=== PATIENT | female | born 1960 | race Caucasian/White ===

== ENCOUNTER 2016-09-12 11:44 | Inpatient (IN) | payer MEDICAID ==
[~2016-09-12] VITALS: Ht 157.5 cm; Wt 82.7 kg
--- NOTE | ~2016-09-12 | HEMODYNAMI ---
PATIENT:JEANETH FARRELL MEDICAL RECORD: [id number] : 58 [id number] ADMISSION DATE: 09/12/16 Generatedon:09/14/201612:28 Patient name: JEANETH FARRELL Patient #: [id number] SSN: : 1960 Date of study: 09/14/2016 Page: Of Hemodynamic Procedure Report Patient Data Patient Demographics Procedure consent was obtained First Name: JEANETH Gender: Female Last Name: JAMI : 1960 Middle Initial: A Age: 56 year(s) Patient #: [id number] Race: Unknown Additional ID: [id number] Contact details [address]: [address] [place] [address] State: [place] City: [facility] Zip code: [address] Admission Admission Data Admission Date: 09/12/2016 Admission Time: 11:44 Room #: D.2105 Height (in.): 62 BSA: 1.88 (m2) Height (cm.): 157.48 BMI: 35.08 (kg/m2) Weight (lbs.): 191.8 Weight (kg.): 87 Lab Results Lab Result Date: 09/14/2016 Lab Result Time: 0:00 Biochemistry Name Units Result Min Max BUN mg/dl 19 --(----)*- 7 18 Creatinine mg/dl 0.9 --(-*--)-- 0.6 1.3 CBC Name Units Result Min Max Hemoglobin g/dl 11.8 *-(----)-- 13.5 17.5 Procedure Procedure Types Cath Procedure Diagnostic Procedure LHC LHC w/Coronaries Miscellaneous Procedures Moderate Sedation up to 15 minutes Procedure Description Procedure Date Procedure Date: 09/14/2016 Procedure Start Time: 12:17 Procedure End Time: 12:27 Procedure Staff Name Function Domenic Aldrich MD Performing Physician Nacho Martinez RN Nurse Arsh Alvarez RT Monitor Abby Eubanks RT Scrub Procedure Data Cath Procedure Fluoroscopy Diagnostic fluoroscopy Total fluoroscopy Time: 0.8 time: 0.8 min min Diagnostic fluoroscopy Total fluoroscopy dose: dose: 180.03 mGy 180.03 mGy Contrast Material Contrast Material Type Amount (ml) Isovue 300 52 Entry Location Entry Primary Successful Side Size Upsize Upsize Entry Closure Succes sful Closure Location (Fr) 1 (Fr) 2 (Fr) Remarks Device Remarks Femoral Right 5 Fr Vascade artery Closure System Estimated blood loss: 10 ml Diagnostic catheters Device Type Used For End Catheter Placement Cordis 5Fr Pigtail LV Angiography Catheter (MP) Cordis 5Fr JL 4.0 Coronary Catheter (MP) Angiography Cordis 5Fr 3DRC Catheter Coronary (MP) Angiography Procedure Complications No complications Procedure Medications Medication Administration Route Dosage Oxygen NC 2 l/min Heparin Flush Bag added to field 2 bags (1000units/500ml NS) 0.9% NaCl I.V. 100 ml/hr Radial Cocktail added to field 1 syringe (Verapomil 2mg/Nitro 400mcg/Heparin 1500units) Fentanyl I.V. 100 mcg Versed I.V. 2 mg Fentanyl I.V. 100 mcg Versed I.V. 2 mg Hemodynamics Rest BSA: 1.88 (m2) HGB: 11.8 (g/dl) O2 Consumption: Estimated: 187.11 (ml/min) O2 Co nsumption indexed: Estimated:99.53 (ml/min/m) Heart Rate: 80 (bpm) Pressure Samples Time Site Value (mmHg) Purpose Heart Use Rate(bpm) 12:19 AO (104) Snapshot 82 Snapshots Pre Cath Intra NCS Post Cath Vital Signs Time Heart Resp SPO2 NIBP (mmHg) Rhythm Pain Sedation Rate (ipm) (%) Status Level (bpm) 12:09:43 81 17 93 139/70(97) NSR 0 (11) 10(A) , No pain 12:14:03 86 17 98 143/79(103) NSR 0 (11) 10(A) , No pain 12:18:27 80 19 97 127/77(104) NSR 0 (11) 10(A) , No pain 12:22:49 90 18 92 133/69(97) NSR 0 (11) 10(A) , No pain 12:27:11 85 18 90 129/71(97) NSR 0 (11) 10(A) , No pain Medications Time Medication Route Dose Verified Delivered Reason Notes Eff ectiveness by by 12:12:14 Oxygen NC 2 l/min Nacho Griffith used for Juan Martinez receiving operator RN 12:12:27 Heparin Flush added 2 bags Nacho Griffith used for Bag to Juan Martinez receiving operator (1000units/500ml field RN NS) 12:12:53 0.9% NaCl I.V. 100 Nacho Griffith Per ml/hr Juan Martinez RN physician RN 12:13:06 Radial Cocktail added 1 Nacho Griffith used for (Verapomil to syringe Juan Martinez receiving operator 2mg/Nitro field RN 400mcg/Heparin 1500units) 12:14:03 Fentanyl I.V. 100 mcg Nacho Griffith for Juan Martinez RN sedation RN 12:14:10 Versed I.V. 2 mg Nacho Chavezy for Juan Martinez RN sedation RN 12:19:16 Fentanyl I.V. 100 mcg Nacho Griffith for Juan Martinez RN sedation RN 12:19:22 Versed I.V. 2 mg Nacho Chavezy for Juan Martinez RN sedation rn relief charge Log Time Note 11:40:07 Nacho Martinez RN sent for patient. Start room use. 11:48:13 Time tracking: Regular hours 11:48:17 Plan of Care:Hemodynamics will remain stable., Cardiac rhythm will remain stable., Comfort level will be maintained., Respiratory function will remain adequate., Patient/ family verbilizes understanding of procedure., Procedure tolerated without complication., Recovers from procedure without complications.. 11:50:21 Patient Height : 157.48 inches 11:50:25 Patient Weight : 87 lbs 11:50:55 Lab Result : Hemoglobin 11.8 g/dl 11:50:55 Lab Result : Creatinine 0.9 mg/dl 11:50:55 Lab Result : BUN 19 mg/dl 11:57:36 Patient received from PCU to CCL 3 Alert and oriented. Tansferred to table in Supine position. 11:57:38 Warm blankets applied, and latha hugger turned on for patient comfort. 11:57:38 Correct patient and procedure confirmed by team. 11:57:39 Signed procedure consent form obtained from patient. 11:57:39 ECG and BP/O2 sat monitors applied to patient. 12:08:21 Vital chart was started 12:08:45 Baseline sample Acquired. 12:08:50 Rhythm: sinus rhythm 12:08:51 Full Disclosure recording started 12:09:03 H&P Date Dictated: 09/12/2016 Within 30 days and on chart.. 12:09:04 Pre-procedure instructions explained to patient. 12:09:04 Pre-op teaching completed and patient verbalized understanding. 12:09:06 Family in waiting room. 12:09:07 Patient NPO since Midnight. 12:09:08 Is the patient allergic to Iodine/contrast media? No. 12:09:11 Is patient on blood thinner?No 12:09:51 ACC The patient was administered the following blood thiners within the last 24 hours: None 12:10:02 Patient diabetic? No. 12:10:04 Patient not . Patient is over age 55. 12:10:05 Previous problem with sedation/anesthesia? No ? 12:10:07 Snore? Yes 12:10:08 Sleep apnea? No 12:10:09 Deviated septum? No 12:10:10 Opens mouth fully? Yes 12:10:11 Sticks out tongue? Yes 12:10:13 Airway obstruction? No ? 12:10:15 Dentures? No ? 12:10:18 Pre procedure: right dorsailis pedis pulse 1+ Palpable, but thready & weak; easily obliterated 12:10:23 Patient pain scale 0/10 ?. 12:10:26 Modified Ruy's test Ulnar < 7 seconds 12:10:33 IV patent on arrival in right forearm with 0.9% NaCl at KVO. 12:10:36 Lab results completed and on chart. 12:10:47 Right Radial & Right Groin area was prepped with chlora-prep and draped in sterile fashion 12:10:48 Alarms reviewed by R. N. 12:10:49 Sharps counted by scrub and verified by R.N. 12:11:06 Use device set Radial Dx 12:11:09 Tegaderm 4 x 4 opened to sterile field. 12:11:11 Acist Hand Control opened to sterile field. 12:11:11 Acist Manifold opened to sterile field. 12:11:12 Acist Syringe opened to sterile field. 12:11:13 Medline Cath Pack opened to sterile field. 12:11:13 Bag Decanter opened to sterile field. 12:11:14 St Fernando 260cm J .035 wire opened to sterile field. 12:12:14 Oxygen 2 l/min NC was given by Nacho Martinez RN; used for procedure; 12:12:27 Heparin Flush Bag (1000units/500ml NS) 2 bags added to field was given by Nacho Martinez RN; used for procedure; 12:12:46 Physician paged 12:12:53 0.9% NaCl 100 ml/hr I.V. was given by Nacho Martinez RN; Per physician; 12:13:06 Radial Cocktail (Verapomil 2mg/Nitro 400mcg/Heparin 1500units) 1 syringe added to field was given by Nacho Martinez RN; used for procedure; 12:13:52 --------ALL STOP TIME OUT------ 12:13:53 Final Timeout: patient, procedure, and site verified with staff and physician. All members of the team are in agreement. 12:13:54 Right Radial & Right Groin site verified by team. 12:13:57 Physical assessment completed. ASA score P 2 - A patient with mild systemic disease as per Domenic Aldrich MD. 12:14:00 Sedation plan: IV Moderate Sedation Versed, Fentanyl 12:14:03 Fentanyl 100 mcg I.V. was given by Nacho Martinez RN; for sedation; 12:14:10 Versed 2 mg I.V. was given by Nacho Martinez RN; for sedation; 12:16:59 Physician opted for femoral approach due to inability to palpate radial pulse. 12:17:03 Procedure started. 12:17:06 Local anesthetic to right femoral artery with Lidocaine 2% by Domenic Aldrich MD.INITIAL ACCESS ONLY 12:17:16 Terumo 5Fr Welcome Sheath opened to sterile field. 12:17:41 Use device set Multipack Set 12:17:43 Diagnostic Infinity 5Fr Multipack catheter opened to sterile field. 12:18:06 A 5 Fr sheath was inserted into the Right Femoral artery 12:18:13 Zero performed for pressure channel P1 12:18:31 A Cordis 5Fr Pigtail Catheter (MP) was advanced over the wire and used for LV Angiography. 12:18:35 LV gram done using FIGUEROA 12:18:42 Zero performed for pressure channel P1 12:19:00 EF : 55 % 12:19:06 Injector settings: Ml/sec: 10, Volume: 20, 12:19:08 Catheter removed. 12:19:16 Fentanyl 100 mcg I.V. was given by Nacho Martinez RN; for sedation; 12:19:17 A Cordis 5Fr JL 4.0 Catheter (MP) was advanced over the wire and used for Coronary Angiography. 12:: Versed 2 mg I.V. was given by Nacho Martinez RN; for sedation; 12:19:29 LCA angiography performed. 12:20: Catheter removed. 12:20:33 A Cordis 5Fr 3DRC Catheter (MP) was advanced over the wire and used for Coronary Angiography. 12:21:08 Vascade 5Fr Closure Device opened to sterile field. 12:21:16 RCA angiography performed. 12:21:33 Catheter removed. 12:21:47 Sheath removed intact; hemostasis achieved with Vascade Closure System to the Right Femoral artery. 12:21:51 Procedure ended.(Physican Out) 12:22:10 Fluoroscopy time 00.80 minutes. 12:22:16 Fluoroscopy dose: 180.03 mGy 12:22:16 Flurop Dose total: 180.03 12:22:19 Contrast amount:Isovue 300 52ml. 12:22:26 Sharps counted by scrub and verified by R.N. 12:22:28 Insertion/operative site no bleeding no hematoma. 12:22:31 Post-op/insertion site Right Femoral artery dressed using a 4 x 4 and Tegaderm. 12:22:32 Post Procedure Pulses reassessed and unchanged 12:22:34 Post-procedure physical assessment completed. ASA score P 2 - A patient with mild systemic disease as per Domenic Aldrich MD. 12:22:37 Post procedure rhythm: unchanged. 12:22:39 Estimated blood loss: 10 ml 12:22:41 Post procedure instruction explained to patient.Patient verbalizes understanding. 12:22:41 Patient needs reinforcement of post procedure teaching. 12:22:49 Procedure Complication : No complications 12:22:57 Procedure type changed to Cath procedure, Diagnostic procedure, LHC, LHC w/Coronaries, Miscellaneous Procedures, Moderate Sedation up to 15 minutes 12:24:22 Procedure and supply charges have been captured, reviewed, submitted and are correct. 12:27:28 Vital chart was stopped 12:27:29 See physician's report for complete and final results. 12:27:33 Report given to PCU. 12:27:52 Patient transfered to PCU with Bed. 12:27:53 Procedure ended. 12:27:53 Full Disclosure recording stopped 12:28:06 End room use (Document Last) Device Usage Item Name Manufacture Quantity Catalog Number Hospital Part Current Minima l Lot# / Charge Number Stock Stock Serial# Code Tegaderm 4 3M 1 [id number] 280781 565609 5 x 4 Acist Hand Acist 1 15801 455103 850446 754044 5 Control Medical Systems Inc Acist Acist 1 19474 969730 081376 271661 5 Manifold Medical Systems Inc Acist Acist 1 11157 902997 298353 872427 20 Syringe Medical Systems Inc Medline Cardinal 1 [id number] 101259 13987 381944 5 Cath Pack Health Bag Microtek 1 2002S 422602 09315 188830 [address] Fernando 1 [id number] 367299 593696 206824 30 260cm J .035 wire Terumo 5Fr Terumo 1 [id number] 695840 438044 477562 40 Welcome Sheath Diagnostic Cardinal 1 [id number] 716459 61518 629197 30 Infinity Health 5Fr Multipack catheter Cordis 5Fr Cardinal 1 [id number] 5 Pigtail Health Catheter (MP) Cordis 5Fr Cardinal 1 [id number] 5 JL 4.0 Health Catheter (MP) Cordis 5Fr Cardinal 1 [id number] 5 3DRC Health Catheter (MP) Vascade Cardiva 1 [id number] 209381 15976 017737 10 5Fr Medical, Closure Inc. Device Signature Audit [place] Stage Time Signature Unsigned Intra-Procedure 09/14/2016 Arsh Alvarez 12:28:18 PM RT(R) Signatures Monitor : Arsh Alvarez RT Signature : Date : Time : [facility] [address] [place] [address]
[~2016-09-12 11:44] MED LIST: BAYER CHEWABLE81 MG PO; CORDARONE200 MG PO; EFFIENT10 MG PO; ELAVIL25 MG PO; HYDROCODONE-APA1 TAB PO; IMDUR30 MG PO; ISOSORBIDE MONO30 M1 PO; NITROSTAT0.4 MG SL; PACERONE200 MG PO; PLAVIX75 MG PO; RANEXA1000 MG PO; SOMA250 MG PO; SOMA350 MG PO; ULTRAM50 MG PO; XANAX1 MG PO; ZANAFLEX2 M1 PO
--- NOTE | 2016-09-12 12:03 | NUR ---
RECEIVED PATIENT DIRECT ADMIT TO ROOM VIA WHEELCHAIR. LOTS OF FAMILY AT BEDSIDE. PATIENT CHANGING INTO GOWN, WILL ASSESS AND ADMIT.
[2016-09-12] MEDS ORDERED: LIPITOR20 MG PO (12:17)
[2016-09-12] MEDS ORDERED: LASIX40 MG PO (12:17)
[2016-09-12 12:18] VITALS: BP 151/92; BMI 35.2
[2016-09-12] MEDS ORDERED: CYMBALTA20 MG PO (12:18)
--- NOTE | 2016-09-12 12:38 | NUR ---
PATIENT HAS 3 DRESSING TO TO ARMS AND HANDS. STATES THAT SHE PLACED THEM THERE TODAY AND THAT IF WE TRY AND REMOVE THEM, HER SKIN WILL TEAR IT IS THIN. PLACED A DATE ON THE DRESSINGS.
[2016-09-12 12:46] LABS: BASOPHILS 0.1 % (0.0-2.0); EOSINOPHILS 0.6 % (0-7); HEMATOCRIT 35.9 % (36.0-48.0); HEMOGLOBIN 11.6 g/dL (12-16); IMMATURE GRANULOCYTES 0.8 % (0-5); LYMPHOCYTES 10.1 % (15-50); MCHC 32.3 g/dL (31.0-37.0); MONOCYTES 9.9 % (2-11); NEUTROPHILS 78.5 % (40-80); PLATELET COUNT 141 10x3/uL (130-400); RBC 3.52 10x6/uL (4.00-5.40); RDW 13.3 % (11.5-14.5); WBC 8.6 10x3/uL (4.8-10.8)
[2016-09-12 13:03] LABS: ALBUMIN 3.1 g/dL (3.4-5.0); ANION GAP 10.4 mmol/L (8-16); BILIRUBIN - TOTAL 0.35 mg/dL (0.2-1.3); CALCIUM 8.7 mg/dL (8.5-10.1); CARBON DIOXIDE 32.7 mmol/L (21.0-32.0); CREATININE - SERUM 0.9 mg/dL (0.6-1.3); POTASSIUM - SERUM 3.1 mmol/L (3.5-5.1); PROTEIN - SERUM 6.1 g/dL (6.4-8.2)
--- NOTE | 2016-09-12 13:09 | NUR ---
IV access-22 gauge inserted in left hand x 1 attempts. Davina Mcbride RN
--- NOTE | 2016-09-12 13:40 | NUR ---
SALINE LOCK SEEN TO LEFT THUMB AREA PER JESSICA ARNOLD, VENOUS ACCESS NURSE. EKG DONE ORDERED.
--- NOTE | 2016-09-12 14:31 | NUR ---
UA SENT TO LAB ORDERED
--- NOTE | 2016-09-12 14:44 | NUR ---
NEW MEDICATION OF LOVENOX, PROTONIX, AND BUMEX GIVEN TO PATIENT AND EXPLAINED IN THE USEAGE OF IT. DAUGHTER AT BEDSIDE.
--- NOTE | 2016-09-12 16:26 | NUR ---
PAGE TO DR WONG TO CLARIFY GIVING BUMEX 2 MG IV I JUST GAVE ORAL AT 1437. AWAITING CALL BACK.
[2016-09-12 16:27] VITALS: BP 151/53
--- NOTE | 2016-09-12 16:27 | NUR ---
RECEIVED CALL BACK FROM DR WONG AND WAS TOLD TO GIVE THE IV NOW ORDERED.
[2016-09-12 20:00] VITALS: BP 151/50; BP 153/86
[2016-09-13] VITALS: BP 100/68
[2016-09-13 04:00] VITALS: BP 131/79
--- NOTE | 2016-09-13 07:08 | NUR ---
ROUNDING MADE WITH MALE MEMBER ASLEEP IN THE CHAIR. PATIENT DENIES NEEDS AT PRESENT TIME. SALINE LOCK SEEN TO LEFT THUMB AREA, SLIGHTLY SWOLLEN. WILL NEED TO TRY AND RESITE IT. PATIENT NEEDS ANOTHER POTASSIUM RIDER, WILL SWITCH TO PO INSTEAD IV IS NOT LOOKING WORKABLE. BILATERAL LOWER LEGS UP ON PILLOWS, 2-3+ EDEMA SEEN. BILATERAL FEET ARE STILL PUFFY. WILL CONTINUE TO MONITOR.
[2016-09-13 07:32] VITALS: BP 145/71
--- NOTE | 2016-09-13 07:48 | NUR ---
20 G SALINE LOCK TO LEFT FOREARM PER LAUREN JIMENEZ RN X 1 STICK. OLD SALINE LOCK REOVED WITH CATH TIP INTACT.
--- NOTE | 2016-09-13 08:35 | NUR ---
0829-REQUESTING [place] FOR HER LEGS AND FEET PAIN. GIVEN.
[2016-09-13 11:34] VITALS: BP 127/64
[2016-09-13 13:03] VITALS: Ht 157.5 cm; Wt 82.7 kg
--- NOTE | 2016-09-13 13:17 | NUR ---
Patient Name: JEANETH FARRELL Admission Status: Elective Accout number: [id number] Admission Date: 09-12-2016 : 1960 Admission Diagnosis: Attending: DANIEL Current LOS: 1 Anticipated DC Date: Planned Disposition: Home Primary [place]: [place] [employer] [place] Discharge Planning Comments: * Is the patient Alert and Oriented? Yes 0 * How many steps to enter\exit or inside your home? 1 0 * PCP DR. PEREZ 0 * Pharmacy [facility] 0 * Preadmission Environment Home with Family 0 * ADLs Independent 0 * Equipment Crutch Walker 0 * Other Equipment NO MEDICAL EQUIPMENT PROVIDER PREFERENCE 0 * List name and contact numbers for known caregivers / representatives who currently or will assist patient after discharge: GARETH FARRELL, SPOUSE, SUDHAKAR HEARD, SISTER, 0 * Community resources currently utilized None 0 * Please name any agencies selected above. NONE 0 * Additional services required to return to the preadmission environment? No 0 * Can the patient safely return to the preadmission environment? Yes 0 * Has this patient been hospitalized within the prior 30 days at any hospital? No 0 CM MET WITH PT IN ROOM TO DISCUSS DISCHARGE PLANNING AND NEEDS. PT REPORTS LIVING AT HOME INDEPENDENTLY WITH HER SPOUSE. PT HAS WALKER AND CRUTCHES FROM PREVIOUS SURGERY IF NEEDED AND NO MEDICAL EQUIPMENT PROVIDER PREFERENCE. PT HAS NO OUTSIDE SERVICES ASSISTING IN THE HOME. CM DISCUSSED AVAILABILITY OF HOME HEALTH, REHAB SERVICES AND MEDICAL EQUIPMENT. PT DENIES DISCHARGE NEEDS, REPORTS HER SISTER OR SPOUSE WILL PICK HER UP FOR DISCHARGE HOME. PT PLANS TO DISCHARGE HOME WITH SPOUSE, NO ANTICIPATED NEEDS. CM TO FOLLOW AND ASSIST IF NEEDED. Measuring Machine Operator: Lavelle Yee
--- NOTE | 2016-09-13 14:30 | NUR ---
3 DRESSING'S TOTAL TO ARMS CHANGED PATIENT TOOK SHOWER. THESE DRESSING WERE FROM YESTERDAY. ALL REMOVED, CLEAN SKIN TEARS SEEN, MEPILEX APPLIED AND DATED. TOLERATED WELL.
[2016-09-13 15:33] VITALS: BP 117/47
--- NOTE | 2016-09-13 17:59 | NUR ---
HEART CATH PERMIT SIGNED AND WITNESSED FOR TOMORROW, PLACED ON CHART.
[2016-09-13 20:00] VITALS: BP 125/62
--- NOTE | 2016-09-13 21:04 | NUR ---
PT AWAKE, ALERT, ORIENTED, DENIES ANY ACUTE NEEDS AT THIS TIME. CONTINUE TO MONITOR CLOSELY.
[2016-09-14] VITALS: BP 133/48
[2016-09-14 04:00] VITALS: BP 111/67
--- NOTE | 2016-09-14 05:54 | NUR ---
PT AWAKE, ALERT, ORIENTED, JUST RECEIVED HER HIBICLENS BATH PRIOR TO CARDIAC CATH THIS AM. CONTINUE TO MONITOR CLOSELY. AT BEDSIDE.
[2016-09-14 05:58] LABS: BASOPHILS 0.1 % (0.0-2.0); EOSINOPHILS 1.1 % (0-7); HEMATOCRIT 36.7 % (36.0-48.0); HEMOGLOBIN 11.8 g/dL (12-16); IMMATURE GRANULOCYTES 3.4 % (0-5); LYMPHOCYTES 11.5 % (15-50); MCH 33.5 pg (26.0-34.0); MCHC 32.2 g/dL (31.0-37.0); MEAN PLATELET VOLUME 10.6 fL (7.4-10.4); MONOCYTES 11.8 % (2-11); NEUTROPHILS 72.1 % (40-80); PLATELET COUNT 136 10x3/uL (130-400); RBC 3.52 10x6/uL (4.00-5.40); RDW 13.5 % (11.5-14.5); WBC 8.4 10x3/uL (4.8-10.8)
[2016-09-14 06:03] LABS: ANION GAP 6.1 mmol/L (8-16); CALCIUM 8.8 mg/dL (8.5-10.1); CARBON DIOXIDE 38.2 mmol/L (21.0-32.0); CREATININE - SERUM 0.9 mg/dL (0.6-1.3)
[2016-09-14 06:10] LABS: POTASSIUM - SERUM 4.3 mmol/L (3.5-5.1)
[2016-09-14 06:13] LABS: MCV 104.3 fL (80.0-100.0)
--- NOTE | 2016-09-14 07:36 | NUR ---
PT SITTING UP IN BED DENIES NEEDS WILL CONT TO MONITOR.
[2016-09-14 07:43] VITALS: BP 125/51
--- NOTE | 2016-09-14 09:57 | NUR ---
PT REPORTING ANXIETY RELATED TO UPCOMING PROCEDURE AND REQUESTS XANAX. XANAX 0.5MG GIVEN PO AFTER PT ASSISTED TO RESTROOM TO VOID PER YUMI PIPER NPC STUDENT.
[2016-09-14 11:17] VITALS: BP 135/66
--- NOTE | 2016-09-14 12:15 | NUR ---
PT HAS LEFT FOR THE MEDICAL AFFAIRS SPECIALIST ABOUT 30 MINS AGO. PT WITH NO PROBLEMS THE DURATION OF THE DAY. HAS BEEN AT BEDSIDE. AND REMAINS IN ROOM DURING PT PROCEDURE. WILL CONT POC
--- NOTE | 2016-09-14 12:38 | NUR ---
PT BACK FROM [facility] SITE WNL. VS WNL. ORDERED PT LUNCH TRAY AT BEDSIDE WILL CONT TO MONITOR.
[2016-09-14 13:05] LABS: APPEARANCE HAZY (CLEAR); COLOR COLORLESS (YELLOW)
[2016-09-14 13:06] LABS: BACTERIA NONE SEEN /hpf (NONE SEEN); BILIRUBIN NEGATIVE (NEGATIVE); EPITHELIAL CELLS NSEEN /hpf (0-5); GLUCOSE NEGATIVE (NEGATIVE); KETONE NEGATIVE (NEGATIVE); LEUKOCYTE ESTERASE NEGATIVE (NEGATIVE); NITRITE NEGATIVE (NEGATIVE); PROTEIN NEGATIVE (NEGATIVE); RED CELLS - URINE RARE /hpf (0-5); SPECIFIC GRAVITY 1.005 (1.005-1.020); UROBILINOGEN NORMAL (NORMAL); WHITE CELLS - URINE NSEEN /hpf (0-5)
--- NOTE | 2016-09-14 13:07 | NUR ---
R GROIN SITE STILL WNL. VS STILL WNL AT BEDSIDE.
--- NOTE | 2016-09-14 15:01 | NUR ---
RESUMED CARE OF PT AT THIS TIME PT LAYING IN BED FLAT UNTIL 1430 THEN BEDREST UP RIGHT GROIN AREA NO HEMOTOMA AND NO BLEEDING OBSERVED CALL LIGHT IN REACH SRX2 BED LOW AND LOCKED RESPERATIONS EVEN AND UNLABORED IVP INFUSING FLUIDS ORDERED AND FAMILY IN ROOM AT BED SIDE WILL MONITOR
[2016-09-14 15:52] VITALS: BP 148/63
[2016-09-14 20:00] VITALS: BP 139/52
[2016-09-15 04:00] VITALS: BP 126/65
--- NOTE | 2016-09-15 05:48 | NUR ---
NURSE ROUNDS 19:30 - PT AWAKE, ALERT, ORIENTED, ON HER CELL PHONE TALKING, AT BEDSIDE. PT DENIES ANY NEEDS. RT GROIN INCISION CLEAN, DRY, INTACT. CONTINUE TO MONITOR CLOSELY.
[2016-09-15 08:08] VITALS: BP 138/69
--- NOTE | 2016-09-15 08:42 | NUR ---
PT CRYING AND VERBALIZING CONCERNS OF UPCOMING PROCEDURE.XANAX 0.5MG GIVEN PER PT REQUEST. PT REPORTING PAIN OF 7 OR 8 OUT OF 10 IN HER FEET NORCO GIVEN PER PT REQUEST. REMAINS AT BEDSIDE, DENIES FURTHER NEEDS.
[2016-09-15 10:50] LABS: CALCIUM 8.8 mg/dL (8.5-10.1); CARBON DIOXIDE 32.9 mmol/L (21.0-32.0); CHLORIDE - SERUM 102 mmol/L (98-107); CREATININE - SERUM 0.8 mg/dL (0.6-1.3); GLUCOSE 92 mg/dL (74-106); SODIUM 140 mmol/L (136-145); eGFR NON AFRICAN AMERICAN 78 mL/min (90-120)
[2016-09-15 10:55] LABS: CALC OSMOLALITY 282 mosm/kg (275-300); COMPLEMENT C4 18.2 mg/dL (17.4-52.2); UREA NITROGEN 24 mg/dL (7-18)
[2016-09-15 10:56] LABS: C-REACTIVE PROTEIN < 0.2 mg/dL (0.0-0.9); POTASSIUM - SERUM 5.1 mmol/L (3.5-5.1)
[2016-09-15 12:27] VITALS: BP 125/64
--- NOTE | 2016-09-15 13:28 | NUR ---
Nutrition follow-up: Diet: low sodium PO intake ~75-100% of meals Labs reviewed Wt: 186# PO intake good at this time RDN following.
[2016-09-15 16:00] VITALS: BP 123/58
--- NOTE | 2016-09-15 19:30 | NUR ---
RECEIVED PT IN BED AAOX4 VISITING WITH FAMILY REQUESTING ZANEFLEX XANAX AND NORCO WITH BEDTIME MEDS STATES CRAMPING AL OVER
[2016-09-15 20:00] VITALS: BP 131/70
[2016-09-16] VITALS: BP 126/66
[2016-09-16 04:00] VITALS: BP 106/73
[2016-09-16 08:00] VITALS: BP 113/67
--- NOTE | 2016-09-16 08:47 | OP ---
PATIENT NAME: JEANETH FARRELL MEDICAL RECORD: [id number] :58 LOCATION:D.M2 D.2105 ADMISSION DATE:09/12/16 SURGEON: JANNA WONG MD DATE OF OPERATION: 09/14/2016 PROCEDURES: 1. Left heart catheterization. 2. Selective coronary angiography. 3. Left ventriculogram. INDICATIONS: Coronary artery disease, upcoming mitral valve surgery. PROCEDURE IN DETAIL: After informed consent was obtained and after a detailed explanation of the risks, benefits as well as alternative therapies, the patient elected to proceed with angiogram and heart catheterization. The right femoral area was prepped and draped in normal sterile fashion. The right femoral artery was cannulated via modified Seldinger technique with placement of a 5-Kiswahili sheath. All catheters exchanged through this sheath. FINDINGS: Left ventriculogram was performed in the standard 30-degree FIGUEROA view, reveals good cardiac wall motion throughout all segments. Overall ejection fraction estimated at 55%. There is 3+ mitral regurgitation. SELECTIVE CORONARY ANGIOGRAPHY: 1. Left main showed no significant angiographic disease. 2. Left anterior descending has previously placed stent in the mid vessel that is widely patent. Distal stent is as well widely patent. Distal LAD is very small. 3. Left circumflex has moderate irregularities, but no flow-limiting stenosis. 4. Right coronary has moderate irregularities, but no flow-limiting stenosis. OVERALL IMPRESSION: No new coronary artery disease is present. Significant mitral regurgitation is present. Evaluate for mitral valve repair or replacement. TRANSINT:[id number] Voice Confirmation ID: [id number] DOCUMENT ID: [id number] JANNA WONG MD at 0847 CC: [id number] DICTATION DATE: 09/14/16 1226 RECONDITIONING ASSOCIATE: 09/14/16 1355 [place] [address]
--- NOTE | 2016-09-16 08:47 | EC ---
PATIENT:JEANETH FARRELL DATE OF SERVICE: 09/12/16 SEX: F MEDICAL RECORD: [id number] DATE OF : [birth year] LOCATION:D.M2 D.210 AGE OF PATIENT: 56 ADMISSION DATE: 09/12/16 REFERRING PHYSICIAN: INTERPRETING PHYSICIAN: JANNA ALDRICH MD ECHOCARDIOGRAM REPORT ECHO CHARGES 4 ECHO COMPLETE CLINICAL DIAGNOSIS: LE EDEMA ECHOCARDIOGRAPHIC MEASUREMENTS (adult normal given) AC root (d.<3.7cm) 3.0 LV Septum d (<1.2 cm> 1.7 Valve Excursion 1.8 LV Septum (systole) 2.1 Left Atria (s.<4.0cm> 4.2 LVPW d(<1.2cm) 1.4 RV (d.<2.3cm) 3.0 LVPW (sytole) 2.2 LV diastole(<5.6CM) 4.3 MV E-F(>70mm/sec) LV systole 2.2 LVOT Diameter 1.8 MV exc.(>10mm) Est.ejection fraction (50-75%) Pericardial Effusion N DOPPLER: LVIT A 101 E 118 LA RVSP 53.0 LVOT 167 AOP1/2T Asc. Ao 190 RVOT 106 RA PA 172 AV Gradient Peak 15.0 AV Mean 6.1 AV Area 2.0 MV Gradient Peak 7.4 MV Mean 3.1 MV Area COMMENTS: Primary Therapist: Karyna ROSAOE Medical Staff Coordinator:1 Dr. Aldrich TAPE# PACS DATE OF SERVICE: 09/12/2016 Echocardiogram FINDINGS: 1. Left ventricular chamber size is within normal limits. Left ventricular systolic function is normal. Overall ejection fraction estimated at 65%. 2. Left atrium is enlarged at 4.3 cm. Right atrium and right ventricular chamber sizes are within normal limits. 3. Valvular structures have normal structure and motion. ECHOCARDIOGRAM REPORT [id number] JEANETH FARRELL 4. Doppler interrogation reveals moderate mitral regurgitation, mild tricuspid regurgitation, no other valvular insufficiency or stenosis, but pulmonary systolic pressure is elevated estimated at 53 mmHg. 5. No evidence of pericardial effusion or left ventricular thrombus. TRANSINT:[id number] Voice Confirmation ID: [id number] DOCUMENT ID: [id number] JANNA ALDRICH MD at 0847 CC: YULI PEREZ MD [id number] DICTATION DATE: 09/12/16 1555 DIRECTOR OF COLLECTIONS AND ARCHIVES: 09/13/16 0030 ADM IN [place] [id number] [place] [id number]
--- NOTE | 2016-09-16 08:47 | CN ---
PATIENT NAME:JEANETH ZAMBRANO MEDICAL RECORD: [id number] : 58 LOCATION:D. D.2105 ADMIT DATE: 09/12/16 ACCOUNT: [id number] CONSULTING PHYSICIAN: JANNA WONG MD REFERRING PHYSICIAN: YULI PEREZ MD DATE OF CONSULTATION: 09/12/2016 Cardiology Consultation DIAGNOSES: 1. Mitral regurgitation. 2. Hypertension. 3. Lower extremity edema. 4. Coronary artery disease. 5. Previous coronary stenting. 6. Hyperlipidemia. HISTORY OF PRESENT ILLNESS: Mrs. Zambrano presents with increasing lower extremity edema, was admitted for diuresis. She had an echocardiogram today revealing pulmonary systolic pressure 53 with moderate mitral regurgitation. Last echo we did on her was in 2013. She only had trace mitral regurgitation at that time and a normal pulmonary systolic pressure of 36. She does have a history of coronary artery disease, previous PTCA stent, the last being 2 years ago of the LAD. She has had no recurrent anginal symptomatology. Her troponin is normal. PHYSICAL EXAMINATION: GENERAL APPEARANCE: Well-nourished, well-developed, appears stated age. Level of distress, comfortable. PSYCHIATRIC: Mental status, alert, normal affect. Orientation, oriented to time, place and person. EYES: Lids and conjunctiva, noninjected. No discharge, no pallor. ENT: Lips, teeth, gums, normal dentition. Oropharynx, no cyanosis, no pallor. NECK: Carotid arteries, bilateral normal upstroke, no bruits, no thrills. JUGULAR VEINS: No jugular venous pressure or distention. CERVICAL LYMPH NODES: Nontender, nonenlarged. THYROID: Not enlarged. Nontender. No nodules. LUNGS: Respiratory effort, unlabored. CHEST: Normal curvature. No thoracic deformity. No chest wall tenderness. Percussion, resonant. Auscultation, clear. No wheezes, no rales, no rhonchi. CARDIOVASCULAR: Precordial exam, nondisplaced. No heaves or pericardial thrills. Rate and rhythm, regular. Heart sounds, normal S1, normal S2. No S3, no gallop, no rub. Systolic murmur, not heard. Diastolic murmur, not heard. EXTREMITIES: Lower extremity examination: She has a 3+ pitting edema of her lower extremity with weeping. ABDOMEN: Soft, nondistended. Normal aorta. No bruit. Nontender. No masses. Liver, nontender, no hepatomegaly. Spleen, nontender, no splenomegaly. MUSCULOSKELETAL: No joint tenderness. No joint swelling. No erythema. NEUROLOGICAL: Normal gait, normal strength, normal tone. SKIN: Warm and dry. OVERALL IMPRESSION: Mitral regurgitation, pulmonary hypertension with resultant lower extremity edema. At this time, mainstay of therapy will be diuresis. We will change her to IV diuresis. We will consult Dr. Brown for possible valve repair in light of the increased mitral regurgitation and pulmonary CONSULT REPORT [id number] JEANETH ZAMBRANO hypertension. TRANSINT:[id number] Voice Confirmation ID: [id number] DOCUMENT ID: [id number] JANNA WONG MD at 0847 CC: [id number] DICTATION DATE: 09/12/16 1619 INCENDIARY POWDER MIXER: 09/12/16 2222 ADM IN [facility] [address] [place] [address]
--- NOTE | 2016-09-16 08:55 | NUR ---
BRIELLE IS RESTING IN HER BED, HOB UP 45 DEGREES. SHE STATES THAT HER HIPS, LOWER LEGS AND HER HEAD ARE HURTING HER. MEDICATED HER PER ORDERS. SHE GAVE AN EXTENSIVE HISTORY OF HER MEDICAL CONDITION AND IS KNOWLEDGABLE ABOUT THEORIES FOR HER CURRENT CONDITION. SHE IS HOPEFUL TO RETURN HOME SOON, SHE HAS A 3 MONTH GRANDDAUGHTER THAT SHE IS CAREGIVER FOR 6 DAYS WEEKLY. SHE HAS NUMEROUS BANDAGES ON BLE DUE TO SKIN TEARS. SHE STATES THAT HER SKIN IS VERY FRAGILE AND SHE BRUISES FOR REASONS THAT ARE UNKNOWN TO HER. TELEMETRY IS ON AND RECORDING SR 77BPM. SHE IS AWARE OF MURMUR AND ANTICIPATES VALVE REPLACEMENT IN THE FUTURE. SHE STATES THAT HER LEGS ARE MUCH IMPROVED. SHE HAS ONLY TRACE EDEMA IN THE RLE.
[2016-09-16 09:58] LABS: BASOPHILS 0.1 % (0.0-2.0); EOSINOPHILS 0.7 % (0-7); HEMATOCRIT 35.6 % (36.0-48.0); HEMOGLOBIN 11.3 g/dL (12-16); IMMATURE GRANULOCYTES 1.9 % (0-5); MCH 32.8 pg (26.0-34.0); MCHC 31.7 g/dL (31.0-37.0); MCV 103.2 fL (80.0-100.0); MEAN PLATELET VOLUME 9.9 fL (7.4-10.4); MONOCYTES 9.7 % (2-11); NEUTROPHILS 78.6 % (40-80); PLATELET COUNT 159 10x3/uL (130-400); RBC 3.45 10x6/uL (4.00-5.40); RDW 13.8 % (11.5-14.5); WBC 10.7 10x3/uL (4.8-10.8)
--- NOTE | 2016-09-16 10:02 | NUR ---
PATIENT IS RESTING QUIETLY WITH EYES CLOSED WHEN I ENTER. SHE OPENS EYES WITHOUT VERBAL STIMULI. SHE STATES HTAT SHEIS RELAXING AND WHEN DOING SO SHE CAN GET HER PAIN DOWN TO A 4. SHE DENIES ANY NEEDS AT THIS TIME.
[2016-09-16 10:09] LABS: ANION GAP 8.2 mmol/L (8-16); CALCIUM 8.8 mg/dL (8.5-10.1)
[2016-09-16 10:14] LABS: POTASSIUM - SERUM 4.2 mmol/L (3.5-5.1)
[2016-09-16 12:00] VITALS: BP 100/56
[2016-09-16 13:16] LABS: ANA REFLEX - DBL STRANDED DNA 1 IU/mL (0-9); ANA REFLEX - DIRECT Negative (Negative)
[2016-09-16 16:00] VITALS: BP 120/73
[2016-09-16 21:01] VITALS: BP 132/59
--- NOTE | 2016-09-16 23:08 | NUR ---
INITIAL ROUNDS COMPLETED AT 1920 HRS. PT DENIED ANY DISCOMFRT. SPOUSE AT BEDSIDE. ASSESSMENT COMPLETED AT 2019 RHS. VSS. SR PER CM HR 84. IV TO RFA SL. NUMEROUS BRUISES AND SKIN TEARS NOTED TO BILAT ARMS. BRUISES NOTED TO BILAT LOWER LEGS. ALERT AND ORIENTED TO PERSON, PLACE AND TIME. PM MEDS GIVEN. IV TO RFA OCCLUDED. DC'S WITH CATHETER INTACT. NEW IV STARTED AT 2200 HRS. # 22 TO LAC WITH ATTEMPT X2. PT TOLERATED ACTIVITY WELL. WILL CONTINUE TO MONITOR. SR UP X2, CALL LIGHT WITHIN REACH.
--- NOTE | 2016-09-17 00:19 | NUR ---
PT RESTING WITH EYES CLOSED. RESP EVEN AND REGULAR. SR UP X2, CALL LIGHT WITHIN REACH.
[2016-09-17 01:01] VITALS: BP 116/63
--- NOTE | 2016-09-17 03:02 | NUR ---
PT RESTING WITH EYES CLOSED. RESP EVEN AND REGULAR. SR UP X2, CALL LIGHT WITHIN REACH.
--- NOTE | 2016-09-17 04:19 | NUR ---
PT AWAKE; DENIES ANY DISCOMFORT. WILL CONTINUE TO MONITOR.
[2016-09-17 04:57] VITALS: BP 112/57
--- NOTE | 2016-09-17 06:05 | NUR ---
VSS THROUGHOUT NIGHT. SR PER CM. PT DENIED ANY DISCOMFORT. NEEDS MET; WILL CONTINUE TO MONITOR.
--- NOTE | 2016-09-17 07:00 | NUR ---
RECEIVED REPORT. ASSUMED CARE OF PATIENT. CALL LIGHT WITHIN REACH. DENIES NEEDS AT THIS TIME. PATIENT STATING SHE SHOULD GET TO GO HOME TODAY. NO DISCHARGE ORDERS AT THIS TIME. NO DISTRESS.
[2016-09-17 08:06] VITALS: BP 133/68
--- NOTE | 2016-09-17 09:54 | NUR ---
MEDICATED FOR PAIN AND ANXIETY AT THIS TIME. NO DISTRESS. CALL LIGHT WIHTIN REACH. SPOUSE WITH EYES CLOSED IN CHAIR AT BEDSIDE.
--- NOTE | 2016-09-17 11:15 | NUR ---
PROTONIX PRESCRIPTION CALLED TO [facility] AND SPOKE TO BISHNU. 40MG PO DAILY X 1 MONTH SUPPLY PER .
[2016-09-17 12:00] VITALS: BP 163/97
--- NOTE | 2016-09-17 13:28 | NUR ---
1255 DISCHARGE INSTRUCTIONS PROVIDED TO PATIENT. PATIENT VERBALZIED ALL INSTRUCTIONS PROVIDED. 1310 IV REMOVED FROM LEFT FOREARM. NO BLEEDING FROM SITE. 2X2 GAUZE APPLIED AND SECURED WITH TAPE. CATHETER TIP INTACT. TELEMETRY D/C'D. PATIENT ASSISTED TO GET DRESSED. PATIENT SPOUSE AT BEDSIDE. 1328 PATIENT LEFT UNIT WITH ALL PERSONAL BELONGINGS. PATIENT DISCHARGED TO HOME WITH FAMILY. PATIENT LEFT UNIT IN WHEELCHAIR IN NO DISTRESS AT THIS TIME.
[2016-09-19 16:13] LABS: ANCA - ANTIMYELOPEROXIDASE <9.0 U/mL (0.0-9.0); ANCA - ANTIPROTEINASE 3 <3.5 U/mL (0.0-3.5); ANCA - ATYPICAL <1:20 titer (Neg:<1:20); ANCA - CYTOPLASMIC <1:20 titer (Neg:<1:20); ANCA - PERINUCLEAR <1:20 titer (Neg:<1:20)
== END 2016-09-17 13:30 | disposition home or self-care (01) | DRG 286 ==
LOC: D.M2 11:44
PROVIDERS: Internal Medicine Interventional Cardiology; ADMIT Legal Medicine
PROC: B2151ZZ Fluoroscopy of Left Heart using Low Osmolar Contrast (ICD-10-PCS; 2016-09-14)
PROC: 4A023N7 Measurement of Cardiac Sampling and Pressure, Left Heart, Percutaneous Approach (ICD-10-PCS; 2016-09-14)
PROC: B2111ZZ Fluoroscopy of Multiple Coronary Arteries using Low Osmolar Contrast (ICD-10-PCS; principal; 2016-09-14 11:45)
DX: I25.10 Atherosclerotic heart disease of native coronary artery without angina pectoris (principal); I50.21 Acute systolic (congestive) heart failure; Z95.5 Presence of coronary angioplasty implant and graft; I34.0 Nonrheumatic mitral (valve) insufficiency; I11.0 Hypertensive heart disease with heart failure; E78.5 Hyperlipidemia, unspecified; M25.412 Effusion, left shoulder; M75.92 Shoulder lesion, unspecified, left shoulder; F41.1 Generalized anxiety disorder; M25.569 Pain in unspecified knee; N20.0 Calculus of kidney; D18.09 Hemangioma of other sites; I48.91 Unspecified atrial fibrillation

== ENCOUNTER → 2016-09-21 08:32 | Outpatient (CLI) | payer MEDICAID ==
[2016-09-13 13:03] VITALS: BMI 35.1
[~2016-09-21 08:32] MED LIST changes: +CYMBALTA20 MG PO; +LASIX40 MG PO; +LIPITOR20 MG PO
--- NOTE | 2016-10-03 10:08 | EC ---
PATIENT:JEANETH FARRELL DATE OF SERVICE: 09/21/16 SEX: F MEDICAL RECORD: [id number] DATE OF : 58 LOCATION:D.[facility] AGE OF PATIENT: 56 ADMISSION DATE: 09/21/16 REFERRING PHYSICIAN: INTERPRETING PHYSICIAN: JANNA ALDRICH MD ECHOCARDIOGRAM REPORT ECHO CHARGES 4 ECHO COMPLETE CLINICAL DIAGNOSIS: CHF ECHOCARDIOGRAPHIC MEASUREMENTS (adult normal given) AC root (d.<3.7cm) 3.0 LV Septum d (<1.2 cm> 1.4 Valve Excursion 1.8 LV Septum (systole) 2.0 Left Atria (s.<4.0cm> 4.1 LVPW d(<1.2cm) 1.3 RV (d.<2.3cm) 2.2 LVPW (sytole) 1.9 LV diastole(<5.6CM) 4.2 MV E-F(>70mm/sec) LV systole 2.0 LVOT Diameter 1.7 MV exc.(>10mm) Est.ejection fraction (50-75%) Pericardial Effusion N DOPPLER: LVIT A 86.0 E 112 LA RVSP 37.4 LVOT 126 AOP1/2T Asc. Ao 176 RVOT 88.0 RA PA 113 AV Gradient Peak 12.4 AV Mean 5.3 AV Area 1.7 MV Gradient Peak 6.6 MV Mean 2.4 MV Area COMMENTS: Live In Caregiver: Karyna ROSAOE Production Drilling Machine Operator:1 Dr. Aldrich TAPE# PACS DATE OF SERVICE: 09/21/2016 FINDINGS: 1. Left ventricular chamber size is within normal limits. Left ventricular systolic function is normal. Overall ejection fraction estimated at 60%. 2. Left atrium is mildly enlarged at 4.1 cm. Right atrium and right ventricular chamber sizes are within normal limits. 3. Valvular structures: Aortic valve demonstrates mild calcific aortic stenosis. Valve area calculates to 1.7 cm-squared. There is a gradient of 12 mm across the valve. The remaining valvular structures have normal structure ECHOCARDIOGRAM REPORT [id number] JEANETH FARRELL and motion. 4. Doppler interrogation reveals mild to moderate mitral regurgitation, only mild tricuspid regurgitation, no other valvular insufficiency or stenosis. Pulmonary systolic pressure is normal estimated at 37 mmHg. 5. No evidence of pericardial effusion or left ventricular thrombus. TRANSINT:[id number] Voice Confirmation ID: [id number] DOCUMENT ID: [id number] JANNA ALDRICH MD at 1008 CC: [id number] DICTATION DATE: 09/21/16 1324 CLINICAL SOCIAL WORK AIDE: 09/22/16 0037 DEP CLI 09/21/16 [place] [id number] [place] [id number]
== END | disposition home or self-care (01) ==
LOC: D.ECHO 08:32
DX: I50.21 Acute systolic (congestive) heart failure (principal); I34.0 Nonrheumatic mitral (valve) insufficiency

== ENCOUNTER → 2016-10-06 13:19 | Outpatient (CLI) | payer MEDICAID ==
[2016-09-13 13:03] VITALS: BMI 35.1
== END | disposition home or self-care (01) ==
LOC: D.US 13:00
DX: R10.31 Right lower quadrant pain (principal)

== ENCOUNTER → 2016-10-13 12:32 | Outpatient (CLI) | payer MEDICAID ==
[2016-09-13 13:03] VITALS: BMI 35.1
== END | disposition home or self-care (01) ==
LOC: D.CT 12:32
DX: R10.9 Unspecified abdominal pain (principal); R10.2 Pelvic and perineal pain

== ENCOUNTER → 2016-11-02 13:46 | Outpatient (CLI) | payer MEDICAID ==
[2016-09-13 13:03] VITALS: BMI 35.1
== END | disposition home or self-care (01) ==
LOC: D.LABREF 13:46
DX: E87.6 Hypokalemia (principal)

== ENCOUNTER 2016-12-19 21:30 | Emergency (ER) | payer MEDICAID ==
[2016-09-13 13:03] VITALS: BMI 35.1
[2016-12-19 22:12] LABS: BASOPHILS 0.1 % (0-2); EOSINOPHILS 0.3 % (0-7); HEMOGLOBIN 14.2 g/dL (12-16); IMMATURE GRANULOCYTES 0.3 % (0-5); LYMPHOCYTES 18.3 % (15-50); MCH 33.3 pg (26.0-34.0); MCHC 33.8 g/dL (31.0-37.0); MCV 98.6 fL (80.0-100.0); MEAN PLATELET VOLUME 9.8 fL (7.4-10.4); MONOCYTES 10.2 % (2-11); NEUTROPHILS 70.8 % (40-80); RBC 4.26 10x6/uL (4.00-5.40); WBC 9.1 10x3/uL (4.8-10.8)
[2016-12-19 22:13] LABS: PLATELET COUNT 203 10x3/uL (130-400)
[2016-12-19 22:24] LABS: ALBUMIN 3.5 g/dL (3.4-5.0); ANION GAP 13.7 mmol/L (8-16); BILIRUBIN - TOTAL 0.54 mg/dL (0.2-1.3); CARBON DIOXIDE 29.9 mmol/L (21.0-32.0); CREATININE - SERUM 0.9 mg/dL (0.6-1.3); POTASSIUM - SERUM 3.6 mmol/L (3.5-5.1); PROTEIN - SERUM 7.6 g/dL (6.4-8.2)
[2016-12-19 22:55] LABS: CHOL - HDL RATIO 2.9 ratio (2.3-4.1); CHOLESTEROL, TOTAL 194 mg/dL (0-200); CKMB 0.4 U/L (0.0-3.6); HDL CHOLESTEROL 67 mg/dL (32-96); LDL CHOLESTEROL 111 mg/dL (0-100); LDL-HDL RATIO 1.7 ratio (1.5-3.5); TRIGLYCERIDE 82 mg/dL (30-200); TROPONIN-I 0.004 ng/mL (0.000-0.060)
== END 2016-12-19 23:49 | disposition home or self-care (01) ==
LOC: D.ER 21:30
PROVIDERS: Emergency Medicine
DX: R07.9 Chest pain, unspecified (principal); R06.00 Dyspnea, unspecified; R00.0 Tachycardia, unspecified

== ENCOUNTER → 2017-01-05 10:54 | Outpatient (CLI) | payer MEDICAID ==
[2016-09-13 13:03] VITALS: BMI 35.1
== END | disposition home or self-care (01) ==
LOC: D.RAD 10:54
DX: S32.591A Other specified fracture of right pubis, initial encounter for closed fracture (principal)

== ENCOUNTER 2017-01-31 17:54 | Emergency (ER) | payer MEDICAID ==
[2016-09-13 13:03] VITALS: BMI 35.1
[2017-01-31 19:07] LABS: BASOPHILS 0.2 % (0-2); EOSINOPHILS 0.4 % (0-7); HEMATOCRIT 36.7 % (36.0-48.0); HEMOGLOBIN 12.2 g/dL (12-16); IMMATURE GRANULOCYTES 0.3 % (0-5); LYMPHOCYTES 17.8 % (15-50); MCH 32.7 pg (26.0-34.0); MCHC 33.2 g/dL (31.0-37.0); MCV 98.4 fL (80.0-100.0); MEAN PLATELET VOLUME 10.6 fL (7.4-10.4); MONOCYTES 9.8 % (2-11); NEUTROPHILS 71.5 % (40-80); PLATELET COUNT 163 10x3/uL (130-400); RBC 3.73 10x6/uL (4.00-5.40); RDW 13.5 % (11.5-14.5); WBC 9.3 10x3/uL (4.8-10.8)
[2017-01-31 19:42] LABS: ALKALINE PHOSPHATASE 100 U/L (46-116); ALT (SGPT) 13 U/L (10-68); BILIRUBIN - TOTAL 0.46 mg/dL (0.2-1.3); CALC OSMOLALITY 283 mosm/kg (275-300); CARBON DIOXIDE 31.6 mmol/L (21.0-32.0); CHLORIDE - SERUM 104 mmol/L (98-107); CREATINE KINASE 33 UL (21-215); CREATININE - SERUM 0.9 mg/dL (0.6-1.3); GLUCOSE 103 mg/dL (74-106); POTASSIUM - SERUM 3.2 mmol/L (3.5-5.1); PRO BNP 764 pg/mL (0-125); PROTEIN - SERUM 6.4 g/dL (6.4-8.2); SODIUM 143 mmol/L (136-145); UREA NITROGEN 9 mg/dL (7-18); eGFR NON AFRICAN AMERICAN 68 mL/min (90-120)
[2017-01-31 19:57] LABS: APPEARANCE CLEAR (CLEAR); BILIRUBIN NEGATIVE (NEGATIVE); COLOR YELLOW (YELLOW); GLUCOSE NEGATIVE (NEGATIVE); KETONE NEGATIVE (NEGATIVE); LEUKOCYTE ESTERASE NEGATIVE (NEGATIVE); NITRITE NEGATIVE (NEGATIVE); PROTEIN NEGATIVE (NEGATIVE); SPECIFIC GRAVITY 1.015 (1.005-1.020); UROBILINOGEN NORMAL (NORMAL)
[2017-01-31 20:03] LABS: ALBUMIN 3.2 g/dL (3.4-5.0); CALCIUM 9.1 mg/dL (8.5-10.1); MAGNESIUM - SERUM 1.9 mg/dL (1.8-2.4)
[2017-01-31 20:04] LABS: TROPONIN-I < 0.017 ng/mL (0.000-0.060)
[2017-01-31 20:05] LABS: UDS - AMPHET NEGATIVE QUAL (NEGATIVE); UDS - BARB NEGATIVE QUAL (NEGATIVE); UDS - BENZO NEGATIVE QUAL (NEGATIVE); UDS - COCAINE NEGATIVE QUAL (NEGATIVE); UDS - METH NEGATIVE QUAL (NEGATIVE); UDS - OPIATE POSITIVE QUAL (NEGATIVE); UDS - PCP NEGATIVE QUAL (NEGATIVE); UDS - THC NEGATIVE QUAL (NEGATIVE)
== END 2017-01-31 21:30 | disposition home or self-care (01) ==
LOC: D.ER 17:54
PROVIDERS: Nurse Practitioner Family
DX: R10.2 Pelvic and perineal pain (principal); S32.9XXG Fracture of unspecified parts of lumbosacral spine and pelvis, subsequent encounter for fracture with delayed healing; X58.XXXD Exposure to other specified factors, subsequent encounter

== ENCOUNTER → 2017-02-08 19:16 | Outpatient (CLI) | payer MEDICAID ==
[2016-09-13 13:03] VITALS: BMI 35.1
== END | disposition home or self-care (01) ==
LOC: D.LABREF 19:16
DX: M17.12 Unilateral primary osteoarthritis, left knee (principal); Z11.8 Encounter for screening for other infectious and parasitic diseases

== ENCOUNTER 2017-02-22 10:00 | Inpatient (IN) | payer MEDICAID ==
[~2017-02-22] VITALS: Ht 154.9 cm; Wt 68.2 kg
[~2017-02-22 10:00] MED LIST changes: +ATIVAN0.5 MG PO; +K-DUR20 MEQ PO; +LASIX80 MG; +PROTONIX20 MG PO
[2017-02-22 11:38] LABS: BASOPHILS 0.2 % (0-2); EOSINOPHILS 0.5 % (0-7); HEMATOCRIT 38.2 % (36.0-48.0); HEMOGLOBIN 12.7 g/dL (12-16); IMMATURE GRANULOCYTES 0.3 % (0-5); LYMPHOCYTES 18.2 % (15-50); MCH 32.5 pg (26.0-34.0); MCHC 33.2 g/dL (31.0-37.0); MCV 97.7 fL (80.0-100.0); MEAN PLATELET VOLUME 10.3 fL (7.4-10.4); MONOCYTES 8.1 % (2-11); NEUTROPHILS 72.7 % (40-80); RBC 3.91 10x6/uL (4.00-5.40); WBC 10.1 10x3/uL (4.8-10.8)
[2017-02-22 11:42] LABS: APPEARANCE CLEAR (CLEAR); BILIRUBIN NEGATIVE (NEGATIVE); COLOR STRAW (YELLOW); GLUCOSE NEGATIVE (NEGATIVE); KETONE NEGATIVE (NEGATIVE); LEUKOCYTE ESTERASE NEGATIVE (NEGATIVE); NITRITE NEGATIVE (NEGATIVE); PLATELET COUNT 296 10x3/uL (130-400); PROTEIN NEGATIVE (NEGATIVE); SPECIFIC GRAVITY 1.015 (1.005-1.020); UROBILINOGEN NORMAL (NORMAL)
[2017-02-22 11:50] LABS: ANION GAP 13.3 mmol/L (8-16); CARBON DIOXIDE 31.6 mmol/L (21.0-32.0)
[2017-02-22 11:51] LABS: APTT 23.9 SECONDS (22.8-39.4); INR 0.98 (0.85-1.17); PROTIME 12.8 SECONDS (11.6-15.0)
[2017-02-22 11:55] LABS: POTASSIUM - SERUM 2.9 mmol/L (3.5-5.1)
[2017-02-27] MEDS ORDERED: COMBIVENT RESPIM4 GM INH (06:49)
[2017-02-27 06:54] VITALS: BP 120/57; BMI 28.4
[2017-02-27 13:25] VITALS: BP 133/85
--- NOTE | 2017-02-27 13:25 | NUR ---
RECEIVED TO ROOM 2208 FROM RECOVERY ROOM VIA BED. VSS. INCENTIVE SPIROMETER GIVEN TO PATIENT AND EXPLAINED USE. VERBALIZED UNDERSTANDING. SCDs TO BLE. BED ALARM ON. FOOD AND ICE WATER AT BEDSIDE. CALL LIGHT IN REACH. FAMILY IN ROOM. WILL CONTINUE WITH PLAN OF CARE.
[2017-02-27 13:31] VITALS: BP 133/85; Ht 154.9 cm; Wt 68.2 kg
--- NOTE | 2017-02-27 14:10 | NUR ---
STATES HER PAIN IS AT A 7 AT THIS TIME. TOOK NORCO IN ROOM BUT PATIENT AND FAMILY REQUESTED PERCOCET SO ADMINISTERED PER ORDER. FAMILY AT BEDSIDE. CALL LIGHT IN REACH.
--- NOTE | 2017-02-27 16:31 | NUR ---
TORADOL SIVP. ANCEF 1 GM IVPB. DRSG TO LEFT KNEE REINFORCED BECAUSE OF BLEEDING. SISTER IN ROOM. CALL LIGHT IN REACH.
--- NOTE | 2017-02-27 17:27 | OP ---
PATIENT NAME: JEANETH FARRELL MEDICAL RECORD: [id number] :58 LOCATION:D[facility] ADMISSION DATE:02/27/17 SURGEON: QUIQUE LOZA MD DATE OF OPERATION: 02/27/2017 PREOPERATIVE DIAGNOSIS: Severe degenerative arthritis of the left knee -- valgus arthritis. POSTOPERATIVE DIAGNOSIS: Severe degenerative arthritis of the left knee -- valgus arthritis. PROCEDURE: Left total knee arthroplasty. SURGEON: Quique Loza MD. ANESTHESIA: General. INTRAOPERATIVE COMPLICATIONS: None. 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 IMPLANTS USED: Arthrex total knee arthroplasty system, 4 tibial baseplate, 9 polyethylene insert, 4 distal femoral component and a size 29 patella. OPERATIVE SUMMARY IN DETAIL: After obtaining the appropriate preoperative orthopedic surgery consent as well as anesthetic consultation, evaluation and clearance, the patient was brought to the operating room and placed on the operating table in supine position. After general laryngeal mask was administered, tourniquet was placed about the proximal aspect of the left lower extremity. Left lower extremity was then prepped and draped in routine sterile fashion. Leg was elevated, exsanguinated and tourniquet was inflated to 350 mmHg. Midline incision was taken down for paramedian arthrotomy. Patella was everted and soft tissue excision was done in the usual fashion. Intramedullary guide hole was created for intramedullary guided cuts. The distal femur was cut. This was followed by complete exposure of the proximal tibia and again, the tibia was cut using intramedullary guidance. Appropriate measurements were taken. Chamfer cuts were made on the distal femur. Trials were put into place, taken through range of motion and found to be excellent and stable in all planes. Final distal femoral and proximal tibial preparations were made. This was followed by resection of the arthritic surface of the patella and it was prepared for size 29. At this point, the knee was irrigated with pulsatile lavage irrigation. After copious pulsatile lavage irrigation, bone ends were dried and the final components were cemented into place. All excess cement was removed. After it was allowed to harden, the knee was taken through range of motion and found to be stable in all planes with good patellar tracking. The paramedian arthrotomy was closed with #2 Ethibond followed by #1 Vicryl, 2-0 Vicryl and skin onesimo. Sterile dressings were applied. Tourniquet was deflated. The patient was awakened, taken to recovery in stable condition. All final needle and sponge counts were correct. TRANSINT:[id number] Voice Confirmation ID: [id number] DOCUMENT ID: [id number] OPERATIVE REPORT [id number] JEANETH FARRELL MD, QUIQUE RAMOS at 1727 CC: [id number] DICTATION DATE: 02/27/17 1219 BIT TAPPER: 02/27/17 1515 ADM IN [place] [id number] [place] [address]
--- NOTE | 2017-02-27 18:45 | NUR ---
PERCOCET PO PER C/O PAIN. NO CHANGES IN INITIAL ASSESSMENT. CALL LIGHT IN REACH. BED ALARM ON. SCDs TO RLE. CALL LIGHT IN REACH. WILL CONTINUE WITH PLAN OF CARE.
[2017-02-27 19:00] VITALS: BP 144/66
--- NOTE | 2017-02-27 19:41 | NUR ---
REC'D.IN BED LEFT LEG IN CPM.DRSG. INTACT TO LEFT KNEE FOOT PINK AND WARM GOOD PEDAL PULSE.STATES LOWER EXT. STILL LITTLE NUMB. WILL CONTINUE TO MONITOR FOR ANY CHGES IN NEUROVASCULAR STATUS AND FOLLOW CURRENT PLAN OF CARE.
[2017-02-28] VITALS: BP 132/97
[2017-02-28 03:45] LABS: HEMATOCRIT 24.9 % (36.0-48.0); HEMOGLOBIN 8.1 g/dL (12-16); MCH 32.3 pg (26.0-34.0); MCHC 32.5 g/dL (31.0-37.0); MCV 99.2 fL (80.0-100.0); MEAN PLATELET VOLUME 10.1 fL (7.4-10.4); RBC 2.51 10x6/uL (4.00-5.40); RDW 13.2 % (11.5-14.5); WBC 12.9 10x3/uL (4.8-10.8)
[2017-02-28 04:00] VITALS: BP 137/57
--- NOTE | 2017-02-28 08:12 | NUR ---
SEEN THIS AM. COMPLAINTS OF PAIN TO LEFT KNEE-CURRENTLY IN CPM MACHINE. ABLE TO MOVE TOES FREELY-PINK AND WARM. BRUISING NOTED TO RIGHT THIGH AND LEFT ARM-LEFT GOOT SWOLLEN 2+. TORADOL GIVEN FOR PAIN. SCD X 1 NOTED RIGHT CALF. FAMILY AT BEDSIDE. CALL LIGHT IN REACH. BED ALARM ON FOR SAFETY
[2017-02-28 08:42] VITALS: BP 134/58
--- NOTE | 2017-02-28 09:48 | NUR ---
Patient Name: JEANETH FARRELL Admission Status: Elective Accout number: [id number] Admission Date: 02-27-2017 : 1960 Admission Diagnosis: Attending: SATISH Current LOS: 1 Anticipated DC Date: Planned Disposition: Home Primary Insurance: [place] [employer] [facility] Discharge Planning Comments: CM met with patient and daughter (Mikhail Acevedo) to assess discharge planning needs. Patient lives at home with her daughter and her and plans to return there at discharge with [facility] OP PT. Patient has 4 stairs to go up to enter in her house. Patient has a bed side commode, walker, and a shower chair. CM will continue to follow and assist with discharge planning needs. PCP: [facility] Mikhail Layton (daughter) [phone] Rn Radiation: Melina Ingram * Is the patient Alert and Oriented? Yes 0 * How many steps to enter\exit or inside your home? 4 0 * PCP CHRIS 0 * Pharmacy [facility] 0 * Preadmission Environment Home with Family 0 * ADLs Independent 0 * Equipment Bedside Commode Shower Chair Walker 0 * List name and contact numbers for known caregivers / representatives who currently or will assist patient after discharge: MIKHAIL LAYTON (DAUGHTER) 0 * Community resources currently utilized None 0 * Additional services required to return to the preadmission environment? Yes 0 * Can the patient safely return to the preadmission environment? Yes 0 * Has this patient been hospitalized within the prior 30 days at any hospital? No 0 Grand Total: 0
--- NOTE | 2017-02-28 09:57 | NUR ---
Patient's OP PT appointment set up for Mar 03 @ 10.:45am
--- NOTE | 2017-02-28 11:15 | NUR ---
REPORT RECIEVED ASSUMED CARE. PATIENT IN BED WITH IV INTACT. NO COMPLAINTS A THIS TIME. CALL LIGHT WITHIN REACH.
--- NOTE | 2017-02-28 12:00 | NUR ---
PATIENT SITTING ON BED. STATED SHE WANTS TO GO WALK. EXPLAINED TO PATIENT SHE COULD WALK IN THE HALLWAYS, NOT ALLOWED TO GO OUT AND SMOKE. VERBALIZED UNDERSTANDING. CALL LIGHT WITHIN REACH. IV INTACT. FAMILY AT SIDE.
[2017-02-28 14:10] VITALS: BP 134/79
--- NOTE | 2017-02-28 14:10 | NUR ---
PATIENT TO OR.
--- NOTE | 2017-02-28 16:40 | NUR ---
BLOOD COMPLETE AT THIS TIME. VS STABLE. NO COMPLAINTS. FAMILY AT BEDSIDE. CALL LIGHT WITHIN REACH.
--- NOTE | 2017-02-28 18:55 | NUR ---
PATIENT IN BED WITH IV INTACT. NO COMPLAINTS AT THIS TIME. FAMILY AT BEDSIDE. CPM ON. CALL LIGHT WITHIN REACH.
[2017-02-28 19:00] VITALS: BP 109/52
[2017-03-01] VITALS: BP 114/51
--- NOTE | 2017-03-01 02:00 | NUR ---
PT IN BED WITH NO DISTRESS. RESPIRATIONS EVEN AND UNLABORED. SIDE RAILS X 2. BED LOW. CALL LIGHT IN REACH.
[2017-03-01 04:00] VITALS: BP 96/55
[2017-03-01 05:41] LABS: HEMATOCRIT 25.6 % (36.0-48.0); HEMOGLOBIN 8.4 g/dL (12-16); MCH 31.9 pg (26.0-34.0); MCHC 32.8 g/dL (31.0-37.0); MCV 97.3 fL (80.0-100.0); MEAN PLATELET VOLUME 10.3 fL (7.4-10.4); RBC 2.63 10x6/uL (4.00-5.40); RDW 15.8 % (11.5-14.5); WBC 12.2 10x3/uL (4.8-10.8)
--- NOTE | 2017-03-01 07:20 | NUR ---
REPORT RECEIVED FROM DIRECTOR SEARCH MARKETING STRATEGIES NURSE. CALL LIGHT IN REACH.
--- NOTE | 2017-03-01 08:05 | NUR ---
ASSESSMENT COMPLETED. PERCOCET PO WITH AM MEDS ADMINISTERED. ICE TO LEFT KNEE. BED ALARM ON. SCDs TO BLE. CALL LIGHT IN REACH. WILL CONTINUE WITH PLAN OF CARE.
[2017-03-01 08:38] VITALS: BP 101/42
--- NOTE | 2017-03-01 09:30 | NUR ---
PATIENT UP AMBULATING IN HALLWAY WITH PHYSICAL THERAPY. NO SIGNS OF DISTRESS NOTED.
--- NOTE | 2017-03-01 10:47 | NUR ---
IN CHAIR RESTING WITH EYES CLOSED. RESP EVEN AND UNLABORED. CALL LIGHT IN REACH.
--- NOTE | 2017-03-01 12:05 | NUR ---
PERCOCET PO PER C/O PAIN OF 7 TO LEFT KNEE. DAUGHTER AND GRANDDAUGHTER IN ROOM AT THIS ITME. CALL LIGHT IN REACH.
[2017-03-01 12:57] VITALS: BP 99/48
--- NOTE | 2017-03-01 14:30 | NUR ---
NORCO AND TORADOL FOR PAIN. DAUGHTERS IN ROOM. CALL LIGHT IN REACH.
[2017-03-01 16:20] VITALS: BP 119/69
--- NOTE | 2017-03-01 16:54 | NUR ---
TO BR AND BACK TO BED WITH ASSISTANCE FROM TELEPHONE INSTRUMENT SUPERVISOR. PERCOCET PO. CALL LIGHT IN REACH.,
--- NOTE | 2017-03-01 18:00 | NUR ---
CPM PLACED TO LLE. ICE PACK REFILLED. SCD TO RLE. BED ALARM ON. NO OTHER CHANGES IN INITIAL ASSESSMENT. CALL LIGHT IN REACH. WILL CONTINUE WITH PLAN OF CARE.
--- NOTE | 2017-03-01 18:21 | NUR ---
NO CHANGES IN INITIAL ASSESSMENT. SCDs TO BLE. CALL LIGHT IN REACH. WILL CONTINUE WITH PLAN OF CARE.
[2017-03-01 20:00] VITALS: BP 114/51
[2017-03-02] VITALS: BP 129/53
[2017-03-02 04:00] VITALS: BP 106/55
--- NOTE | 2017-03-02 07:29 | NUR ---
PT RESTING WITH EYES CLOSED AND NO VISIBLE SIGNS OF DISTRESS. BED IN LOWEST POSITION AND CALL LIGHT WITHIN REACH.
--- NOTE | 2017-03-02 08:00 | NUR ---
PATIENT ALERT IN HIGH PEDERSEN POSITION WITH GUEST AT BEDSIDE. NO SIGNS OF DISTRESS NOTED. SIDE RAILS UP X2. BED IN LOW POSITION. CALL LIGHT IN REACH.
[2017-03-02 08:26] VITALS: BP 125/65
[2017-03-02 08:32] LABS: BASOPHILS 0.1 % (0-2); EOSINOPHILS 0.6 % (0-7); HEMATOCRIT 26.1 % (36.0-48.0); HEMOGLOBIN 8.5 g/dL (12-16); LYMPHOCYTES 18.5 % (15-50); MCHC 32.6 g/dL (31.0-37.0); MCV 98.1 fL (80.0-100.0); MEAN PLATELET VOLUME 9.7 fL (7.4-10.4); MONOCYTES 10.4 % (2-11); NEUTROPHILS 69.4 % (40-80); PLATELET COUNT 158 10x3/uL (130-400); RBC 2.66 10x6/uL (4.00-5.40); RDW 15.5 % (11.5-14.5); WBC 10.6 10x3/uL (4.8-10.8)
[2017-03-02 08:57] LABS: CREATINE KINASE 66 UL (21-215); TROPONIN-I < 0.017 ng/mL (0.000-0.060)
[2017-03-02 08:58] LABS: ANION GAP 8.9 mmol/L (8-16); CALCIUM 8.6 mg/dL (8.5-10.1); CREATININE - SERUM 0.9 mg/dL (0.6-1.3); POTASSIUM - SERUM 3.9 mmol/L (3.5-5.1)
[2017-03-02 12:57] VITALS: BP 130/62
[2017-03-02 16:11] VITALS: BP 116/56
[2017-03-02 17:22] LABS: CREATINE KINASE 59 UL (21-215)
[2017-03-02 17:24] LABS: TROPONIN-I < 0.017 ng/mL (0.000-0.060)
[2017-03-02 20:00] VITALS: BP 117/54
[2017-03-02 22:41] LABS: CREATINE KINASE 57 UL (21-215); TROPONIN-I < 0.017 ng/mL (0.000-0.060)
[2017-03-03] VITALS: BP 140/61
--- NOTE | 2017-03-03 | NUR ---
PT SLEEPING. RESP EVEN, UNLABORED. NO DISTRESS NOTED. CONTINUE STAFF ANESTHESIOLOGIST'S PLAN OF CARE.
[2017-03-03 04:00] VITALS: BP 124/61
--- NOTE | 2017-03-03 07:21 | NUR ---
LYING IN BED,WITHOUT DISTRESS.RESTING EYES CLOSED.RESP NON LABORED.CALL LIGHT IN REACH
[2017-03-03 08:54] VITALS: BP 102/46
[2017-03-03 09:07] LABS: HEMOGLOBIN 8.9 g/dL (12-16)
[2017-03-03 13:03] VITALS: BP 147/49
[2017-03-03 20:00] VITALS: BP 114/49
--- NOTE | 2017-03-03 20:30 | NUR ---
SPOKE WITH , HE SAID DO NOT DO THE CPM TONIGHT.
--- NOTE | 2017-03-03 21:30 | NUR ---
CHANGED DRESSING TO LEFT KNEE
[2017-03-04] VITALS (7 sets, daily range): BP systolic 91–120; BP diastolic 46–61
--- NOTE | 2017-03-04 07:38 | NUR ---
PATIENT RESTING IN HER BED. PATIENT IS AWAKE, ALERT, AND ORIENTED X4. SLEEPING AT PATIENT'S BEDSIDE. PATIENT DENIES ANY NEEDS AT PRESENT TIME. CALL LIGHT IN PATIENT'S REACH. WILL MONITOR PATIENT.
--- NOTE | 2017-03-04 09:36 | NUR ---
PATIENT SITTING UP IN A CHAIR. SCHEDULED MORNING MEDICATIONS GIVEN TO PATIENT. PATIENT'S FAMILY IN THE ROOM. CALL LIGHT IN PATIENT'S REACH. PATIENT DENIES NEEDS AT PRESENT TIME. WILL MONITOR.
[2017-03-04 11:42] LABS: BASOPHILS 0.2 % (0-2); EOSINOPHILS 1.5 % (0-7); HEMATOCRIT 24.6 % (36.0-48.0); IMMATURE GRANULOCYTES 0.7 % (0-5); LYMPHOCYTES 14.7 % (15-50); MCH 32.3 pg (26.0-34.0); MCHC 32.5 g/dL (31.0-37.0); MCV 99.2 fL (80.0-100.0); MEAN PLATELET VOLUME 9.5 fL (7.4-10.4); MONOCYTES 8.8 % (2-11); NEUTROPHILS 74.1 % (40-80); PLATELET COUNT 185 10x3/uL (130-400); RBC 2.48 10x6/uL (4.00-5.40); RDW 14.7 % (11.5-14.5); WBC 11.3 10x3/uL (4.8-10.8)
[2017-03-04 11:55] LABS: ALBUMIN 2.5 g/dL (3.4-5.0); ANION GAP 8.2 mmol/L (8-16); BILIRUBIN - TOTAL 0.47 mg/dL (0.2-1.3); CALCIUM 8.4 mg/dL (8.5-10.1); CARBON DIOXIDE 30.1 mmol/L (21.0-32.0); CREATININE - SERUM 0.9 mg/dL (0.6-1.3); POTASSIUM - SERUM 4.3 mmol/L (3.5-5.1); PROTEIN - SERUM 6.2 g/dL (6.4-8.2)
--- NOTE | 2017-03-04 20:54 | NUR ---
REC'D SITTING UP IN BED. ALERT AND ORIENTED X4. REPORTED PAIN 8/. WILL ADMIN PM/AM MEDS PRESCRIBED. LEFT LOWER LEG WAS DRAINING FROM A SKIN TEAR SITE. REPLACED DRESSING ON IT. CHANGED LINENS. DENIED FURTHER NEEDS AT THIS TIME. INSTRUCTED TO CALL. VERBALIZED UNDERSTANDING. BED LOW, LOCKED, CALL LIGHT IN REACH.
[2017-03-05 04:02] VITALS: BP 110/55
--- NOTE | 2017-03-05 08:05 | NUR ---
PATIENT RESTING IN HER BED. AWAKE, ALERT, AND ORIENTED X4. SCHEDULED MORNING MEDICATIONS GIVEN TO PATIENT. PATIENT DENIES ANY NEEDS AT PRESENT TIME. CALL LIGHT IN PATIENT'S REACH. WILL MONITOR.
[2017-03-05 08:32] VITALS: BP 96/43
[2017-03-05 08:52] LABS: HEMATOCRIT 24.8 % (36.0-48.0); HEMOGLOBIN 7.9 g/dL (12-16)
--- NOTE | 2017-03-05 09:45 | NUR ---
PATIENT COMPLAINS OF PAIN IN HER LEFT KNEE. PATIENT RATES HER PAIN LEVEL AN "8" ON A 0-10 SCALE. PRN PERCOCET GIEVN TO PATIENT FOR PAIN. WILL MONITOR PATIENT. CALL LIGHT IN PATIENT'S REACH.
[2017-03-05 11:56] VITALS: BP 105/51
--- NOTE | 2017-03-05 12:05 | NUR ---
FIRST UNIT OF PRBC'S STARTED. VSS. AFEBRILE. DONOR UNIT NUMBER [id number]. PATIENT DENIES ANY NEEDS. CALL LIGHT IN PATIENT'S REACH. WILL MONITOR PATIENT.
--- NOTE | 2017-03-05 14:55 | NUR ---
SECOND UNIT OF PRBC'S STARTED. DONOR UNIT NUMBER [phone]. FAMILY AT PATIENT'S BEDSIDE. CALL LIGHT IN PATIENT'S REACH. WILL MONITOR PATIENT.
[2017-03-05 16:42] VITALS: BP 98/44
--- NOTE | 2017-03-05 20:26 | NUR ---
RESTING QUIETLY WITH EYES CLOSED. NO SIGNS OF DISTRESS NOTED. CPM TO LEFT LEG.
[2017-03-05 21:18] VITALS: BP 118/70
--- NOTE | 2017-03-05 22:57 | NUR ---
PATIENT IS AWAKE, ALERT AND ORIENTED X'S 4. PATIENT IS PLAYING ON HER TABLET. SHE DENIES NEEDS AT THIS TIME. RATED HER PAIN IN HER BACK AND LEFT HIP A 7/10. IN RECLINER. BOTH DENY NEEDS.
[2017-03-06] VITALS: BP 112/52
--- NOTE | 2017-03-06 01:59 | NUR ---
PATIENT PUSHED THE CALL LIGHT AND REQUESTED A PERCOCET. SHE SAID HER LEFT KNEE WOKE HER UP THROBBING IN PAIN. SHE HELD HER HAND ON THE LATERAL SIDE OF HER LEFT KNEE. FACE GRIMMACED. ADMINISTERED PERCOCET.
[2017-03-06 04:00] VITALS: BP 109/52
[2017-03-06 05:48] LABS: HEMATOCRIT 28.9 % (36.0-48.0)
[2017-03-06 06:00] LABS: HEMOGLOBIN 9.5 g/dL (12-16)
--- NOTE | 2017-03-06 06:00 | NUR ---
APPLIED CPM TO LEFT LEG.
--- NOTE | 2017-03-06 07:25 | NUR ---
PATIENT RECEIVED ALERT IN HIGH PEDERSEN POSITION. NO SIGNS OF DISTRESS NOTED. LEFT LEG IN CPM. TOLERATING WELL. DENIES NEEDS. SIDE RAILS UP X2. BED IN LOW POSITION. CALL LIGHT IN REACH. FAMILY AT BEDSIDE.
[2017-03-06 08:38] VITALS: BP 84/45
[2017-03-06] MEDS ORDERED: PERCOCET 10/3251 TA1 PO (08:58)
--- NOTE | 2017-03-06 09:04 | NUR ---
PATIENT ALERT IN BED. NO SIGNS OF DISTRESS NOTED. SCHEDULED MEDICATION ADMINISTERED. DENIES NEEDS. FAMILY PRESENT. SIDE RAILS UP X2. BED IN LOW POSITION. CALL LIGHT IN REACH.
--- NOTE | 2017-03-06 10:02 | NUR ---
PATIENT ALERT IN BED. NO SIGNS OF DISTRESS NOTED. C/O PAIN 01/30. PERCOCET PER PRN ORDER. NO FURTHER NEEDS VOICED. SIDE RAILS UP X2. BED IN LOW POSITION. CALL LIGHT IN REACH.
--- NOTE | 2017-03-06 11:15 | NUR ---
PATIENT IN MID PEDERSEN POSITION RESTING WITH EYES CLOSED. RESPIRATIONS EVEN AND UNLABORED. SIDE RAILS UP X2. BED IN LOW POSITION. CALL LIGHT IN REACH.
[2017-03-06] MEDS ORDERED: ELIQUIS2.5 MG PO (13:07)
[2017-03-06 13:30] VITALS: BP 123/49
--- NOTE | 2017-03-06 15:55 | NUR ---
PATIENT SITTING UP IN CHAIR RESTING WITH EYES CLOSED. RESPIRATIONS EVEN AND UNLABORED. CALL LIGHT IN REACH. FAMILY PRESENT.
[2017-03-06 17:05] VITALS: BP 117/50
--- NOTE | 2017-03-06 18:50 | NUR ---
ASSISTED BACK TO BED AND POSITIONED FOR COMFORT. CPM IN PLACE TO LEFT LEG. ICE PACK IN PLACE. PERCOCET GIVEN PER PRN ORDER. SIDE RAILS UP X2. BED IN LOW POSITION. CALL LIGHT IN REACH.
[2017-03-06 20:00] VITALS: BP 126/52
[2017-03-07] VITALS: BP 100/46
[2017-03-07 04:00] VITALS: BP 114/74
--- NOTE | 2017-03-07 05:30 | NUR ---
PATIENT BACK IN BED AFTER GOING TO THE BATHROOM TO VOID (WITH STAND-BY ASSIST). CPM APPLIED TO LEFT LEG. TURNED UP THE ANGLE ON THE CPM BY 10, NOW AT 80 DEGREES. PATIENT TOLERATED WELL. BED IN LOWEST POSITION, CALL LIGHT IN REACH. IN RECLINER.
[2017-03-07 06:00] LABS: HEMATOCRIT 29.5 % (36.0-48.0); HEMOGLOBIN 9.7 g/dL (12-16)
--- NOTE | 2017-03-07 07:00 | NUR ---
PATIENT RECEIVED ALERT IN MID PEDERSEN POSITION. NO SIGNS OF DISTRESS NOTED. CPM TO LEFT LEG. SIDE RAILS UP X2. BED IN LOW POSITION. CALL LIGHT IN REACH. FAMILY PRESENT. DENIES NEEDS.
[2017-03-07 09:23] VITALS: BP 119/60
--- NOTE | 2017-03-07 12:05 | NUR ---
D/C TEACHING PROVIDED TO PATIENT AND SISTER. STATES UNDERSTANDING. IV TO RIGHT AC D/C WITH CATH TIP INTACT. SITE COVERED WITH GAUZE AND BANDAID. WELL TOLERATED.
--- NOTE | 2017-03-07 12:09 | NUR ---
PATIENT D/C HOME WITH FAMILY. TRANSFERRED DOWNSTAIRS VIA WHEELCHAIR WITH VOLUNTEER.
--- NOTE | 2017-03-14 15:47 | EC ---
PATIENT:JEANETH FARRELL DATE OF SERVICE: 02/27/17 SEX: F MEDICAL RECORD: [id number] DATE OF : 58 LOCATION:D.MS Jorge AGE OF PATIENT: 57 ADMISSION DATE: 02/27/17 REFERRING PHYSICIAN: INTERPRETING PHYSICIAN: GENNY FIGUEROA MD ECHOCARDIOGRAM REPORT ECHO CHARGES 4 ECHO COMPLETE CLINICAL DIAGNOSIS: HTN ECHOCARDIOGRAPHIC MEASUREMENTS (adult normal given) AC root (d.<3.7cm) 2.9 cm LV Septum d (<1.2 cm> 1.2 cm Valve Excursion 1.6 cm LV Septum (systole) 1.6 cm Left Atria (s.<4.0cm> 3.1 cm LVPW d(<1.2cm) 1.2 cm RV (d.<2.3cm) 2.1 cm LVPW (sytole) 1.7 cm LV diastole(<5.6CM) 5.2 cm MV E-F(>70mm/sec) cm LV systole 2.8 cm LVOT Diameter 1.7 cm MV exc.(>10mm) cm Est.ejection fraction (50-75%) % Pericardial Effusion N DOPPLER: LVIT cm/sec A 92.0 cm/sec E 133.0 cm/sec LA cm/sec RVSP 43.0 mmHg LVOT 166 cm/sec AOP1/2T m/s Asc. Ao 204 cm/sec RVOT 109 cm/sec RA cm/sec PA 145 cm/sec AV Gradient Peak 17.0 mmHg AV Mean 8.5 mmHg AV Area 1.5 cm MV Gradient Peak 9.6 mmHg MV Mean 3.8 mmHg MV Area cm COMMENTS: Rd Project Manager: Karyna WINSTON ALICIA Coin Purse Framer: 4 Dr. Figueroa TAPE# PACS DATE OF SERVICE: 03/02/2017 ECHOCARDIOGRAPHIC REPORT. In conclusion, the patient has good quality echocardiographic imaging. The left ventricle is normal to mildly hyperdynamic to 65%-70% ejection fraction. Inflow characteristics indicate a normal inflow pattern. The mitral valve is structurally normal with moderate mitral regurgitation. The aortic valve appears to be normal trileaflet structure, normal function with no evidence of significant stenosis. The pericardium is normal. The tricuspid valve has mild ECHOCARDIOGRAM REPORT [id number] JEANETH FARRELL tricuspid regurgitation with mildly elevated PA pressures. The right atrium appears to be normal size and function. IVC was shown to be normal size; however, did not collapse with inspiration, indicating possibly mildly elevated central venous pressures. TRANSINT:[id number] Voice Confirmation ID: [id number] DOCUMENT ID: [id number] 03/10/2017 Edited to correct date of service, dmm. GENNY FIGUEROA MD at 1547 CC: [id number] DICTATION DATE: 03/03/17 1411 CONCRETE MIXING PLANT LABORER: 03/03/17 2115 DIS IN 03/07/[address] [facility] [address] [facility] [place] [address]
== END 2017-03-07 12:09 | disposition home or self-care (01) | DRG 470 ==
LOC: D.SDCHOLD 02-27 06:55 → D.MS 02-27 06:55 → D.SDCHOLD 02-27 09:30 → D.MS 02-27 11:51 → D.SDCHOLD 02-27 18:25 → D.MS 03-07 12:09
PROVIDERS: Internal Medicine Cardiovascular Disease; ADMIT Orthopaedic Surgery
PROC: 0SRD0J9 Replacement of Left Knee Joint with Synthetic Substitute, Cemented, Open Approach (ICD-10-PCS; principal; 2017-02-27 09:30)
DX: M17.12 Unilateral primary osteoarthritis, left knee (principal); D62 Acute posthemorrhagic anemia; G90.50 Complex regional pain syndrome I, unspecified; I20.9 Angina pectoris, unspecified; Z87.891 Personal history of nicotine dependence

== ENCOUNTER 2017-04-13 09:05 | Emergency (ER) | payer MEDICAID ==
[2017-02-27 13:31] VITALS: BMI 28.4
[~2017-04-13 09:05] MED LIST changes: +COMBIVENT RESPIM4 GM INH; +ELIQUIS2.5 MG PO; +PERCOCET 10/3251 TA1 PO
[2017-04-13 10:23] LABS: BASOPHILS 0.2 % (0-2); HEMATOCRIT 44.9 % (36.0-48.0); IMMATURE GRANULOCYTES 0.2 % (0-5); MCH 31.4 pg (26.0-34.0); MCHC 33.4 g/dL (31.0-37.0); MCV 94.1 fL (80.0-100.0); MEAN PLATELET VOLUME 10.5 fL (7.4-10.4); MONOCYTES 11.4 % (2-11); NEUTROPHILS 71.2 % (40-80); PLATELET COUNT 202 10x3/uL (130-400); RBC 4.77 10x6/uL (4.00-5.40); RDW 13.5 % (11.5-14.5); WBC 8.9 10x3/uL (4.8-10.8)
[2017-04-13 10:43] LABS: ALBUMIN 3.9 g/dL (3.4-5.0); ANION GAP 13.1 mmol/L (8-16); BILIRUBIN - TOTAL 0.46 mg/dL (0.2-1.3); CALCIUM 10.3 mg/dL (8.5-10.1); CARBON DIOXIDE 32.4 mmol/L (21.0-32.0); POTASSIUM - SERUM 3.5 mmol/L (3.5-5.1); PROTEIN - SERUM 8.3 g/dL (6.4-8.2)
[2017-04-13 11:32] LABS: APPEARANCE CLOUDY (CLEAR); BILIRUBIN NEGATIVE (NEGATIVE); COLOR DK YELLOW (YELLOW); GLUCOSE NEGATIVE (NEGATIVE); KETONE SMALL mg/dL (NEGATIVE); LEUKOCYTE ESTERASE 2+ (NEGATIVE); NITRITE NEGATIVE (NEGATIVE); PROTEIN 1+ mg/dL (NEGATIVE); RED CELLS - URINE RARE /hpf (0-5); SPECIFIC GRAVITY 1.025 (1.005-1.020)
[2017-04-13 11:33] LABS: BACTERIA MODERATE /hpf (NONE SEEN); MUCUS >1+ /lpf (NONE SEEN); TALC POWDER CRYSTALS OCC /hpf (NONE SEEN); WAXY CAST OCC /lpf (NONE SEEN); YEAST <1+ /hpf (NONE SEEN)
== END 2017-04-13 12:35 | disposition home or self-care (01) ==
LOC: D.ER 09:05
PROVIDERS: Nurse Practitioner Acute Care
DX: N10 Acute pyelonephritis (principal); B37.3 Candidiasis of vulva and vagina

== ENCOUNTER 2017-05-26 13:31 | Emergency (ER) | payer MEDICAID ==
[2017-02-27 13:31] VITALS: BMI 28.4
== END 2017-05-26 18:10 | disposition home or self-care (01) ==
LOC: D.ER 13:31
DX: G90.522 Complex regional pain syndrome I of left lower limb (principal); M79.662 Pain in left lower leg

== ENCOUNTER → 2017-06-14 10:18 | Day surgery (SDC) | payer MEDICAID ==
[~2017-06-14] VITALS: Ht 154.9 cm; Wt 63.6 kg
[~2017-06-14 10:18] MED LIST changes: +NEURONTIN 300300 MG PO; +OXYCONTIN10 MG PO
[2017-06-14 11:35] VITALS: BP 130/69; Ht 154.9 cm; Wt 63.6 kg
== END | disposition home or self-care (01) ==
LOC: D.OPS 10:00 → D.PAN 13:00
DX: M79.605 Pain in left leg (principal); Z96.652 Presence of left artificial knee joint

== ENCOUNTER 2017-06-28 11:31 | Day surgery (SDC) | payer MEDICAID ==
[~2017-06-28] VITALS: Ht 154.9 cm; Wt 63.6 kg
[~2017-06-28 11:31] MED LIST changes: -NEURONTIN 300300 MG PO; -OXYCONTIN10 MG PO
[2017-06-28 13:44] VITALS: BP 132/71; Ht 154.9 cm; Wt 63.6 kg
--- NOTE | 2017-06-29 12:06 | PRO ---
PATIENT:JEANETH ZAMBRANO MEDICAL RECORD: [id number] : 58 LOCATION:MIKIE ADMISSION DATE: 06/28/17 PROCEDURE PERFORMED BY: ZI FELIPE MD DATE OF PROCEDURE: 06/28/2017 Ms. Zambrano is a 57-year-old female, who presents today with left leg radiculopathy and referred by Dr. Aman Edwards. The patient has significant medical history for some cardiovascular disease and has currently had stent placements by Dr. Aldrich. It should be noted that the patient is currently on no anticoagulation therapy at this time. Results from MRI obtained from [facility] reveals the patient has spinal stenosis at L4-L5 and L5-S1. MRI was reviewed with the patient. The patient's symptoms are left leg radiculopathy about the L4-L5 distribution. Discussed lumbar epidural steroid injection with the patient inclusive of risks and benefits, risk being bleeding, infection, and damage to the underlying structures. The patient concurs and elects to proceed with the procedure even after discussion of risks and benefits. The patient was placed in a sitting position, Betadine prepped and draped. 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 After skin wheal was raised at the L4-5 interspace, a 17-gauge Tuohy needle was introduced under sterile conditions in the L4-L5 interspace and epidural space was located with [id number] technique. A solution of 6 mL of 3 mL of 0.25% bupivacaine along with 2 mL of sterile saline, and 1 mL of 80 mg Depo-Medrol was thus instilled in the epidural space. The patient tolerated the procedure well. The patient was monitored with pulse ox continuously during the procedure. The patient is to return in 1 week for followup for a lumbar epidural steroid injection. TRANSINT:[id number] Voice Confirmation ID: [id number] DOCUMENT ID: [id number] ZI FELIPE MD at 1206 CC: [id number] DICTATION DATE: 06/28/17 1432 CONSUMER STUDIES PROFESSOR: 06/29/[address] [facility] 06/28/17 [place] [address]
== END 2017-06-28 14:40 | disposition home or self-care (01) ==
LOC: D.OPS 11:31
DX: M48.07 Spinal stenosis, lumbosacral region (principal); M54.17 Radiculopathy, lumbosacral region; G90.50 Complex regional pain syndrome I, unspecified; Z01.812 Encounter for preprocedural laboratory examination

== ENCOUNTER 2017-07-05 13:41 | Inpatient (IN) | payer MEDICAID ==
[~2017-07-05] VITALS: Ht 154.9 cm; Wt 63.6 kg
[2017-07-05 14:06] VITALS: BP 143/87; BMI 26.5
--- NOTE | 2017-07-05 14:21 | NUR ---
1405 DR. FELIPE ROUNDS ON PT.
[2017-07-05] MEDS ORDERED: NEURONTIN 300300 MG PO (14:32)
--- NOTE | 2017-07-05 15:16 | NUR ---
1500 DR. FELIPE HERE PERMISSION FOR EPIDURAL GIVEN. [address] FELIPE. PT. TOLERATED WITHOUT PROBLEMS. HR 77, RR 20 PULSE RATE 99 BP 142/72 1518 138/78 77 18 99% Ar
--- NOTE | 2017-07-05 15:31 | NUR ---
1531 REPORT PHONED TO YASIR WADDELL RN
--- NOTE | 2017-07-05 15:44 | NUR ---
1544 OXYCODONE 5MG PO GIVEN FOR PAIN RATED 8/10 IN WRIST. TO 2211 BY VASUER.
--- NOTE | 2017-07-05 19:55 | NUR ---
RECIEVED SHIFT REPORT. PT IS LYING IN BED. ALERT AND ORIENTED AND ABLE TO VERBALIZE NEEDS. IV IS PATENT AND FLUIDS ARE RUNNING PER ORDER. PT REQUIRES SOME ASSISTANCE TURNING IN BED FOR COMFORT AND SKIN CARE. PT STATES PAIN IS 6/10, BUT ONLY TO LEFT WRIST. PT STATES NO PAIN TO BACK OR LEGS. NO NEEDS ARE VERBALIZED AT THIS TIME. WILL CONTINUE TO MONITOR. SIDE RAILS ARE UP X 2. BED IS IN LOWEST POSITION. BED ALARM IS ON FOR SAFETY. CALL LIGHT IS WITHIN REACH.
--- NOTE | 2017-07-05 20:36 | NUR ---
SHIFT ASSESSMENT COMPLETED. NIGHT MEDS GIVEN WITH NO PROBLEMS. NO NEEDS ARE VOICED. WILL MONITOR. SIDE RAILS X 2. BED LOW. BED ALARM ON. CALL LIGHT IN REACH.
[2017-07-05 20:44] VITALS: BP 143/87; Ht 154.9 cm; Wt 63.6 kg
[2017-07-05 23:07] VITALS: BP 131/75
[2017-07-06 05:00] VITALS: BP 87/44
--- NOTE | 2017-07-06 07:45 | NUR ---
SPOKE WITH DR SRIVASTAVA AND PT PAIN MED ORALLY WAS APPROVED BY HIM TO BE GIVEN, PAIN MED WAS HELD THROUGH NIGHT DUE TO HYPOTENSION AND PT ON EPIDURAL. NO OTHER NEEDS AT THIS TIME, CONTINUE WITH PLAN OF CARE
--- NOTE | 2017-07-06 08:00 | NUR ---
LYING IN BED,WITHOUT DISTRESS.CALL LIGHT IN REACH
[2017-07-06 08:33] VITALS: BP 121/54
[2017-07-06 12:21] VITALS: BP 120/58
--- NOTE | 2017-07-06 12:23 | PRO ---
PATIENT:JEANETH ZAMBRANO MEDICAL RECORD: [id number] : 58 LOCATION:D.MS [facility]2211 ADMISSION DATE: 07/05/17 PROCEDURE PERFORMED BY: ZI FELIPE MD DATE OF PROCEDURE: 07/05/2017 Ms. Zambrano is a 57-year-old female who presents to our service referred by Dr. Aman Edwards with left leg and knee pain. The patient has a presumed diagnosis of RSD as per Dr. Edwards. The patient was known by this service and seen last week and was given an epidural steroid injection. The patient relates that it significantly decreased her pain in the left lower extremity from an 8 down to about a 2-3. The patient relates, however, that after discharge and local anesthetic wearing off within 3-4 hours that the pain had returned. The patient was seen by Dr. Edwards at clinic yesterday. The patient was referred back to the anesthesia pain service to see if the patient could have a continuous epidural admission and epidural control the pain for 2-3 days to see if we could ameliorate or terminate the current bout of RSD. The patient had total knee arthroplasty by Dr. Aman Edwards on the left side. It should be noticed that the patient presents today with pain at 10/10. The patient relates that her leg is cool on the left side, has hyperesthesia and extremely painful. On examination, confirmed the extremity was cooler to touch on the right. Also, the patient experienced difficulty or extreme pain with even covers brushing the left extremity. Discussed with the patient epidural, continuous placement. Risks and benefits were explained including risk of bleeding, epidural hematoma, and infection. The patient is not on anticoagulation therapy at this time. The patient elects to proceed with procedure and would like to be admitted to the hospital for 48-72 hours to make sure that her pain is well controlled. 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 The patient was placed in sitting position, Betadine prep and drape. Local anesthetic was used to skin wheal at the L1-L2 level. A 17-gauge Tuohy needle was then introduced in the epidural space with loss of resistance technique. Catheter was threaded easily, test dose was negative. The catheter was then secured in place and a loading dose of 8 mL of 0.25% bupivacaine was then introduced into the epidural catheter. The patient was placed on a continuous epidural catheter 80 mL an hour. The patient relates that her pain within 2-3 minutes had significant improvement where it was a 10/10, was probably down to about 4/10. Within 10-15 minutes, the patient relates that her pain was 0 out of 10 and she was having some numbness bilaterally. We felt that we had good epidural capture for pain control of her RSD, patient is to be moved to the floor on a continuous epidural infusion. The patient has continued to have oxycodone 5 mg q.4 hours for breakthrough pain and wrist pain. TRANSINT:[id number] Voice Confirmation ID: [id number] DOCUMENT ID: [id number] PROCEDURE NOTE [id number] JEANETH ZAMBRANO FARRELL MD at 1223 CC: [id number] DICTATION DATE: 07/05/17 1548 TIME STUDY ENGINEER: 07/06/17 1038 ADM IN [facility] [address] [place] [address]
--- NOTE | 2017-07-06 14:41 | NUR ---
Patient Name: JEANETH FARRELL Admission Status: Elective Accout number: [id number] Admission Date: 07-05-2017 : 1960 Admission Diagnosis: Attending: QUIQUE LOZA Current LOS: 1 Anticipated DC Date: Planned Disposition: Home Primary Insurance: [place] PRIVATE OPTIONS [facility] Discharge Planning Comments: CM MET WITH PATIENT TO ASSESS DISCHARGE PLANNING NEEDS. PATIENT LIVES INDEPENDENTLY WITH HER WHERE SHE PLANS TO RETURN. HER WILL BE HER BALLPOINT PEN ASSEMBLY MACHINE OPERATOR HOME. SHE HAS ABEDSIDE COMMODE AND USE TO USE HH BUT RAN OUT OF DAYS, SHE WILL HAVE HOME HEALTH DAYS START BACK UP IN JUL 2017 (PER PATIENT) PATIENT STATES HER HOME IS SAFE TO RETURN. CM WILL CONTINUE TO FOLLOW AND ASSIST WITH DISCHARGE PLANNING NEEDS. PCP; [facility] GARETH FARRELL () [phone] Micro Paleontologist: Melina Ingram * Is the patient Alert and Oriented? Yes 0 * How many steps to enter\exit or inside your home? 1 0 * PCP [facility] 0 * Pharmacy [facility] 0 * Preadmission Environment Home with Family 0 * ADLs Independent 0 * Equipment Bedside Commode 0 * List name and contact numbers for known caregivers / representatives who currently or will assist patient after discharge: GARETH FARRELL () 0 * Community resources currently utilized None 0 * Additional services required to return to the preadmission environment? No 0 * Can the patient safely return to the preadmission environment? Yes 0 * Has this patient been hospitalized within the prior 30 days at any hospital? No 0 Grand Total: 0
[2017-07-06 16:32] VITALS: BP 116/47
[2017-07-06 20:00] VITALS: BP 135/64
[2017-07-07 04:00] VITALS: BP 127/62
--- NOTE | 2017-07-07 07:00 | NUR ---
REPORT RECIEVED ASSUMED CARE. PATIENT IN BED WITH NO COMPLAINTS AT THIS TIME. IV INTACT. CALL LIGHT WITHIN REACH.
[2017-07-07 07:11] VITALS: BP 146/65
--- NOTE | 2017-07-07 07:30 | NUR ---
PATIENT IN BED SHAKING AND SAYING THAT SHE IS HAVING ANXIETY BC OF LITTLE THINGS THAT HAPPEN. STATED SHE WILL BE OK. EXPLAINED TO PATIENT THAT I WOULD CALL THE DOCTOR AND SEE IF ANYTHING COULD BE GIVEN FOR ANXIETY. CALL MARIA L MARQUEZ.
--- NOTE | 2017-07-07 09:43 | NUR ---
PATIENT RECIEVED ATIVAN PO FOR ANXIETY. OK'D WITH DR. FELIPE. IV INTACT. FAMILY AT BEDSIDE. CALL LIGHT WITHIN REACH.
[2017-07-07 12:24] VITALS: BP 117/52
[2017-07-07 15:00] VITALS: BP 123/63
[2017-07-07 19:30] VITALS: BP 115/53
[2017-07-07 23:30] VITALS: BP 120/50
[2017-07-08 03:30] VITALS: BP 93/40
--- NOTE | 2017-07-08 07:00 | NUR ---
REPORT RECIEVED ASSUMED CARE. PATIENT IN BED WITH IV INTACT. NO COMPLAINTS. CALL LIGHT WITHIN REACH.
[2017-07-08 07:34] VITALS: BP 117/54
--- NOTE | 2017-07-08 09:00 | NUR ---
PATIENT IV LEAKING AND RED REMOVED WITH CATH TIP INTACT. PATIENT STATED SHE DIDNT WANT ANOTHER ONE STARTED AT THIS TIME BECAUSE IT WASNT BEING USED, BUT IF SHE HAD TO HAVE ONE LATER WE COULD TRY TO START ONE.
--- NOTE | 2017-07-08 12:30 | NUR ---
PATIENT SITTING UP IN BED WITH NO COMPLAINTS AT THIS TIME. ICE PACK TO ARM. CALL LIGHT WITHIN REACH.
[2017-07-08 15:01] VITALS: BP 100/53
--- NOTE | 2017-07-08 18:50 | NUR ---
PATIENT UP IN BED WITH IV INTACT. BSCDS ON. FAMILY AT BEDSIDE. DR. KNAPP IN TO CHANGE EPIDURAL MEDS. CALL LIGHT WITHIN REACH.
[2017-07-08 19:30] VITALS: BP 103/52
[2017-07-09] VITALS (7 sets, daily range): BP systolic 97–130; BP diastolic 49–109
--- NOTE | 2017-07-09 04:53 | NUR ---
RESTING QUIETLY IN BED WITH EYES CLOSED. RESPS ARE EVEN AND UNLABORED. NO ACUTE DISTRESS NOTED.
--- NOTE | 2017-07-09 21:00 | NUR ---
PT C/O LEFT WRIST PAIN 01/30. GAVE OXY IR AND ZANAFLEX. GAVE OTHER SCHEDULED MEDS. EPIDURAL INFUSING. PINA CATHETER IN PLACE. KEEPING PT TURNED. COMPLETE ASSESSMENT PER FLOW-SHEET. AT BEDSIDE. WILL CONTINUE TO MONITOR.
[2017-07-10 04:01] VITALS: BP 117/82
--- NOTE | 2017-07-10 07:45 | NUR ---
AWAKE AND ALERT. ORIENTED X3. NO C/O AT THIS TIME. LUNGS ARE CLEAR BUT DIMINISHED IN LOWER LOBES. NO COUGH NOTED. SKIN IS INTACT WITHOUT REDNESS. LARGE BRUISE NOTED TO INNER SIDE OF RIGHT FOREARM. PINA PATENT WITH CLEAR YELLOW URINE. AT BEDSIDE. DENIES NEEDS.
[2017-07-10 08:21] VITALS: BP 130/69
[2017-07-10 09:19] LABS: HEMOGLOBIN 11.5 g/dL (12-16); MCH 31.3 pg (26.0-34.0); MCHC 31.9 g/dL (31.0-37.0); MCV 98.1 fL (80.0-100.0); MEAN PLATELET VOLUME 10.8 fL (7.4-10.4); RBC 3.67 10x6/uL (4.00-5.40); RDW 15.9 % (11.5-14.5)
[2017-07-10 09:27] LABS: APTT 22.1 SECONDS (22.8-39.4); INR 1.01 (0.85-1.17); PROTIME 12.9 SECONDS (11.6-15.0)
[2017-07-10 09:31] LABS: CALC OSMOLALITY 265 mosm/kg (275-300); CALCIUM 9.1 mg/dL (8.5-10.1); CARBON DIOXIDE 36.1 mmol/L (21.0-32.0); CHLORIDE - SERUM 97 mmol/L (98-107); CREATININE - SERUM 0.8 mg/dL (0.6-1.3); GLUCOSE 112 mg/dL (74-106); POTASSIUM - SERUM 3.9 mmol/L (3.5-5.1); SODIUM 130 mmol/L (136-145); UREA NITROGEN 23 mg/dL (7-18); eGFR NON AFRICAN AMERICAN 78 mL/min (90-120)
--- NOTE | 2017-07-10 10:31 | NUR ---
DR. KNAPP NOTIFIED BAG IN EPIDURAL ALMOST EMPTY.
[2017-07-10 13:24] VITALS: BP 127/76
[2017-07-10 16:07] VITALS: BP 122/69
--- NOTE | 2017-07-10 18:55 | NUR ---
UP TO BR WITH ONE PERSON ASSIST. NO BM AT THIS TIME. ATE ALL OF SUPPER. DENIES NEEDS. NO CHANGES NOTED.
--- NOTE | 2017-07-10 19:25 | NUR ---
RECIEVED SHIFT REPORT. PT IS LYING IN BED. ALERT AND ORIENTED AND ABLE TO VERBALIZE NEEDS. NO IV ACCESS AT THIS TIME. PT IS AMBULATORY WITH ASSISTANCE. PINA IS DRAINING URINE BY GRAVITY. SCD'S OFF PER PT REQUEST AT THIS TIME. PT STATES PAIN IS 8/10. EPIDURAL BLOCK STILL IN PT BUT NOT CONNECTED OR TURNED ON. NO NEEDS ARE VERBALIZED AT THIS TIME. WILL CONTINUE TO MONITOR. IS AT THE BEDSIDE. SIDE RAILS ARE UP X 2. BED IS IN LOWEST POSITION. BED ALARM IS ON FOR SAFETY. CALL LIGHT IS WITHIN REACH.
[2017-07-10 20:00] VITALS: BP 114/57
--- NOTE | 2017-07-11 02:34 | NUR ---
PT REQUESTING ME TO PAGE ANESTHESIOLOGIST ANIMAL HUMANE AGENT SUPERVISOR. STATES IT IS A BAD NIGHT. STATES SHE WANTS ME TO CALL AND LET THEM KNOW THAT SHE DOES NOT THINK IT IS BAD ENOUGHT FOR THEM TO DROP WHAT THEY ARE DOING TO COME UP HERE, BUT THAT THEY JUST NEED TO KNOW WHAT IS GOING ON. CALL PLACED AND WAS INFORMED THAT DR FELIPE WOULD BE MAKING ROUNDS IN THE MORNING. PT VERBALIZED UNDERSTANDING.
[2017-07-11 07:10] VITALS: BP 103/63
--- NOTE | 2017-07-11 08:00 | NUR ---
PT ASSESSMENT COMPLETE AWAKE AND ALERT ORIENTED X 3 LUNGS CLAER BIALTERALLY NO DISTRESS NOTED VOICES ALL NEEDS OT STAFF CALL LIGHT IN REACH SIDE RAILS UP X 2 SPOUSE AT BEDSIDE. PINA PATENT TO DARK YELLOW URINE.
--- NOTE | 2017-07-11 08:30 | NUR ---
RESTING WITHOUT NEEDS.CALL LIGHT IN REACH
[2017-07-11 10:58] VITALS: BP 111/75
[2017-07-11 14:31] LABS: COLOR YELLOW (YELLOW)
[2017-07-11 14:32] LABS: APPEARANCE CLOUDY (CLEAR); BILIRUBIN NEGATIVE (NEGATIVE); GLUCOSE NEGATIVE (NEGATIVE); KETONE NEGATIVE (NEGATIVE); NITRITE POSITIVE (NEGATIVE); PROTEIN TRACE mg/dL (NEGATIVE); SPECIFIC GRAVITY 1.015 (1.005-1.020); UROBILINOGEN NORMAL (NORMAL)
[2017-07-11 14:33] LABS: WHITE CELLS - URINE 25-50 /hpf (0-5)
[2017-07-11 14:34] LABS: BACTERIA MANY /hpf (NONE SEEN); EPITHELIAL CELLS 0-5 /hpf (0-5)
[2017-07-11 15:01] VITALS: BP 113/68
[2017-07-11] MEDS ORDERED: NEURONTIN 300300 MG PO (15:46)
[2017-07-11] MEDS ORDERED: OXYCONTIN10 MG PO (15:51)
--- NOTE | 2017-07-11 18:13 | NUR ---
PT DISCHARGED AT THIS TIME WITH WRITTEN RX FOR OXY ER 10 MG # 60 AND PERCOCET 10/325 #60 SENT WITH PT.
== END 2017-07-11 18:14 | disposition home or self-care (01) | DRG 74 ==
LOC: D.OPS 13:41 → D.MS 15:49 → D.OPS 15:50 → D.MS 07-11 18:14
PROVIDERS: ADMIT Orthopaedic Surgery
PROC: 00HU33Z Insertion of Infusion Device into Spinal Canal, Percutaneous Approach (ICD-10-PCS; principal; 2017-07-05)
PROC: 3E0R3BZ Introduction of Anesthetic Agent into Spinal Canal, Percutaneous Approach (ICD-10-PCS; 2017-07-05)
DX: G90.50 Complex regional pain syndrome I, unspecified (principal); I34.0 Nonrheumatic mitral (valve) insufficiency; K21.9 Gastro-esophageal reflux disease without esophagitis; M19.90 Unspecified osteoarthritis, unspecified site; Z96.652 Presence of left artificial knee joint; Z87.891 Personal history of nicotine dependence

== ENCOUNTER 2017-12-10 02:09 | Emergency (ER) | payer MEDICAID ==
[2017-07-05 20:44] VITALS: BMI 26.5
[~2017-12-10 02:09] MED LIST changes: -IMDUR30 MG PO; +ISOSORBIDE MONO60 M1 PO; +NEURONTIN 300300 MG PO; +OXYCONTIN10 MG PO
[2017-12-10 05:18] LABS: BASOPHILS 0.1 % (0-2); EOSINOPHILS 1.6 % (0-7); HEMATOCRIT 34.3 % (36.0-48.0); HEMOGLOBIN 11.2 g/dL (12-16); IMMATURE GRANULOCYTES 0.3 % (0-5); LYMPHOCYTES 25.2 % (15-50); MCH 31.7 pg (26.0-34.0); MCHC 32.7 g/dL (31.0-37.0); MCV 97.2 fL (80.0-100.0); MEAN PLATELET VOLUME 10.8 fL (7.4-10.4); MONOCYTES 11.6 % (2-11); NEUTROPHILS 61.2 % (40-80); RBC 3.53 10x6/uL (4.00-5.40); RDW 15.2 % (11.5-14.5); WBC 7.5 10x3/uL (4.8-10.8)
[2017-12-10 05:30] LABS: PLATELET COUNT 139 10x3/uL (130-400)
[2017-12-10 05:53] LABS: ALBUMIN 3.2 g/dL (3.4-5.0); ANION GAP 11.1 mmol/L (8-16); BILIRUBIN - TOTAL 0.19 mg/dL (0.2-1.3); CALCIUM 8.9 mg/dL (8.5-10.1); CARBON DIOXIDE 29.2 mmol/L (21.0-32.0); POTASSIUM - SERUM 4.3 mmol/L (3.5-5.1); PROTEIN - SERUM 6.4 g/dL (6.4-8.2); THYROID STIMULATING HORMONE 0.88 uIU/mL (0.36-3.74)
== END 2017-12-10 06:13 | disposition home or self-care (01) ==
LOC: D.ER 02:09
PROVIDERS: Family Medicine
DX: M62.838 Other muscle spasm (principal); G90.521 Complex regional pain syndrome I of right lower limb

== ENCOUNTER 2017-12-10 19:38 | Emergency (ER) | payer MEDICAID ==
[2017-07-05 20:44] VITALS: BMI 26.5
== END 2017-12-10 21:25 | disposition home or self-care (01) ==
LOC: D.ER 19:38
DX: G90.521 Complex regional pain syndrome I of right lower limb (principal); M62.838 Other muscle spasm

== ENCOUNTER 2017-12-12 22:51 | Inpatient (IN) | payer MEDICAID ==
[~2017-12-12] VITALS: Ht 154.9 cm; Wt 68.0 kg
--- NOTE | ~2017-12-12 | EC ---
PATIENT:JEANETH FARRELL DATE OF SERVICE: 12/13/17 SEX: F MEDICAL RECORD: [id number] DATE OF : 58 LOCATION:D.MS Jorge AGE OF PATIENT: 57 ADMISSION DATE: 12/13/17 REFERRING PHYSICIAN: INTERPRETING PHYSICIAN: GENNY FIGUEROA MD ECHOCARDIOGRAM REPORT ECHO CHARGES 4 ECHO COMPLETE Date: 12/15 CLINICAL DIAGNOSIS: SYNCOPE HX OF ME/MULTIPLE STENTS ECHOCARDIOGRAPHIC MEASUREMENTS (adult normal given) AC root (d.<3.7cm) 3.5 cm LV Septum d (<1.2 cm> 1.6 cm Valve Excursion 1.3 cm LV Septum (systole) 1.8 cm Left Atria (s.<4.0cm> 3.8 cm LVPW d(<1.2cm) 1.4 cm RV (d.<2.3cm) 3.9 cm LVPW (sytole) 1.7 cm LV diastole(<5.6CM) 4.3 cm MV E-F(>70mm/sec) 2.5 cm LV systole cm LVOT Diameter 2.0 cm MV exc.(>10mm) 1.6 cm Est.ejection fraction (50-75%) % DOPPLER: LVIT cm/sec A 98.0 cm/sec E 73.0 cm/sec LA cm/sec RVSP 25 mmHg LVOT 128 cm/sec AOP1/2T m/s Asc. Ao 173 cm/sec RVOT cm/sec RA cm/sec PA cm/sec AV Gradient Peak 12.01mmHg AV Mean 5.75 mmHg AV Area 2.4 cm MV Gradient Peak 6.10 mmHg MV Mean 2.33 mmHg MV Area cm COMMENTS: Sales Service Route Manager: 2 VALERIE HERNANDEZ Bathing Suit Maker: 4 Dr. Figueroa TAPE# PACS Pericardial Effusion N DATE OF SERVICE: PROCEDURE: Transthoracic echocardiogram. FINDINGS: 1. This is a difficult study overall. Endocardial structures were not well visualized. The overall ejection fraction appears to be preserved. There are no obvious regional wall motion abnormalities. [place] is not very well visualized. 2. Aortic valve appears to be normal. ECHOCARDIOGRAM REPORT [id number] JEANETH FARRELL 3. Left atrium appears to be normal size. 4. The mitral valve has mild mitral regurgitation. Grossly, the structure looks normal. 5. The tricuspid valve is not well visualized, but mild tricuspid regurgitation. RVSP at 25 mmHg. 6. The right ventricle is mildly dilated with normal function. 7. The right atrium mildly dilated. 8. Pulmonic valve was not well visualized. CONCLUSIONS: The patient has evidence of hypertensive heart disease and diastolic dysfunction with preserved LV systolic function. TRANSINT:[id number] Voice Confirmation ID: [id number] DOCUMENT ID: [id number] GENNY FIGUEROA MD at 1029 CC: [id number] DICTATION DATE: 12/21/17 08 SHEARER SCREEN MEASURER AND TRIMMER: 12/21/17 0935 DIS IN 12/22/17 [facility] [address] [place] [address]
--- NOTE | ~2017-12-12 | CN ---
PATIENT NAME:JEANETH ZAMBRANO MEDICAL RECORD: [id number] : 58 LOCATION:D.MS [facility]2201 ADMIT DATE: 12/13/17 ACCOUNT: [id number] CONSULTING PHYSICIAN: THOR KHAN MD REFERRING PHYSICIAN: FELTON PEREZ MD DATE OF CONSULTATION: 12/14/2017 Pulmonary Consultation CONSULT REQUESTING PHYSICIAN: Felton Perez MD REASON FOR CONSULTATION: Possible pneumonia. HISTORY OF PRESENT ILLNESS: Ms. Zambrano is a 57-year-old female who came into the ER with coughing productive with white yellow color sputum production. She was also having some sort of chest pain occurred after she fell down and she almost blacked out. She was also seen in the hospital in the ER last Monday for leg cramps, for which she was given some magnesium. The patient denies any fever or chills, no night sweats. REVIEW OF SYSTEMS: As in history of present illness. PAST MEDICAL HISTORY: 1. Coronary artery disease status post angioplasty and stent placement. 2. Osteoarthritis. 3. Anxiety, depression. PAST SURGICAL HISTORY: 1. She has a . 2. She has a left knee replacement. 3. She has a cardiac catheterization and stent placement. ALLERGIES: SHE IS ALLERGIC TO PENICILLIN, LATEX AND ADHESIVE. PRESENT MEDICATIONS: [employer] is reviewed. PERSONAL AND SOCIAL HISTORY: The patient is an ex-smoker. She is a nondrinker. FAMILY HISTORY: Significant for coronary artery disease. PHYSICAL EXAMINATION: GENERAL: Now, the patient is lying comfortably in bed. She is not in acute distress. VITAL SIGNS: The blood pressure is 126/76, pulse is 91, respirations 16, temperature 98.8, SpO2 98% on room air. HEENT: Conjunctivae are pink. Sclerae are not icteric. NECK: Supple, no JVD. CHEST: The chest excursion is minimal on both sides. There are bibasilar crackles. No wheezing. HEART: Rhythm regular, normal sound, no murmur. ABDOMEN: Abdomen is soft, bowel sounds present. No hepatosplenomegaly. RECTAL: Examination is deferred. EXTREMITIES: No cyanosis, no clubbing. There is no pedal edema. SKIN: The skin is warm, normal turgor. CENTRAL NERVOUS SYSTEM: The patient has no obvious cranial nerve abnormality. CONSULT REPORT [id number] JEANETH ZAMBRANO The gait was not tested. DIAGNOSTIC STUDIES: Chest radiograph, increased interstitial marking. There are old calcified granulomas. OTHER LABORATORY DATA: CBC: WBC 12.2, hemoglobin 15, hematocrit 44.3, platelet count 196. Chemistry: Sodium 138, potassium is 4.5, BUN is 30, creatinine 0.9. IMPRESSION: 1. Tracheobronchitis, rule out pneumonia. 2. Leukocytosis. 3. Dyspnea on exertion. 4. Syncopal episode, rule out PE, rule out pulmonary hypertension. 5. Ex-smoker, suspect chronic obstructive pulmonary disease. 6. Old granulomatous disease with calcified granulomas in the lung. RECOMMENDATION: 1. We will start empiric doxycycline. 2. Check the cardiac echo. 3. Check the D-dimer. If it is positive, we will proceed with CTA of the chest, follow up labs and chest radiograph. Dr. Perez, thank you for involving me in the care of Ms. Zambrano. TRANSINT:[id number] Voice Confirmation ID: [id number] DOCUMENT ID: [id number] THOR KHAN MD at 1806 CC: FELTON PEREZ MD [id number] DICTATION DATE: 12/14/17 1556 BINDER ROLLER: 12/14/17 1720 DIS IN 12/22/17 [place] [id number]
[2017-12-13 00:37] LABS: BASOPHILS 0.2 % (0-2); EOSINOPHILS 0.2 % (0-7); HEMATOCRIT 44.3 % (36.0-48.0); IMMATURE GRANULOCYTES 0.2 % (0-5); LYMPHOCYTES 13.9 % (15-50); MCH 32.1 pg (26.0-34.0); MCHC 33.9 g/dL (31.0-37.0); MCV 94.7 fL (80.0-100.0); MEAN PLATELET VOLUME 10.9 fL (7.4-10.4); MONOCYTES 12.6 % (2-11); NEUTROPHILS 72.9 % (40-80); RBC 4.68 10x6/uL (4.00-5.40); RDW 15.1 % (11.5-14.5); WBC 12.2 10x3/uL (4.8-10.8)
[2017-12-13 00:39] LABS: PLATELET COUNT 196 10x3/uL (130-400)
[2017-12-13 00:54] LABS: ALBUMIN 4.1 g/dL (3.4-5.0); ALKALINE PHOSPHATASE 114 U/L (46-116); ALT (SGPT) 13 U/L (10-68); CALC OSMOLALITY 279 mosm/kg (275-300); CALCIUM 10.1 mg/dL (8.5-10.1); CARBON DIOXIDE 25.6 mmol/L (21.0-32.0); CHLORIDE - SERUM 101 mmol/L (98-107); GLUCOSE 100 mg/dL (74-106); POTASSIUM - SERUM 3.6 mmol/L (3.5-5.1); PROTEIN - SERUM 8.8 g/dL (6.4-8.2); SODIUM 139 mmol/L (136-145); UREA NITROGEN 19 mg/dL (7-18); eGFR NON AFRICAN AMERICAN 60 mL/min (90-120)
[2017-12-13 01:07] LABS: CHOL - HDL RATIO 2.7 ratio (2.3-4.1); CHOLESTEROL, TOTAL 197 mg/dL (0-200); CKMB 0.4 U/L (0.0-3.6); CREATINE KINASE 45 UL (21-215); HDL CHOLESTEROL 73 mg/dL (32-96); LDL CHOLESTEROL 110 mg/dL (0-100); LDL-HDL RATIO 1.5 ratio (1.5-3.5); TRIGLYCERIDE 70 mg/dL (30-200); TROPONIN-I < 0.017 ng/mL (0.000-0.060)
[2017-12-13 01:54] LABS: APPEARANCE CLEAR (CLEAR); COLOR YELLOW (YELLOW); GLUCOSE NEGATIVE (NEGATIVE); KETONE MODERATE mg/dL (NEGATIVE); NITRITE NEGATIVE (NEGATIVE); PROTEIN 1+ mg/dL (NEGATIVE)
[2017-12-13 01:55] LABS: BACTERIA FEW /hpf (NONE SEEN); BILIRUBIN NEGATIVE (NEGATIVE); EPITHELIAL CELLS 0-5 /hpf (0-5); MUCUS >1+ /lpf (NONE SEEN); RED CELLS - URINE 0-5 /hpf (0-5); UROBILINOGEN NORMAL (NORMAL); WHITE CELLS - URINE 0-5 /hpf (0-5)
[2017-12-13 04:00] VITALS: BP 135/66
[2017-12-13] MEDS ORDERED: ALENDRONATE SOD70 MG PO (04:48)
[2017-12-13 04:52] VITALS: BP 135/66; BMI 28.4
[2017-12-13 08:09] LABS: CREATINE KINASE 45 UL (21-215); TROPONIN-I < 0.017 ng/mL (0.000-0.060)
[2017-12-13 09:09] VITALS: BP 131/55
[2017-12-13 12:35] VITALS: BMI 28.3
[2017-12-13 12:38] VITALS: BP 109/57
[2017-12-13 14:10] LABS: CKMB 0.1 U/L (0.0-3.6); CREATINE KINASE 46 UL (21-215)
[2017-12-13 14:15] LABS: TROPONIN-I < 0.017 ng/mL (0.000-0.060)
[2017-12-13 17:07] VITALS: BP 134/53
[2017-12-13 18:56] LABS: CKMB 0.4 U/L (0.0-3.6); CREATINE KINASE 43 UL (21-215); TROPONIN-I < 0.017 ng/mL (0.000-0.060)
[2017-12-13 20:00] VITALS: BP 143/72
[2017-12-14] VITALS: BP 123/67
[2017-12-14 04:45] VITALS: BP 118/76
[2017-12-14 06:19] LABS: BASOPHILS 0 % (0-2); EOSINOPHILS 0 % (0-7); HEMATOCRIT 41.4 % (36.0-48.0); HEMOGLOBIN 14.1 g/dL (12-16); IMMATURE GRANULOCYTES 0.3 % (0-5); LYMPHOCYTES 6.9 % (15-50); MCH 32.3 pg (26.0-34.0); MCHC 34.1 g/dL (31.0-37.0); MEAN PLATELET VOLUME 11.5 fL (7.4-10.4); MONOCYTES 2.3 % (2-11); NEUTROPHILS 90.5 % (40-80); PLATELET COUNT 207 10x3/uL (130-400); RBC 4.36 10x6/uL (4.00-5.40)
[2017-12-14 06:34] LABS: ALBUMIN 3.6 g/dL (3.4-5.0); BILIRUBIN - TOTAL 0.47 mg/dL (0.2-1.3); CALCIUM 9.4 mg/dL (8.5-10.1); CARBON DIOXIDE 24.6 mmol/L (21.0-32.0); CREATININE - SERUM 0.9 mg/dL (0.6-1.3); PROTEIN - SERUM 7.7 g/dL (6.4-8.2)
[2017-12-14 06:35] LABS: ANION GAP 17.9 mmol/L (8-16); POTASSIUM - SERUM 4.5 mmol/L (3.5-5.1)
[2017-12-14 08:33] VITALS: BP 119/85
[2017-12-14 13:18] VITALS: BP 126/76
[2017-12-14 16:11] VITALS: BP 132/71
[2017-12-14 20:00] VITALS: BP 118/71
[2017-12-15] VITALS: BP 93/47
[2017-12-15 04:00] VITALS: BP 110/71
[2017-12-15 04:33] LABS: BASOPHILS 0 % (0-2); EOSINOPHILS 0 % (0-7); HEMOGLOBIN 12.4 g/dL (12-16); IMMATURE GRANULOCYTES 0.3 % (0-5); LYMPHOCYTES 4.5 % (15-50); MCH 31.6 pg (26.0-34.0); MCHC 33.5 g/dL (31.0-37.0); MCV 94.4 fL (80.0-100.0); MEAN PLATELET VOLUME 11.4 fL (7.4-10.4); MONOCYTES 3.5 % (2-11); NEUTROPHILS 91.7 % (40-80); PLATELET COUNT 195 10x3/uL (130-400); RBC 3.92 10x6/uL (4.00-5.40); RDW 14.8 % (11.5-14.5)
[2017-12-15 04:38] LABS: WBC 15.2 10x3/uL (4.8-10.8)
[2017-12-15 04:46] LABS: ANION GAP 13.1 mmol/L (8-16); CALCIUM 9.1 mg/dL (8.5-10.1); CARBON DIOXIDE 28.8 mmol/L (21.0-32.0); CREATININE - SERUM 1.1 mg/dL (0.6-1.3); POTASSIUM - SERUM 3.9 mmol/L (3.5-5.1)
[2017-12-15 08:10] VITALS: BP 118/52
[2017-12-15 12:12] VITALS: BP 123/81
[2017-12-15 15:33] VITALS: BP 130/76
[2017-12-15 21:05] VITALS: BP 114/59
[2017-12-16 00:26] VITALS: BP 124/64
[2017-12-16 04:32] VITALS: BP 114/52
[2017-12-16 05:55] LABS: BASOPHILS 0 % (0-2); EOSINOPHILS 0 % (0-7); HEMATOCRIT 34.6 % (36.0-48.0); HEMOGLOBIN 11.6 g/dL (12-16); IMMATURE GRANULOCYTES 0.2 % (0-5); MCH 31.6 pg (26.0-34.0); MCHC 33.5 g/dL (31.0-37.0); MCV 94.3 fL (80.0-100.0); MEAN PLATELET VOLUME 11.9 fL (7.4-10.4); MONOCYTES 3.4 % (2-11); NEUTROPHILS 92.4 % (40-80); PLATELET COUNT 160 10x3/uL (130-400); RBC 3.67 10x6/uL (4.00-5.40); RDW 14.7 % (11.5-14.5)
[2017-12-16 06:06] LABS: WBC 8.5 10x3/uL (4.8-10.8)
[2017-12-16 06:19] LABS: ANION GAP 14.7 mmol/L (8-16); CALCIUM 8.3 mg/dL (8.5-10.1); CARBON DIOXIDE 24.7 mmol/L (21.0-32.0); POTASSIUM - SERUM 3.4 mmol/L (3.5-5.1)
[2017-12-16 07:48] VITALS: BP 103/54
[2017-12-16 12:39] VITALS: BP 123/66
[2017-12-16 16:17] VITALS: BP 114/64
[2017-12-16 23:04] VITALS: BP 147/72
[2017-12-17 04:33] VITALS: BP 120/75
[2017-12-17 04:35] LABS: BASOPHILS 0 % (0-2); EOSINOPHILS 0 % (0-7); HEMATOCRIT 35.3 % (36.0-48.0); HEMOGLOBIN 12.2 g/dL (12-16); IMMATURE GRANULOCYTES 0.6 % (0-5); MCH 32.3 pg (26.0-34.0); MCHC 34.6 g/dL (31.0-37.0); MCV 93.4 fL (80.0-100.0); MEAN PLATELET VOLUME 11.4 fL (7.4-10.4); MONOCYTES 4.5 % (2-11); NEUTROPHILS 89.9 % (40-80); PLATELET COUNT 151 10x3/uL (130-400); RBC 3.78 10x6/uL (4.00-5.40); RDW 14.3 % (11.5-14.5)
[2017-12-17 04:49] LABS: ANION GAP 12.3 mmol/L (8-16); CALCIUM 8.7 mg/dL (8.5-10.1); CARBON DIOXIDE 29.4 mmol/L (21.0-32.0); CREATININE - SERUM 1.1 mg/dL (0.6-1.3); POTASSIUM - SERUM 3.7 mmol/L (3.5-5.1)
[2017-12-17 08:42] VITALS: BP 137/73
[2017-12-17 12:45] VITALS: BP 139/75
[2017-12-17 16:35] VITALS: BP 145/75
[2017-12-17 21:12] VITALS: BP 145/64
[2017-12-18] VITALS (7 sets, daily range): BP systolic 123–154; BP diastolic 64–77
[2017-12-18 07:48] LABS: BASOPHILS 0 % (0-2); EOSINOPHILS 0 % (0-7); HEMATOCRIT 37.3 % (36.0-48.0); HEMOGLOBIN 12.4 g/dL (12-16); IMMATURE GRANULOCYTES 0.6 % (0-5); LYMPHOCYTES 5.5 % (15-50); MCH 31.3 pg (26.0-34.0); MCHC 33.2 g/dL (31.0-37.0); MCV 94.2 fL (80.0-100.0); MEAN PLATELET VOLUME 11.5 fL (7.4-10.4); MONOCYTES 5.1 % (2-11); NEUTROPHILS 88.8 % (40-80); PLATELET COUNT 152 10x3/uL (130-400); RBC 3.96 10x6/uL (4.00-5.40); RDW 14.3 % (11.5-14.5); WBC 9.4 10x3/uL (4.8-10.8)
[2017-12-18 07:50] LABS: ANION GAP 9.4 mmol/L (8-16); CALCIUM 8.5 mg/dL (8.5-10.1); CARBON DIOXIDE 31.6 mmol/L (21.0-32.0); CREATININE - SERUM 0.9 mg/dL (0.6-1.3)
[2017-12-19 04:47] LABS: BASOPHILS 0.1 % (0-2); EOSINOPHILS 0 % (0-7); HEMATOCRIT 38.9 % (36.0-48.0); HEMOGLOBIN 13.3 g/dL (12-16); IMMATURE GRANULOCYTES 1.4 % (0-5); LYMPHOCYTES 7.5 % (15-50); MCH 32.1 pg (26.0-34.0); MCHC 34.2 g/dL (31.0-37.0); MEAN PLATELET VOLUME 11.4 fL (7.4-10.4); MONOCYTES 8.7 % (2-11); NEUTROPHILS 82.3 % (40-80); PLATELET COUNT 155 10x3/uL (130-400); RBC 4.14 10x6/uL (4.00-5.40); RDW 14.1 % (11.5-14.5)
[2017-12-19 05:02] LABS: INR 1.06 (0.85-1.17); PROTIME 13.5 SECONDS (11.6-15.0)
[2017-12-19 05:03] LABS: WBC 11.8 10x3/uL (4.8-10.8)
[2017-12-19 05:12] LABS: ANION GAP 8.9 mmol/L (8-16); CALCIUM 8.7 mg/dL (8.5-10.1); CARBON DIOXIDE 36.4 mmol/L (21.0-32.0); CREATININE - SERUM 0.9 mg/dL (0.6-1.3)
[2017-12-19 05:15] LABS: POTASSIUM - SERUM 3.3 mmol/L (3.5-5.1)
[2017-12-19 05:40] VITALS: BP 119/60
[2017-12-19 09:20] VITALS: BP 114/66
[2017-12-19 09:56] VITALS: Ht 154.9 cm; Wt 68.0 kg
[2017-12-19 13:15] VITALS: BP 105/65
[2017-12-19 17:01] VITALS: BP 132/60
[2017-12-19 22:17] VITALS: BP 111/56
[2017-12-20 03:56] VITALS: BP 99/52
[2017-12-20 08:06] VITALS: BP 99/51
[2017-12-20 12:44] VITALS: BP 134/76
[2017-12-20 16:25] VITALS: BP 119/66
[2017-12-21 03:50] VITALS: BP 124/78
[2017-12-21 08:14] VITALS: BP 136/73
[2017-12-21 12:27] VITALS: BP 133/64
[2017-12-21 15:59] VITALS: BP 93/52
[2017-12-21 21:15] VITALS: BP 122/55
[2017-12-22 00:45] VITALS: BP 110/50
[2017-12-22 04:00] VITALS: BP 108/55
[2017-12-22 08:02] VITALS: BP 124/71
[2017-12-22] MEDS ORDERED: NYSTATIN ORAL SU5 ML PO (10:11)
[2017-12-22] MEDS ORDERED: NEURONTIN 300300 MG PO (10:11)
[2017-12-22] MEDS ORDERED: PROTONIX40 MG PO (10:12)
[2017-12-22] MEDS ORDERED: CARAFATE1 G/10 ML PO (10:12)
[2017-12-22] MEDS ORDERED: MIRALAX17 GM PO (10:13)
== END 2017-12-22 13:30 | disposition home or self-care (01) | DRG 391 ==
LOC: D.ER 22:51 → D.EDHOLD 12-13 02:19 → D.MS 12-13 02:19
PROVIDERS: Family Medicine; Internal Medicine Gastroenterology; Internal Medicine Pulmonary Disease; Physician Assistant
PROC: 0DB78ZX Excision of Stomach, Pylorus, Via Natural or Artificial Opening Endoscopic, Diagnostic (ICD-10-PCS; 2017-12-20)
PROC: 0DB38ZX Excision of Lower Esophagus, Via Natural or Artificial Opening Endoscopic, Diagnostic (ICD-10-PCS; 2017-12-20)
PROC: 0DB98ZX Excision of Duodenum, Via Natural or Artificial Opening Endoscopic, Diagnostic (ICD-10-PCS; principal; 2017-12-20 16:00)
DX: K29.00 Acute gastritis without bleeding (principal); J18.9 Pneumonia, unspecified organism; N39.0 Urinary tract infection, site not specified; G90.523 Complex regional pain syndrome I of lower limb, bilateral; B37.81 Candidal esophagitis; J40 Bronchitis, not specified as acute or chronic; R55 Syncope and collapse; D18.09 Hemangioma of other sites; K44.9 Diaphragmatic hernia without obstruction or gangrene; K21.0 Gastro-esophageal reflux disease with esophagitis

== ENCOUNTER → 2018-01-19 13:56 | Outpatient (CLI) | payer MEDICAID ==
[2017-12-19 09:56] VITALS: BMI 28.3
[~2018-01-19 13:56] MED LIST changes: +ALENDRONATE SOD70 MG PO; +CARAFATE1 G/10 ML PO; +CYCLOBENZAPRINE10 MG PO; +MIRALAX17 GM PO; +NORCO 7.5/325 T1 TA1 PO; +NYSTATIN ORAL SU5 ML PO; +OXYCODONE HCL10 MG PO; +PROTONIX40 MG PO; +SPIRIVA18 MCG INH
== END | disposition home or self-care (01) ==
LOC: D.MRI 13:56
DX: M25.532 Pain in left wrist (principal)

== ENCOUNTER 2018-02-07 19:14 | Emergency (ER) | payer MEDICAID ==
[~2018-02-07] VITALS: Ht 154.9 cm; Wt 63.6 kg
[~2018-02-07 19:14] MED LIST changes: -CYCLOBENZAPRINE10 MG PO; -NORCO 7.5/325 T1 TA1 PO; -OXYCODONE HCL10 MG PO; -SPIRIVA18 MCG INH
[2018-02-07 19:48] VITALS: Ht 154.9 cm; Wt 63.6 kg
[2018-02-07] MEDS ORDERED: OXYCODONE HCL10 MG PO (22:44)
[2018-02-07 23:35] VITALS: BP 114/83
== END 2018-02-07 23:35 | disposition home or self-care (01) ==
LOC: D.ER 19:14
DX: G90.522 Complex regional pain syndrome I of left lower limb (principal)

== ENCOUNTER 2018-02-21 10:05 | Outpatient (CLI) | payer MEDICAID ==
[~2018-02-21] VITALS: Ht 160 cm; Wt 75.9 kg
[~2018-02-21 10:05] MED LIST changes: +OXYCODONE HCL10 MG PO
[2018-02-21 11:05] LABS: ANION GAP 8.1 mmol/L (8-16); CARBON DIOXIDE 33.9 mmol/L (21.0-32.0); CREATININE - SERUM 0.9 mg/dL (0.6-1.3)
[2018-02-21 11:28] VITALS: BP 101/58; Ht 160 cm; Wt 75.9 kg
[2018-02-21] MEDS ORDERED: SPIRIVA18 MCG INH (11:31)
[2018-02-21] MEDS ORDERED: CYCLOBENZAPRINE10 MG PO (11:35)
[2018-02-21] MEDS ORDERED: NORCO 7.5/325 T1 TA1 PO (11:35)
== END 2018-02-21 20:01 | disposition home or self-care (01) ==
LOC: D.OPS 10:05 → D.CATH 11:00 → D.CLR 11:23 → D.OPS 20:01
PROVIDERS: Internal Medicine Interventional Cardiology
DX: I50.9 Heart failure, unspecified (principal); I42.9 Cardiomyopathy, unspecified; Z01.812 Encounter for preprocedural laboratory examination

== ENCOUNTER → 2018-09-03 11:15 | Outpatient (CLI) | payer MEDICAID ==
[2018-02-21 11:28] VITALS: BMI 29.6
[~2018-09-03 11:15] MED LIST changes: +CYCLOBENZAPRINE10 MG PO; +NORCO 7.5/325 T1 TA1 PO; +SPIRIVA18 MCG INH
== END | disposition home or self-care (01) ==
LOC: D.RAD 11:15
DX: M25.532 Pain in left wrist (principal)

== ENCOUNTER 2018-12-05 14:07 | Inpatient (IN) | payer MEDICAID ==
[~2018-12-05] VITALS: Ht 160 cm; Wt 63.5 kg
[2018-12-05] MEDS ORDERED: HYDROCODON-ACE1 EA10 PO (14:21)
[2018-12-05] MEDS ORDERED: BUSPAR 15 MG TA15 MG PO (14:21)
--- NOTE | 2018-12-05 14:50 | NUR ---
PT TO ER#7. INITIALLY ON RA WITH SATS @ 91-92 % PLACED ON 2 L PNC AND IMMED INCREASED TO 94-96%
[2018-12-05 14:56] LABS: BASOPHILS 0.6 % (0-2); EOSINOPHILS 1.7 % (0-7); HEMATOCRIT 35.9 % (36.0-48.0); HEMOGLOBIN 12.1 g/dL (12-16); IMMATURE GRANULOCYTES 0.2 % (0-5); LYMPHOCYTES 25.1 % (15-50); MCH 31.2 pg (26.0-34.0); MCHC 33.7 g/dL (31.0-37.0); MCV 92.5 fL (80.0-100.0); MEAN PLATELET VOLUME 9.7 fL (7.4-10.4); MONOCYTES 11.7 % (2-11); NEUTROPHILS 60.7 % (40-80); PLATELET COUNT 150 10x3/uL (130-400); RBC 3.88 10x6/uL (4.00-5.40); RDW 14.1 % (11.5-14.5); WBC 4.6 10x3/uL (4.8-10.8)
[2018-12-05 15:00] VITALS: BP 141/71
[2018-12-05 15:08] LABS: INR 1.09 (0.85-1.17); PROTIME 13.6 SECONDS (11.6-15.0)
[2018-12-05 15:11] LABS: ALBUMIN 2.9 g/dL (3.4-5.0); ALKALINE PHOSPHATASE 113 U/L (46-116); ALT (SGPT) 32 U/L (10-68); BILIRUBIN - TOTAL 0.49 mg/dL (0.2-1.3); CALC OSMOLALITY 273 mosm/kg (275-300); CALCIUM 8.7 mg/dL (8.5-10.1); CARBON DIOXIDE 29.1 mmol/L (21.0-32.0); CHLORIDE - SERUM 99 mmol/L (98-107); CREATININE - SERUM 0.7 mg/dL (0.6-1.3); GLUCOSE 74 mg/dL (74-106); POTASSIUM - SERUM 3.8 mmol/L (3.5-5.1); PROTEIN - SERUM 6.8 g/dL (6.4-8.2); SODIUM 138 mmol/L (136-145); UREA NITROGEN 11 mg/dL (7-18); eGFR NON AFRICAN AMERICAN > 90 mL/min (90-120)
[2018-12-05 15:24] LABS: CKMB 1.4 U/L (0.0-3.6); CREATINE KINASE 91 UL (21-215); PRO BNP 907 pg/mL (0-125); TROPONIN-I < 0.017 ng/mL (0.000-0.060)
[2018-12-05 16:49] VITALS: BP 108/41
--- NOTE | 2018-12-05 17:23 | NUR ---
ROCEPHIN INFUSION COMPLETE AT THIS TIME.
[2018-12-05 17:26] VITALS: BP 98/41
--- NOTE | 2018-12-05 17:37 | NUR ---
REPORT CALLED TO CLIVE JONES BY SBAR FORMAT
[2018-12-05 17:45] VITALS: BP 100/47
--- NOTE | 2018-12-05 17:45 | NUR ---
PT TO FLOOR AT THIS TIME.
[2018-12-05] MEDS ORDERED: COMBIVENT RESPIM4 GM INH (18:21)
--- NOTE | 2018-12-05 19:15 | NUR ---
FOUND PATIENT IN ROOM 2214. O2 ON AT 2L/M PER NC. DIMINISHED BREATH SOUNDS BILAT. IV PATENT RT FOREARM OF NS AT 75CC'S/HR SITE CLEAR. SHORTNESS OF BREATH ON ERTION.
[2018-12-05 20:00] VITALS: BP 123/56
[2018-12-05 20:19] VITALS: BMI 24.8
--- NOTE | 2018-12-05 20:30 | NUR ---
C/O GENERALIZED PAIN BACK AND CHEST FROM COUGHING. NORCO 10/325MG TAB ONE PO GIVEN FOR PAIN CONTROL.
[2018-12-05] MEDS ORDERED: NITROQUICK0.4 MG SL (21:50)
--- NOTE | 2018-12-05 22:32 | NUR ---
C/O CHEST PRESSURE STATES NORMALLY TAKES A NITRO AT HOME. NITRO 0.4MG SUBL GIVEN FOR CHEST PRESSURE X1. NOTIFIED [place] SAM APN FOR DR. PEREZ. ORDERS REC'D.
--- NOTE | 2018-12-06 | NUR ---
RESTING QUIETLY HAS HAD UPDRAFT TX AT BEDSIDE PER RT TECH.
[2018-12-06 01:06] VITALS: BP 118/70
[2018-12-06 04:00] VITALS: BP 123/73
[2018-12-06 05:54] LABS: BASOPHILS 0 % (0-2); EOSINOPHILS 0 % (0-7); HEMATOCRIT 36.3 % (36.0-48.0); HEMOGLOBIN 12.3 g/dL (12-16); LYMPHOCYTES 17.3 % (15-50); MCH 30.8 pg (26.0-34.0); MCHC 33.9 g/dL (31.0-37.0); MEAN PLATELET VOLUME 9.9 fL (7.4-10.4); MONOCYTES 1.8 % (2-11); NEUTROPHILS 80.9 % (40-80); PLATELET COUNT 171 10x3/uL (130-400); RBC 3.99 10x6/uL (4.00-5.40); RDW 13.9 % (11.5-14.5); WBC 3.8 10x3/uL (4.8-10.8)
[2018-12-06 06:10] LABS: ALBUMIN 2.8 g/dL (3.4-5.0); ALKALINE PHOSPHATASE 109 U/L (46-116); ALT (SGPT) 34 U/L (10-68); BILIRUBIN - TOTAL 0.36 mg/dL (0.2-1.3); CALCIUM 8.8 mg/dL (8.5-10.1); CARBON DIOXIDE 24.3 mmol/L (21.0-32.0); CHLORIDE - SERUM 99 mmol/L (98-107); CREATININE - SERUM 0.6 mg/dL (0.6-1.3); PROTEIN - SERUM 6.7 g/dL (6.4-8.2); SODIUM 135 mmol/L (136-145); eGFR NON AFRICAN AMERICAN > 90 mL/min (90-120)
[2018-12-06 06:33] LABS: CALC OSMOLALITY 272 mosm/kg (275-300); GLUCOSE 130 mg/dL (74-106); UREA NITROGEN 16 mg/dL (7-18)
--- NOTE | 2018-12-06 08:00 | NUR ---
ASSESSMENT PER FLOW SHEET. PT IS WITHOUT DISTRESS. SHE IS VERY ANXIOUS AND TEARFUL THIS AM. CALL LIGHT IN REACH. AT BEDSIDE.
[2018-12-06 09:39] VITALS: BP 137/54
[2018-12-06 10:10] VITALS: Ht 160 cm; Wt 63.5 kg
[2018-12-06 13:08] VITALS: BP 118/58
--- NOTE | 2018-12-06 13:27 | NUR ---
PT IS WITHOUT DISTRESS.MONITOR FOR NEEDS
--- NOTE | 2018-12-06 15:34 | MORECARE ---
CASE MANAGEMENT DISCHARGE SUMMARY PATIENT: JEANETH FARRELL UNIT: [id number] ADM DATE: 12/05/18 AGE: 58 : 58 SEX: F ROOM/BED: D.2214 AUTHOR: ANJELICA CACERES PHYSICIAN: REFERRING PHYSICIAN: YULI PEREZ MD DATE OF SERVICE: 12/06/18 Discharge Plan Patient Name: JEANETH FARRELL Facility: [facility]:[place] : 1960 Planned Disposition: Home Anticipated Discharge Date: Discharge Date: Expected LOS: Initial Reviewer: [email or web address] Initial Review Date: 12/05/2018 Generated: 12/06/18 4:34 pm Comments DCP- Discharge Planning Updated by [email or web address]: Melina Ingram on 12/06/18 2:[address] Patient Name: JEANETH FARRELL Admission Status: ER Accout number: [id number] Admission Date: 12-05-2018 : 1960 Admission Diagnosis: Attending: YULI PEREZ Current LOS: 1 Anticipated DC Date: Planned Disposition: Home Primary Insurance: [place] PR[employer] [place]USEF Discharge Planning Comments: CM met with patient to complete initial dc planning assessment. CM educated patient on the CM role and verbal consent given by patient to complete assessment. Patient lives at home where she is independent with her care. At discharge patient plans to return home and feels this is a safe discharge. CM discussed availability of home health, rehab services, and medical equipment. She has a BSC and a walker at home. Patient denied known discharge needs at this time. CM will continue to follow and will assist as needed with dc plans/needs. Manager Plumbing: Melina Ingram DCPIA - Discharge Planning Initial Assessment Updated by [email or web address]: Melina Ingram on 12/06/18 3:29 pm * Is the patient Alert and Oriented? Yes * How many steps to enter\exit or inside your home? * PCP DR RAMOS * Pharmacy [facility] ([place]) * Preadmission Environment Home Alone * ADLs Independent * Equipment Bedside Commode Walker * List name and contact numbers for known caregivers / representatives who currently or will assist patient after discharge: GARETH [phone] * Verbal permission to speak to the caregivers and representatives has been obtained from the patient. Yes * Community resources currently utilized None * Additional services required to return to the preadmission environment? No * Can the patient safely return to the preadmission environment? Yes * Has this patient been hospitalized within the prior 30 days at any hospital? No Patient Name: JEANETH FARRELL Page [id number] at 1534 All edits/amendments must be made on the electronic document DICTATION DATE: 12/06/181532 UNDERWRITING CLERK: FRANCO 12/06/181532 RPT#: [id number] DC DATE: STATUS: ADM IN [facility] [address] [place] [address] END OF REPORT
[2018-12-06 16:03] VITALS: BP 120/62
--- NOTE | 2018-12-06 20:30 | NUR ---
PATIENT COMPLAINTS OF PAIN WHEN COUGHING. NORCO 10MG 1 TAB GIVEN PER REQUEST
[2018-12-06] MEDS ORDERED: PROTONIX40 MG PO (20:35)
--- NOTE | 2018-12-06 20:41 | NUR ---
WATCHING TV QUEITLY. NO DISTRESS NOTED.RESP UNLABORED. 02 @ 2L PER NC ON. IV INFUSING TO RFA WITHOUT REDNESS OR EDEMA NOTED. NO COMPLAITNS VOICED. CL IN REACH
[2018-12-06 20:49] VITALS: BP 127/76
--- NOTE | 2018-12-06 23:52 | NUR ---
I have reviewed this patient and I concur with the Shift Assessment completed by the Licensed Practical Nurse today this shift.
[2018-12-07 02:08] VITALS: BP 140/86
[2018-12-07 04:49] VITALS: BP 151/67
--- NOTE | 2018-12-07 08:00 | NUR ---
ASSESSMENT PER FLOW SHEE. PT IS WITHOUT DISTRESS.MONITOR FOR NEEDS.CALL LIGHT IN REACH
[2018-12-07 09:39] VITALS: BP 152/66
[2018-12-07 10:03] LABS: BASOPHILS 0 % (0-2); EOSINOPHILS 0 % (0-7); HEMATOCRIT 36.2 % (36.0-48.0); HEMOGLOBIN 12.5 g/dL (12-16); IMMATURE GRANULOCYTES 0.4 % (0-5); LYMPHOCYTES 7.6 % (15-50); MCH 30.9 pg (26.0-34.0); MCHC 34.5 g/dL (31.0-37.0); MCV 89.6 fL (80.0-100.0); MEAN PLATELET VOLUME 9.8 fL (7.4-10.4); RBC 4.04 10x6/uL (4.00-5.40); RDW 14.4 % (11.5-14.5)
[2018-12-07 10:12] LABS: CALCIUM 8.7 mg/dL (8.5-10.1); CARBON DIOXIDE 27.1 mmol/L (21.0-32.0); CHLORIDE - SERUM 100 mmol/L (98-107); CREATININE - SERUM 0.7 mg/dL (0.6-1.3); GLUCOSE 143 mg/dL (74-106); SODIUM 139 mmol/L (136-145); eGFR NON AFRICAN AMERICAN > 90 mL/min (90-120)
[2018-12-07 10:13] LABS: CALC OSMOLALITY 282 mosm/kg (275-300); POTASSIUM - SERUM 3.1 mmol/L (3.5-5.1); UREA NITROGEN 21 mg/dL (7-18)
[2018-12-07 10:22] LABS: PLATELET COUNT 207 10x3/uL (130-400); WBC 10.5 10x3/uL (4.8-10.8)
[2018-12-07 13:38] VITALS: BP 125/55
--- NOTE | 2018-12-07 14:16 | NUR ---
PAIN MEDS ORDERED FOR PAIN"ALL OVER". SEE MAR
--- NOTE | 2018-12-07 17:38 | NUR ---
REMAINS WITHOUT CHANGE FROM INITIAL SHIFT ASSESSMENT.CONT PLAN OF CARE
[2018-12-07 17:57] VITALS: BP 126/64
[2018-12-07 20:00] VITALS: BP 109/52
[2018-12-08] VITALS: BP 100/51
--- NOTE | 2018-12-08 05:07 | NUR ---
resting in bed with no needs noted or stated call light in reach.
[2018-12-08 05:59] LABS: BASOPHILS 0 % (0-2); EOSINOPHILS 0 % (0-7); HEMATOCRIT 35.4 % (36.0-48.0); IMMATURE GRANULOCYTES 0.5 % (0-5); LYMPHOCYTES 10.1 % (15-50); MCH 30.7 pg (26.0-34.0); MCHC 33.9 g/dL (31.0-37.0); MCV 90.5 fL (80.0-100.0); MEAN PLATELET VOLUME 10.2 fL (7.4-10.4); MONOCYTES 5.3 % (2-11); NEUTROPHILS 84.1 % (40-80); PLATELET COUNT 223 10x3/uL (130-400); RBC 3.91 10x6/uL (4.00-5.40); RDW 14.8 % (11.5-14.5); WBC 8.1 10x3/uL (4.8-10.8)
[2018-12-08 06:38] LABS: CALC OSMOLALITY 282 mosm/kg (275-300); CALCIUM 8.3 mg/dL (8.5-10.1); CARBON DIOXIDE 29.7 mmol/L (21.0-32.0); CHLORIDE - SERUM 101 mmol/L (98-107); CREATININE - SERUM 0.7 mg/dL (0.6-1.3); GLUCOSE 136 mg/dL (74-106); SODIUM 140 mmol/L (136-145); UREA NITROGEN 19 mg/dL (7-18); eGFR NON AFRICAN AMERICAN > 90 mL/min (90-120)
--- NOTE | 2018-12-08 08:25 | NUR ---
PT ALERT X 4. BREATH SOUNDS CLEAR BILAT, 4L O2 PER NC. IV TO RIGHT FOREARM, PATENT, DRESSING CDI. PT REPORTING PAIN OF 9/10, MEDICATED PER ORDERS, WILL MONITOR. FAMILY AT BEDSIDE. BED LOW, CALL LIGHT IN REACH. NO OTHER NEEDS AT THIS TIME.
[2018-12-08 08:49] VITALS: BP 124/59
[2018-12-08 13:39] VITALS: BP 145/83
[2018-12-08 17:09] VITALS: BP 109/57
--- NOTE | 2018-12-08 18:23 | NUR ---
PT STATES SHE HAS HAD A PRODUCTIVE COUGH OF YELLOW GREEN SPUTUM THROUGHOUT DAY
--- NOTE | 2018-12-08 19:38 | NUR ---
RESTING IN BED WITH NO NOTED OR STATED NEEDS CALL LIGHT IN REACH FLUIDS IN REACH.
[2018-12-08 20:18] VITALS: BP 115/46
[2018-12-09 02:08] VITALS: BP 112/60
[2018-12-09 05:34] VITALS: BP 147/78
[2018-12-09 06:16] LABS: BASOPHILS 0.1 % (0-2); EOSINOPHILS 0 % (0-7); HEMATOCRIT 33.7 % (36.0-48.0); HEMOGLOBIN 11.5 g/dL (12-16); LYMPHOCYTES 7.6 % (15-50); MCH 31.1 pg (26.0-34.0); MCHC 34.1 g/dL (31.0-37.0); MCV 91.1 fL (80.0-100.0); MONOCYTES 5.5 % (2-11); NEUTROPHILS 85.8 % (40-80); PLATELET COUNT 198 10x3/uL (130-400); RDW 14.8 % (11.5-14.5); WBC 9.4 10x3/uL (4.8-10.8)
[2018-12-09 06:33] LABS: ANION GAP 13.5 mmol/L (8-16); CALCIUM 8.4 mg/dL (8.5-10.1); CARBON DIOXIDE 27.8 mmol/L (21.0-32.0); CREATININE - SERUM 0.9 mg/dL (0.6-1.3); POTASSIUM - SERUM 3.3 mmol/L (3.5-5.1)
[2018-12-09 08:57] VITALS: BP 124/59
--- NOTE | 2018-12-09 09:31 | NUR ---
PT ALERT X 4. BREATH SOUNDS CLEAR BILAT, 2L O2 PER NC. IV TO RIGHT FOREARM, REDDENED, WILL RESITE. PAIN OF 8/10, WILL MONITOR. BED LOW, CALL LIGHT IN REACH. NO OTHER NEEDS AT THIS TIME.
[2018-12-09 12:26] VITALS: BP 98/44
[2018-12-09 17:49] VITALS: BP 103/43
--- NOTE | 2018-12-09 19:56 | NUR ---
resting in bed with T.V. on talking on phone. no s/s of distress call light and fluids in reach.I.V. in right fore arm with ns with 20 of K at 75ml/hr intact. no stated or noted needs at this time. Did state that her mouth was starting to get soroe a little. educated to rinse out mouth after updrafts and inhaliers. She ask for and given a figueroa to spit in when she does. educated that will pass on in shift report and for to talk with MD in am as she did not feel the need for staff to call MD at this time.
[2018-12-09 20:00] VITALS: BP 107/49
[2018-12-10 03:56] LABS: BASOPHILS 0.1 % (0-2); EOSINOPHILS 0 % (0-7); HEMATOCRIT 33.2 % (36.0-48.0); HEMOGLOBIN 11.2 g/dL (12-16); IMMATURE GRANULOCYTES 3.3 % (0-5); LYMPHOCYTES 6.8 % (15-50); MCH 30.7 pg (26.0-34.0); MCHC 33.7 g/dL (31.0-37.0); MONOCYTES 4.7 % (2-11); NEUTROPHILS 85.1 % (40-80); PLATELET COUNT 174 10x3/uL (130-400); RBC 3.65 10x6/uL (4.00-5.40); RDW 14.8 % (11.5-14.5); WBC 11.3 10x3/uL (4.8-10.8)
[2018-12-10 04:04] LABS: ANION GAP 12.8 mmol/L (8-16); CALCIUM 8.3 mg/dL (8.5-10.1); CARBON DIOXIDE 29.6 mmol/L (21.0-32.0); POTASSIUM - SERUM 3.4 mmol/L (3.5-5.1)
[2018-12-10 04:30] VITALS: BP 116/51
[2018-12-10 07:56] VITALS: BP 142/78
--- NOTE | 2018-12-10 09:11 | NUR ---
PT ALERT X 4. BREATH SOUNDS CLEAR BILAT. IV TO RIGHT FOREARM, PATENT, DRESSING CDI. PT REPORTING PAIN OF 8/10, MEDICATED PER ORDERS, WILL MONITOR. BED LOW, CALL LIGHT IN REACH. NO OTHER NEEDS AT THIS TIME.
[2018-12-10 12:37] VITALS: BP 132/67
[2018-12-10 17:23] VITALS: BP 126/60
--- NOTE | 2018-12-10 20:00 | NUR ---
PT SITTING UP IN BED, NO SIGNS OF DISTRESS. ALERT AND ORIENTED. IV RIGHT FA INFUSING NS W/ 20K+ @ 75. NO REDNESS OR SWELLING AT INSERTION SITE. LUNG SOUNDS CLEAR. STATES PAIN IN BACK AND LEGS 03/02. GAVE NORCO ORDERED. CL IN REACH, WILL CONT TO MONITOR
[2018-12-10 21:24] VITALS: BP 113/60
[2018-12-11 01:28] VITALS: BP 123/68
[2018-12-11 05:34] VITALS: BP 143/82
[2018-12-11 06:37] LABS: BASOPHILS 0.1 % (0-2); EOSINOPHILS 0.1 % (0-7); HEMATOCRIT 35.6 % (36.0-48.0); IMMATURE GRANULOCYTES 4.7 % (0-5); MCH 30.8 pg (26.0-34.0); MCHC 33.7 g/dL (31.0-37.0); MCV 91.5 fL (80.0-100.0); MEAN PLATELET VOLUME 10.6 fL (7.4-10.4); MONOCYTES 4.4 % (2-11); NEUTROPHILS 84.7 % (40-80); PLATELET COUNT 203 10x3/uL (130-400); RBC 3.89 10x6/uL (4.00-5.40); RDW 15.2 % (11.5-14.5); WBC 14.1 10x3/uL (4.8-10.8)
[2018-12-11 06:44] LABS: ANION GAP 12.8 mmol/L (8-16); CALCIUM 8.1 mg/dL (8.5-10.1); CARBON DIOXIDE 30.4 mmol/L (21.0-32.0); CREATININE - SERUM 0.9 mg/dL (0.6-1.3); POTASSIUM - SERUM 3.2 mmol/L (3.5-5.1)
--- NOTE | 2018-12-11 07:40 | NUR ---
PT RESTING QUIETLY IN BED. NO ACUTE DISTRESS NOTED. PT REPORTS GENERALIZED PAIN 8/10 AT THIS TIME WITH ANXIETY. PT REQUEST ATIVAN AT THIS TIME. IV TO RIGHT FOREARM WITH NS WITH 20KCL @ 75ML/HR INFUSING VIA PUMP. SITE WITHOUT REDNESS OR EDEMA. DENIES FURTHER NEEDS AT THIS TIME. CL WITHIN REACH. ENOCOURAGED TO CALL WITH NEEDS. CONTINUE POC
[2018-12-11 08:38] VITALS: BP 124/73
[2018-12-11 13:07] VITALS: BP 127/67
--- NOTE | 2018-12-11 15:00 | NUR ---
PT IV TO RIGHT FOREARM WITH SWELLING AND PAIN TO SITE. IV D/C'D, CATH INTACT. RESITED IV TO RIGHT FOREARM X 2 STICKS. GOOD BLOOD RETURN EASILY FLUSHES. PT KELVIN WELL
[2018-12-11 16:40] VITALS: BP 102/46
--- NOTE | 2018-12-11 22:00 | NUR ---
AWAKE,ALERT.RESP EVEN AND UNLAOBRED. NO DISTRESS NOTED.IV TO RFA WITHOUT REDNESS NOTED. CL IN REACH
[2018-12-12] VITALS: BP 120/50
[2018-12-12 04:30] VITALS: BP 150/74
--- NOTE | 2018-12-12 04:54 | NUR ---
I have reviewed this patient and I concur with the Shift Assessment completed by the Licensed Practical Nurse today this shift.
[2018-12-12 04:55] LABS: BASOPHILS 0.1 % (0-2); EOSINOPHILS 0.1 % (0-7); HEMATOCRIT 33.7 % (36.0-48.0); HEMOGLOBIN 11.4 g/dL (12-16); IMMATURE GRANULOCYTES 5.3 % (0-5); LYMPHOCYTES 5.4 % (15-50); MCH 30.6 pg (26.0-34.0); MCHC 33.8 g/dL (31.0-37.0); MCV 90.3 fL (80.0-100.0); MEAN PLATELET VOLUME 10.1 fL (7.4-10.4); MONOCYTES 5.6 % (2-11); NEUTROPHILS 83.5 % (40-80); PLATELET COUNT 186 10x3/uL (130-400); RBC 3.73 10x6/uL (4.00-5.40); RDW 15.1 % (11.5-14.5); WBC 14.2 10x3/uL (4.8-10.8)
[2018-12-12 05:08] LABS: ANION GAP 9.3 mmol/L (8-16); CALCIUM 7.6 mg/dL (8.5-10.1); CARBON DIOXIDE 33.4 mmol/L (21.0-32.0); CREATININE - SERUM 0.9 mg/dL (0.6-1.3)
[2018-12-12 05:16] LABS: POTASSIUM - SERUM 2.7 mmol/L (3.5-5.1)
--- NOTE | 2018-12-12 07:40 | NUR ---
PT SITTING UP IN BED WATCHING TV. NO ACUTE DISTRESS NOTED. RESP EVEN AND UNLABORED. IV TO RIGHT FOREARM WITH NS WITH 20KCL@ 75ML/HR INFUSING VIA PUMP. SITE WITHOUT REDNESS OR EDEMA. REPORTS PAIN 8/10 AT THIS TIME. DISCUSSED NEXT TIME PAIN MEDICATION DUE. PT VOICES UNDERSTANDING. DENIES FURTHER NEEDS AT THIS TIME. CL WITHIN REACH. ENCOURAGED TO CALL WITH NEEDS. CONTINUE POC
[2018-12-12 09:22] VITALS: BP 127/59
--- NOTE | 2018-12-12 12:57 | NUR ---
NUTRITION F/U CHART REVIEWED. PT TOLERATING AHA DIET WITH GOOD INTAKE. CONTINUES TO BE ASSESSED AT LOW NUTRITIONAL RISK. RD FOLLOWING
[2018-12-12 14:56] VITALS: BP 113/63
[2018-12-12 15:01] VITALS: BP 92/52
--- NOTE | 2018-12-12 15:21 | NUR ---
PATIENT WALKED ON AND 02 SAT OF 96%
[2018-12-12 20:00] VITALS: BP 123/57
--- NOTE | 2018-12-12 20:28 | NUR ---
SITTING UP IN BED VISITING WITH FAMILY. NO COMPLAITNS VOICED. NO DISTRESS NOTED. CL IN REACH
[2018-12-13] VITALS: BP 113/49
--- NOTE | 2018-12-13 03:04 | NUR ---
I have reviewed this patient and I concur with the Shift Assessment completed by the Licensed Practical Nurse today this shift.
[2018-12-13 04:00] VITALS: BP 142/85
[2018-12-13 05:34] LABS: BASOPHILS 0.1 % (0-2); EOSINOPHILS 0.7 % (0-7); HEMATOCRIT 34.6 % (36.0-48.0); HEMOGLOBIN 11.4 g/dL (12-16); IMMATURE GRANULOCYTES 6.8 % (0-5); LYMPHOCYTES 17.6 % (15-50); MCH 30.5 pg (26.0-34.0); MCHC 32.9 g/dL (31.0-37.0); MEAN PLATELET VOLUME 10.7 fL (7.4-10.4); MONOCYTES 7.5 % (2-11); NEUTROPHILS 67.3 % (40-80); PLATELET COUNT 184 10x3/uL (130-400); RBC 3.74 10x6/uL (4.00-5.40); RDW 15.6 % (11.5-14.5); WBC 13.4 10x3/uL (4.8-10.8)
[2018-12-13 05:37] LABS: MCV 92.5 fL (80.0-100.0)
[2018-12-13 05:39] LABS: ANION GAP 10.2 mmol/L (8-16); CALCIUM 7.5 mg/dL (8.5-10.1); POTASSIUM - SERUM 3.2 mmol/L (3.5-5.1)
--- NOTE | 2018-12-13 06:19 | NUR ---
POTASSIUM RESULTS CALLED TO JOINERY MACHINIST. STATES "THIS IS NOT CRITICAL SO WHY AM I BEING CALLED?NO NEW ORDERS RECEIVED.
--- NOTE | 2018-12-13 07:55 | NUR ---
PT SETTING UP IN BED WATCHING TV. FAMILY AT BEDSIDE. NO ACUTE DISTRESS NOTED AT THIS TIME. IV TO RIGHT FOREARM WITH NS W/ 20KCL @ 75ML/HR INFUSING VIA PUMP. SITE WITHOUT REDNESS OR EDEMA. REPORTS PAIN / AT THIS TIME, DISCUSSED NEXT DOSE DUE WITH PT. VOICES UNDERSTANDING. DENIES FURTHER NEEDS AT THIS TIME. ENCOURAGED TO CALL WITH NEEDS. CL WITHIN REACH. CONTINUE POC
[2018-12-13] MEDS ORDERED: LASIX40 MG PO (08:24)
[2018-12-13] MEDS ORDERED: K-DUR20 MEQ PO (08:25)
[2018-12-13] MEDS ORDERED: VALTREX1000 MG PO (08:26)
[2018-12-13] MEDS ORDERED: OMNICEF300 MG PO (08:27)
[2018-12-13 09:00] VITALS: BP 125/56
--- NOTE | 2018-12-13 09:28 | MORECARE ---
CASE MANAGEMENT DISCHARGE SUMMARY PATIENT: JEANETH FARRELL UNIT: [id number] ADM DATE: 12/05/18 AGE: 58 : 58 SEX: F ROOM/BED: D.2214 AUTHOR: ANJELICA CACERES PHYSICIAN: REFERRING PHYSICIAN: YULI PEREZ MD DATE OF SERVICE: 12/13/18 Discharge Plan Patient Name: JEANETH FARRELL Facility: [facility]:[place] : 1960 Planned Disposition: Home Anticipated Discharge Date: Discharge Date: Expected LOS: Initial Reviewer: [email or web address] Initial Review Date: 12/05/2018 Generated: 12/13/18 10:28 am Comments DCP- Discharge Planning Updated by [email or web address]: Melina Ingram on 12/13/18 8:[address] Patient Name: JEANETH FARRELL Encounter No: [id number] : 1960 Primary Insurance: [employer] [place] PRIVATE OPTIONS YUSEF Anticipated DC Date: Planned Disposition: Home External Planned Provider: : DCP follow-up note: Patient and family in agreement with discharge plan. Patient had a walk test yesterday and was 96% on room air so will not need home O2 & per Tam COLOR LABORATORY TECHNICIAN she has a nebulizer at home. No changes to plan. Case management will follow and assist as needed. Melina Ingram DCP- Discharge Planning Updated by [email or web address]: Melina Ingram on 12/06/18 2:[address] Patient Name: JEANETH FARRELL Admission Status: ER Accout number: [id number] Admission Date: 12-05-2018 : 1960 Admission Diagnosis: Attending: YULI PEREZ Current LOS: 1 Anticipated DC Date: Planned Disposition: Home Primary Insurance: [employer] PRIVATE OPTIONS YUSEF Discharge Planning Comments: CM met with patient to complete initial dc planning assessment. CM educated patient on the CM role and verbal consent given by patient to complete assessment. Patient lives at home where she is independent with her care. At discharge patient plans to return home and feels this is a safe discharge. CM discussed availability of home health, rehab services, and medical equipment. She has a BSC and a walker at home. Patient denied known discharge needs at this time. CM will continue to follow and will assist as needed with dc plans/needs. Tube Inspector: Melina Ingram DCPIA - Discharge Planning Initial Assessment Updated by [email or web address]: Melina Ingram on 12/06/18 3:29 pm * Is the patient Alert and Oriented? Yes * How many steps to enter\exit or inside your home? * PCP DR RAMOS * Pharmacy [facility] ([place]) * Preadmission Environment Home Alone * ADLs Independent * Equipment Bedside Commode Walker * List name and contact numbers for known caregivers / representatives who currently or will assist patient after discharge: GARETH [phone] * Verbal permission to speak to the caregivers and representatives has been obtained from the patient. Yes * Community resources currently utilized None * Additional services required to return to the preadmission environment? No * Can the patient safely return to the preadmission environment? Yes * Has this patient been hospitalized within the prior 30 days at any hospital? No Last DP export: 12/06/18 2:34 p Patient Name: JEANETH FARRELL Page [phone] at 0928 All edits/amendments must be made on the electronic document DICTATION DATE: 12/13/18927 TECHNICAL PROPOSAL WRITER: FRANCO 12/13/18927 RPT#: [id number] DC DATE: STATUS: ADM IN [facility] [address] [place] [address] END OF REPORT
--- NOTE | 2018-12-13 10:50 | NUR ---
PT DISCHARGE INFORMATION PROVIDED TO PT. PRESCRIPTIONS PROVIDED. DISCUSSED MEDICATIONS, FOLLOW UP APPTS. DENIES QUESTIONS. IV D/C'D FROM RT FOREARM, CATH INTACT.
--- NOTE | 2018-12-13 12:11 | NUR ---
PT TAKEN OUT VIA W/C TO PVT VEHICLE WITH ALL PERSONAL BELONGINGS.
== END 2018-12-13 12:12 | disposition home or self-care (01) | DRG 194 ==
LOC: D.ER 14:07 → D.MS 16:27
PROVIDERS: Family Medicine; ADMIT Legal Medicine; ATTEND Legal Medicine
DX: J18.9 Pneumonia, unspecified organism (principal); I50.22 Chronic systolic (congestive) heart failure; B37.0 Candidal stomatitis; I11.0 Hypertensive heart disease with heart failure; D64.9 Anemia, unspecified; E87.6 Hypokalemia; F32.9 Major depressive disorder, single episode, unspecified; E78.5 Hyperlipidemia, unspecified; I25.10 Atherosclerotic heart disease of native coronary artery without angina pectoris

== ENCOUNTER 2018-12-23 00:10 | Emergency (ER) | payer MEDICAID ==
[~2018-12-23 00:10] MED LIST changes: +BUSPAR 15 MG TA15 MG PO; +HYDROCODON-ACE1 EA10 PO; +NITROQUICK0.4 MG SL; +OMNICEF300 MG PO; +VALTREX1000 MG PO
[2018-12-23 00:24] VITALS: BMI 28.4
[2018-12-23 00:52] LABS: BASOPHILS 0.1 % (0-2); HEMATOCRIT 35.5 % (36.0-48.0); HEMOGLOBIN 12.1 g/dL (12-16); IMMATURE GRANULOCYTES 0.4 % (0-5); LYMPHOCYTES 26.4 % (15-50); MCH 31.3 pg (26.0-34.0); MCHC 34.1 g/dL (31.0-37.0); MCV 91.7 fL (80.0-100.0); MEAN PLATELET VOLUME 10.2 fL (7.4-10.4); MONOCYTES 11.5 % (2-11); NEUTROPHILS 60.6 % (40-80); PLATELET COUNT 142 10x3/uL (130-400); RBC 3.87 10x6/uL (4.00-5.40); RDW 14.9 % (11.5-14.5)
[2018-12-23 01:05] LABS: INR 1.11 (0.85-1.17); PROTIME 13.8 SECONDS (11.6-15.0)
[2018-12-23 01:15] LABS: ALBUMIN 3.1 g/dL (3.4-5.0); ALKALINE PHOSPHATASE 94 U/L (46-116); ALT (SGPT) 28 U/L (10-68); BILIRUBIN - TOTAL 0.38 mg/dL (0.2-1.3); CALC OSMOLALITY 285 mosm/kg (275-300); CALCIUM 8.6 mg/dL (8.5-10.1); CARBON DIOXIDE 27.3 mmol/L (21.0-32.0); CHLORIDE - SERUM 107 mmol/L (98-107); CKMB 0.6 U/L (0.0-3.6); CREATINE KINASE 38 UL (21-215); CREATININE - SERUM 1.2 mg/dL (0.6-1.3); GLUCOSE 100 mg/dL (74-106); MAGNESIUM - SERUM 1.7 mg/dL (1.8-2.4); PROTEIN - SERUM 6.5 g/dL (6.4-8.2); SODIUM 143 mmol/L (136-145); TROPONIN-I < 0.017 ng/mL (0.000-0.060); UREA NITROGEN 15 mg/dL (7-18); eGFR NON AFRICAN AMERICAN 49 mL/min (90-120)
[2018-12-23 04:40] VITALS: BP 115/70
== END 2018-12-23 04:40 | disposition home or self-care (01) ==
LOC: D.ER 00:10
PROVIDERS: Family Medicine
DX: R07.9 Chest pain, unspecified (principal)

== ENCOUNTER 2019-02-28 19:08 | Observation (INO) | payer MEDICAID ==
[2019-02-28] VITALS (8 sets, daily range): BP systolic 108–131; BP diastolic 47–70
[~2019-02-28] VITALS: Ht 160 cm; Wt 72.7 kg
--- NOTE | ~2019-02-28 | HP ---
PATIENT: JEANETH FARRELL MEDICAL RECORD: [id number] ACCOUNT: [id number] LOCATION:[address] : 58 ADMISSION DATE: 02/28/19 PCP: MAGDALENA RAMOS MD HISTORY AND PHYSICAL EXAMINATION DIAGNOSES: 1. Unstable angina class IV. 2. Coronary artery disease. 3. Hypertension. 4. Hyperlipidemia. 5. Chronic obstructive pulmonary disease. 6. Smoking history. HISTORY OF PRESENT ILLNESS: Mrs. Farrell presents with 2 weeks of increasing episodes of chest pain. Her chest pain is increased to the point of multiple episodes at rest. She is taking multiple sublingual nitros. This morning while discussing her situation with her, she is still having 5/10 chest pain. She does have a history of coronary artery disease. Last cardiac stent was approximately 4 years ago. Her chest pain that she is having now is just like that of her previous angina prior to the stent that was relieved after the stent with chest heaviness that radiates to her back and her jaw. She is on Imdur. Her heart rates in the 60s and systolic blood pressure is 110. Hence, further medical management is not available due to her heart rate and blood pressure. PHYSICAL EXAMINATION: CONSTITUTIONAL/GENERAL APPEARANCE: Well nourished, well developed, appears stated age. Level of distress, comfortable. EYES: Lids and conjunctivae noninjected. No discharge. No pallor. ENT: Lips within normal limit. No cyanosis. No pallor. NECK: Carotid arteries, bilateral normal upstroke. No bruits. No thrills. No jugular venous pressure or distention. CERVICAL LYMPH NODES: Nontender. Nonenlarged. THYROID: Not enlarged. No nodules. CARDIOVASCULAR: Precordial exam, nondisplaced. No heaves or pericardial thrills. Rate and rhythm, regular. Heart sounds, normal S1, normal S2. No S3, no gallop, no rub. Systolic murmur, not heard. Diastolic murmur, not heard. RESPIRATORY: Respiratory effort, unlabored. Normal curvature. No thoracic deformity. No chest wall tenderness. Percussion, resonant. Auscultation, clear. No wheezes, no rales, no rhonchi. ABDOMEN: Soft, nondistended, nontender. MUSCULOSKELETAL: No joint tenderness, normal gait, normal tone. SKIN: Warm and dry. OVERALL IMPRESSION: Unstable angina, class IV symptomatology with continued 5/10 chest discomfort on maximal medical therapy for her heart rate and blood pressure. It is just like that of her previous angina and a history of multivessel PTCA stent. We will proceed with repeat coronary angiography. Further care depends upon the findings of the angiography. TRANSINT:[id number] Voice Confirmation ID: [id number] DOCUMENT ID: [id number] HISTORY AND PHYSICAL [id number] JEANETH FARRELL JEFFREY MD CC: [id number] DICTATION DATE: 03/01/19837 GREENSKEEPER SUPERVISOR: 03/01/19845 ADM IN [facility] [address] [id number]
--- NOTE | ~2019-02-28 | OP ---
PATIENT NAME: JEANETH FARRELL MEDICAL RECORD: [id number] :58 LOCATION:D.M2 D.2118 ADMISSION DATE:02/28/19 SURGEON: JANNA WONG MD DATE OF OPERATION: 03/01/2019 DATE OF SERVICE: 03/01/2019 PROCEDURES: 1. PTCA stent LAD. 2. IFR. 3. Left heart catheterization. 4. Selective coronary angiography. 5. Left ventriculogram. INDICATION: Angina and coronary artery disease. PROCEDURE IN DETAIL: After informed consent was obtained and after a detailed description of risks, benefits as well as alternative therapies, the patient elected to proceed with angiogram and angioplasty. The right radial area was prepped and draped in normal sterile fashion. Right radial artery was cannulated via modified Seldinger technique with placement of 6-Guyanese sheath. All catheters exchanged through this sheath. FINDINGS: The left ventriculogram was performed in standard 30-degree FIGUEROA view reveals good wall motion throughout all segments. Overall ejection fraction estimated at 60%. SELECTIVE CORONARY ANGIOGRAPHY: 1. Left main is with no significant angiographic disease. 2. Left anterior descending has previously placed stents with 70% in-stent restenosis and IFR was abnormal at 0.81. 3. Left circumflex has mild irregularities, but no flow-limiting stenosis. 4. Right coronary has mild irregularities, but no flow-limiting stenosis. PTCA STENT OF THE LAD: The stent used was 3.0 x 15 mm [place]. Result was 0% residual stenosis. OVERALL IMPRESSION: Successful percutaneous transluminal coronary angioplasty stent of the left anterior descending going from 70% in-stent restenosis with an abnormal IFR to 0% residual. TRANSINT:[id number] Voice Confirmation ID: [id number] DOCUMENT ID: [id number] JNANA WONG MD CC: [id number] DICTATION DATE: 03/01/19 1558 CLINICAL PHARMACIST: 03/01/19 1635 ADM IN [facility] [id number] [place] [address]
--- NOTE | ~2019-02-28 | HEMODYNAMI ---
PATIENT:JEANETH FARRELL MEDICAL RECORD: [id number] : 58 LOCATION:[facility] D.2118 [facility]# [id number] ADMISSION DATE: 02/28/19 Generatedon:03/01/201915:56 Patient name: JEANETH FARRELL Patient #: [id number] : 1960 Date of study: 03/01/2019 Page: Of Hemodynamic Procedure Report Patient Data Patient Demographics Procedure consent was obtained First Name: JEANETH Gender: Female Last Name: JAMI : 1960 Middle Initial: A Age: 59 year(s) Patient #: [id number] Race: SSN: [id number] Additional ID: [id number] Contact details Address: [address] [place] [address] State: [place] City: [facility] [place] [place] Zip code: [address] Admission Admission Data Admission Date: 02/28/2019 Admission Time: 22:11 Arrival Date: 03/01/2019 Arrival Time: 22:11 Admit Source: Emergency Insurance Payor: Private department health insurance Room #: D.2118 Height (in.): 62.99 BSA: 1.76 (m2) Height (cm.): 160 BMI: 28.52 (kg/m2) Weight (lbs.): 160.94 Weight (kg.): 73 Lab Results Lab Result Date: 03/01/2019 Lab Result Time: 0:00 Biochemistry Name Units Result Min Max BUN mg/dl 16 --(---*)-- 7 18 Creatinine mg/dl 0.6 --(*---)-- 0.6 1.3 CBC Name Units Result Min Max Hemoglobin g/dl 12.9 -*(----)-- 13.5 17.5 Procedure Procedure Types Cath Procedure Diagnostic Procedure [facility] w/Coronaries FFR/IVUS Intra-Coronary IVUS Initial PCI Procedure Coronary Stent Coronary Stent Initial Procedure Description Procedure Date Procedure Date: 03/01/2019 Procedure Start Time: 15:37 Procedure End Time: 15:54 Procedure Staff Name Function Abby Eubanks RT Monitor Rose Rodriguez RT Scrub Joce Lyle RN Nurse Arsh Alvarez RT Scrub Domenic Aldrich MD Performing Physician Indication Unstable angina Procedure Data Cath Procedure Fluoroscopy Diagnostic fluoroscopy Total fluoroscopy Time: 3.7 time: 3.7 min min Diagnostic fluoroscopy Total fluoroscopy dose: 741 dose: 741 mGy mGy Contrast Material Contrast Material Type Amount (ml) Isovue 300 87 Entry Location Entry Primary Successful Side Size Upsize Upsize Entry Closure Succes sful Closure Location (Fr) 1 (Fr) 2 (Fr) Remarks Device Remarks Femoral Right 5 Fr Exoseal artery Estimated blood loss: 5 ml Diagnostic catheters Device Type Used For End Catheter Placement MULTIPACK Pigtail 5 Fr LV Angiography catheter MULTIPACK JL 4.0 5Fr Left Coronary catheter Angiography MULTIPACK 3DRC 5Fr Right Coronary catheter Angiography Procedure Complications No complications Procedure Medications Medication Administration Route Dosage 0.9% NaCl I.V. 100 ml/hr Oxygen etCO2 Nasal cannula 2 l/min Heparin Flush Bag added to field 2 bags (1000units/500ml NS) Lidocaine 2% added to field 20 Versed I.V. 2 mg Fentanyl I.V. 100 mcg Versed I.V. 2 mg Fentanyl I.V. 100 mcg Versed I.V. 2 mg Heparin Bolus I.V. 4000 units Hemodynamics Rest BSA: 1.76 (m2) HGB: 12.9 (g/dl) O2 Consumption: Estimated: 172.53 (ml/min) O2 Co nsumption indexed: Estimated:98.03 (ml/min/m) Heart Rate: 79 (bpm) Pressure Samples Time Site Value (mmHg) Purpose Heart Use Rate(bpm) 15:39 LV 123/76,91 Snapshot 78 Snapshots Pre Cath Intra NCS Post Cath Vital Signs Time Heart Resp SPO2 etCO2 NIBP (mmHg) Rhythm Pain Sedation Rate (ipm) (%) (mmHg) Status Level (bpm) 15:15:58 82 16 100 24.7 132/65(99) NSR 0 (11) 10(A) , No pain 15:20:00 80 15 100 20.2 133/73(102) NSR 0 (11) 10(A) , No pain 15:24:01 83 15 100 29.9 129/69(102) NSR 0 (11) 10(A) , No pain 15:28:03 80 17 100 32.9 130/69(92) NSR 0 (11) 10(A) , No pain 15:32:07 81 13 100 25.4 117/64(92) NSR 0 (11) 10(A) , No pain 15:36:54 84 19 99 24.7 115/51(61) NSR 0 (11) 10(A) , No pain 15:47:00 91 11 100 35.9 114/60(83) NSR 0 (11) 10(A) , No pain 15:51:45 101 12 99 32.9 123/60(76) NSR 0 (11) 10(A) , No pain Medications Time Medication Route Dose Verified Delivered Reason Notes Effectiveness by by 15:14:40 0.9% NaCl I.V. 100 Joce Joce Per physician ml/hr Valdo Lyle RN RN 15:15:12 Oxygen etCO2 2 Joce Joce for low 02 sats Nasal l/min Valdo Lyle cannula RN RN 15:15:22 Heparin Flush added 2 Joce Joce used for Bag to bags Valdo Lyle procedure (1000units/500ml RN RN NS) 15:15:32 Lidocaine 2% added 20ml Joce Joce for local to vial Valdo Lyle anesthetic field RN RN 15:33:06 Versed I.V. 2 mg Joce Joce for sedation Valdo Lyle RN RN 15:33:14 Fentanyl I.V. 100 Joce Joce for sedation mcg Valdo Lyle RN RN 15:38:29 Versed I.V. 2 mg Joce Joce for sedation Valdo Lyle RN RN 15:38:34 Fentanyl I.V. 100 Joce Joce for sedation mcg Valdo Lyle RN RN 15:39:42 Versed I.V. 2 mg Joce Joce for sedation Valdo Lyle RN RN 15:47:52 Heparin Bolus I.V. 4000 Joce Joce for units Valdo Lyle anticoagulation RN travel accommodations rater Log Time Note 14:54:52 Informed consent obtained and on chart 14:56:23 Admit Source: Emergency department 14:56:44 Arrival Date: 03/01/2019 10:11:00 PM 14:56:51 Insurance Payor : Private health insurance 14:56:56 Patient Height : 62.99 inches 14:57:02 Patient Weight : 160.94 lbs 14:59:30 Lab Result : Hemoglobin 12.9 g/dl 14:59:30 Lab Result : Creatinine 0.6 mg/dl 14:59:30 Lab Result : BUN 16 mg/dl 14:59:40 Diagnostic Cath Status : Elective 15:01:33 Indication : Unstable angina 15::42 ACC Patient presents with Unstable Angina CCS Anginal Class 4--Inability to carry out any physical activity w/o angina. Angina may occur at rest. 15:01:54 ACCPatient has been prescribed/administered the following anti-anginal medication within the last 2 weeks: Long-Acting Nitrates 15::59 Procedure Status Urgent Heart Cath (IP). 15:02:02 Joce Lyle RN sent for patient. Start room use. 15:02:03 Time tracking: Regular hours (M-F 7:00 - 5:00) 15:02:08 Plan of Care:Hemodynamics will remain stable., Cardiac rhythm will remain stable., Comfort level will be maintained., Respiratory function will remain adequate., Patient/ family verbilizes understanding of procedure., Procedure tolerated without complication., Recovers from procedure without complications.. 15:05:47 Patient received from Med II to [facility] 2 Alert and oriented. Tansferred to table in Supine position. 15:05:48 Warm blankets applied, and latha hugger turned on for patient comfort. 15:05:48 Correct patient and procedure confirmed by team. 15:05:49 ECG and BP/O2 sat monitors applied to patient. 15:14:40 0.9% NaCl 100 ml/hr I.V. was administered by Joce Lyle RN; Per physician; 15:14:58 Vital chart was started 15:15:12 Oxygen 2 l/min etCO2 Nasal cannula was administered by Joce Lyle RN; for low 02 sats; 15:15:22 Heparin Flush Bag (1000units/500ml NS) 2 bags added to field was administered by Joce Lyle RN; used for procedure; 15:15:32 Lidocaine 2% 20ml vial added to field was administered by Joce Lyle RN; for local anesthetic; 15:16:15 Baseline sample Acquired. 15:16:20 Rhythm: sinus rhythm 15:16:22 Full Disclosure recording started 15:16:25 H&P Date Dictated: 03/01/2019 New H&P dictated by physician.. 15:16:27 Pre-procedure instructions explained to patient. 15:16:27 Pre-op teaching completed and patient verbalized understanding. 15:16:33 Family in patients room. 15:16:34 Patient NPO since Midnight. 15:16:36 Is the patient allergic to Iodine/contrast media? No. 15:16:37 Was the patient premedicated? No 15:16:39 Is patient on blood thinner?Yes 15:16:42 ACC The patient was administered the following blood thiners within the last 24 hours: ACCPlavix 15:16:44 Patient diabetic? No. 15:16:47 Previous problem with sedation/anesthesia? No ? 15:16:49 Snore? No 15:16:50 Sleep apnea? No 15:16:51 Deviated septum? No 15:16:52 Opens mouth fully? Yes 15:16:53 Sticks out tongue? Yes 15:16:57 Airway obstruction? No ? 15:17:01 Dentures? No ? 15:17:07 Pre procedure: right dorsailis pedis pulse 1+ Palpable, but thready & weak; easily obliterated 15:17:11 Pre procedure: left dorsailis pedis pulse 1+ Palpable, but thready & weak; easily obliterated 15:17:14 Patient pain scale 7/10 ?. 15:19:16 IV patent on arrival in right forearm with 0.9% NaCl at KVO. 15:19:18 Lab results completed and on chart. 15:19:22 Right groin area was prepped with chlora-prep and draped in sterile fashion 15:19:23 Alarms reviewed by R. N. 15:19:23 Sharps counted by scrub and verified by R.N. 15:20:29 1) 90+ Normal kidney functon but urine findings or structural abnormalities or genetic trait point to kidney disease. 15:20:49 Physician arrived 15:20:49 --------ALL STOP TIME OUT------ 15:20:50 Final Timeout: patient, procedure, and site verified with staff and physician. All members of the team are in agreement. 15:20:51 Right groin site verified by team. 15:20:54 Fire Safety Assessment: A--An alcohol-based skin anteseptic being used preoperatively., C--Open oxygen or nitrous oxide is being used., D--An ESU, laser, or fiber-optic light is being used. 15:20:57 Physical assessment completed. ASA score P 2 - A patient with mild systemic disease as per Robert Pappas MD. 15:21:03 Maximum allowable contrast dose (3.7 X eGFR X 0.75)250 ml. 15:21:06 Sedation plan: IV Moderate Sedation Medication:Versed, Fentanyl 15:21:22 Use device set Femoral Dx 15:21:23 ACIST Syringe (93102) opened to sterile field. 15:21:23 Bag Decanter (2002S) opened to sterile field. 15:21:24 Medline Cath Pack ([id number]) opened to sterile field. 15:21:25 ACIST Hand Control (32452) opened to sterile field. 15:21:25 ACIST Manifold (03899) opened to sterile field. 15:21:26 DIAGNOSTIC Multipack 5Fr catheter set (TM7381) opened to sterile field. 15:21:26 Tegaderm 4 x 4 (1626W) opened to sterile field. 15:21:28 EMERALD Guide Wire (228-137) opened to sterile field. 15:21:29 SHEATH 5FR [place] (AZZ007) opened to sterile field. 15:24:30 Zero performed for pressure channel P1 15:33:06 Versed 2 mg I.V. was administered by Joce Lyle RN; for sedation; 15:33:14 Fentanyl 100 mcg I.V. was administered by Joce Lyle RN; for sedation; 15:33:27 procedure started 15:37:38 Local anesthetic to right femoral artery with Lidocaine 2% by Domenic Aldrich MD.INITIAL ACCESS ONLY 15:38:29 Versed 2 mg I.V. was administered by Joce Lyle RN; for sedation; 15:38:31 A 5 Fr sheath was inserted into the Right Femoral artery 15:38:34 Fentanyl 100 mcg I.V. was administered by Joce Lyle RN; for sedation; 15:39:21 A MULTIPACK Pigtail 5 Fr catheter was advanced over the wire and used for LV Angiography. 15:39:35 LV hemodynamics recorded. 15:39:36 LV gram done using FIGUEROA 15:39:39 Injector settings: Ml/sec: 5, Volume: 15, 15:39:42 Versed 2 mg I.V. was administered by Joce Lyle RN; for sedation; 15:39:45 EF : 55 % 15:39:49 Catheter removed. 15:40:15 A MULTIPACK JL 4.0 5Fr catheter was advanced over the wire and used for Left Coronary Angiography. 15:40:20 LCA angiography performed. 15:40:25 Injector settings: Ml/sec: 3, Volume: 6, 15:40:46 Catheter removed. 15:41:00 A MULTIPACK 3DRC 5Fr catheter was advanced over the wire and used for Right Coronary Angiography. 15:41:03 RCA angiography performed. 15:41:06 Injector settings: Ml/sec: 3, Volume: 6, 15:42:27 [place] Verrata Plus pressure wire (24455C) opened to sterile field. 15:42:28 GUIDE 6FR XBLAD 3.5 catheter ([id number]) opened to sterile field. 15:42:29 INFLATOR Merit BasixCompak (RU2127) opened to sterile field. 15:42:30 SHEATH 6FR [place] (CSZ008) opened to sterile field. 15:43:08 Catheter removed. 15:43:09 Proceeding to intervention. 15:43:18 6 Fr xblad 3.5 guide catheter was inserted over the wire 15:43:37 FFR/IFR wire advanced. 15:44:08 Baseline FFR 1. 15:45:25 Wire advanced across lesion. 15:46:40 mLAD lesion measured at 0.81 with IFR 15:47:52 Heparin Bolus 4000 units I.V. was administered by Joce Lyle RN; for anticoagulation; 15:48:40 Inflate balloon Inflation number: 1 A EUPHORA 2.0 x 15 Balloon ([id number]) was prepped and advanced across the Dist LAD , then inflated to 11 TAYLOR for 0:10 (min:sec) . 15:49:23 Balloon removed over the wire. 15:50:58 Place stent Inflation Number: 1 A MARY JANE RX 3.0 x 15 stent ([id number]) was prepped and advanced across the Mid LAD 70. The stent was deployed at 15 TAYLOR for 0:10 (min:sec) 0. 15:51:12 Inflation number: 2 The stent balloon was then re-inflated across the Mid LAD 0 to 11 TAYLOR for 0:10 (min:sec) . 15:51:42 Stent catheter was removed intact over wire. 15:51:43 Wire removed. 15:51:43 Guide catheter removed. 15:52:07 EXOSEAL 6Fr (EX600) opened to sterile field. 15:52:25 Sheath removed intact; hemostasis achieved with Exoseal to the Right Femoral artery. 15:52:27 Procedure ended.(Physican Out) 15:52:53 Fluoroscopy time 03.70 minutes. 15:53:02 Fluoroscopy dose: 741 mGy 15:53:02 Flurop Dose total: 741 15:53:09 Dose Area Product 59897 mGy/cm. 15:53:13 Contrast amount:Isovue 300 87ml. 15:53:24 Sharps counted by scrub and verified by R.N. 15:53:25 Insertion/operative site no bleeding no hematoma. 15:53:27 Post-op/insertion site Right Femoral artery dressed using a 4 x 4 and Tegaderm. 15:53:30 Post procedure rhythm: unchanged. 15:53:33 Estimated blood loss: 5 ml 15:53:34 Post procedure instruction explained to patient.Patient verbalizes understanding. 15:53:34 Patient needs reinforcement of post procedure teaching. 15:53:45 Procedure type changed to Cath procedure, Diagnostic procedure, LHC, C w/Coronaries, FFR/IVUS, Intra-Coronary IVUS Initial, PCI procedure, Coronary Stent, Coronary Stent Initial 15:53:46 Procedure and supply charges have been captured, reviewed, submitted and are correct. 15:53:51 Procedure Complication : No complications 15:53:53 Vital chart was stopped 15:53:53 See physician's report for complete and final results. 15:53:55 Report given to [facility]. 15:53:57 Patient transfered to [facility] with Stretcher. 15:53:59 Procedure ended. 15:53:59 Full Disclosure recording stopped 15:54:07 ACC-PCI Only Patient was given prescriptions, or instructed by Domenic Aldrich MD to start/continue the following medications upon discharge: Plavix 15:54:09 End room use (Document Last) Intervention Summary Intervention Notes Time ActionType Lesion and Equipment Used Action# Pressure Duration Attributes 15:48:40 Inflate Dist LAD EUPHORA 2.0 x 1 11 00:10 balloon 15 Balloon ([id number]) 15:50:58 Place stent Mid LAD MARY JANE RX 3.0 x 1 15 00:10 15 stent ([id number]) 15:51:12 Reinflate Mid LAD MARY JANE RX 3.0 x 2 11 00:10 stent 15 stent balloon ([id number]) Device Usage Item Name Manufacture Quantity Catalog Hospital Part Current Minimal Lot# / Number Charge Number Stock Stock Serial# Code ACIST Syringe Acist 1 48000 638645 019311 501306 20 (65518) Medical Systems Inc Bag Decanter Microtek 1 036247 87326 038015 5 (2001S) Medical Inc. Medline Cath Medline 1 [id number] 117019 50083 919862 5 Pack ([id number]) ACIST Hand Acist 1 98319 060922 330659 113885 5 Control Medical (33001) Systems Inc ACIST Manifold Acist 1 12245 447992 412986 789907 5 (84458) Medical Systems Inc DIAGNOSTIC Cardinal 1 MZ5437 941931 40503 287836 30 Multipack 5Fr Health catheter set (CA2180) Tegaderm 4 x 4 3M 1 1626W 133224 112328 752749 5 (1626W) EMERALD Guide Cardinal 1 502-455 187000 948336 376174 5 Wire (502-455) Health SHEATH 5FR Terumo 1 YAQ809 206163 244907 751407 5 [place] (WNM190) MULTIPACK Cardinal 1 925031 5 Pigtail 5 Fr Health catheter MULTIPACK JL Cardinal 1 379316 5 4.0 5Fr Health catheter MULTIPACK 3DRC Cardinal 1 607570 5 5Fr catheter Health [place] 1 29435L 783402 534327329 781562 5 Verrata Plus pressure wire (93437U) GUIDE 6FR Cardinal 1 [id number] 188522 887396 378748 10 XBLAD 3.5 Health catheter (40559779) INFLATOR Merit Merit 1 UQ3537 003023 630048 061794 15 [facility] (BK0421) SHEATH 6FR Terumo 1 EMT133 704686 993229 700739 40 [place] (ZJQ305) EUPHORA 2.0 x Medtronic 1 [id number] 056755 640733 039850 5 [id number] 15 Balloon ([id number]) MARY JANE RX 3.0 x Medtronic 1 [id number] 627151 0972000 795850 5 [id number] 15 stent ([id number]) EXOSEAL 6Fr Cardinal 1 EX600 952988 546943 926168 10 (EX600) Health Signature Audit [place] Stage Time Signature Unsigned Intra-Procedure 03/01/2019 Abby Eubanks 3:56:48 PM RT(R) Signatures Monitor : Abby Eubanks RT Signature : Date : Time : Nurse : Joce Lyle Signature : RN Date : Time : Performing Physician : Signature : Domenic Aldrich MD Date : Time : [facility] [address] [place] [address]
--- NOTE | 2019-02-28 19:40 | NUR ---
SL NITRO WITHHELD AT THIS TIME DUE TO PT BLOOD PRESSURE. B/P 114/70
[2019-02-28 19:46] LABS: BASOPHILS 0.3 % (0-2); EOSINOPHILS 1.9 % (0-7); HEMATOCRIT 39.1 % (36.0-48.0); HEMOGLOBIN 13.7 g/dL (12-16); IMMATURE GRANULOCYTES 0.3 % (0-5); LYMPHOCYTES 25.8 % (15-50); MCH 32.2 pg (26.0-34.0); MEAN PLATELET VOLUME 9.9 fL (7.4-10.4); MONOCYTES 8.1 % (2-11); NEUTROPHILS 63.6 % (40-80); RBC 4.25 10x6/uL (4.00-5.40); RDW 13.9 % (11.5-14.5); WBC 7.3 10x3/uL (4.8-10.8)
[2019-02-28 19:47] LABS: PLATELET COUNT 192 10x3/uL (130-400)
[2019-02-28 20:00] LABS: APTT 26.2 SECONDS (22.8-39.4); INR 1.08 (0.85-1.17); PROTIME 13.5 SECONDS (11.6-15.0)
[2019-02-28 20:09] LABS: ALBUMIN 3.9 g/dL (3.4-5.0); ALKALINE PHOSPHATASE 102 U/L (46-116); ALT (SGPT) 20 U/L (10-68); BILIRUBIN - TOTAL 0.63 mg/dL (0.2-1.3); CALC OSMOLALITY 278 mosm/kg (275-300); CALCIUM 9.6 mg/dL (8.5-10.1); CARBON DIOXIDE 26.3 mmol/L (21.0-32.0); CHLORIDE - SERUM 101 mmol/L (98-107); CREATININE - SERUM 0.7 mg/dL (0.6-1.3); GLUCOSE 88 mg/dL (74-106); POTASSIUM - SERUM 3.9 mmol/L (3.5-5.1); PROTEIN - SERUM 7.3 g/dL (6.4-8.2); SODIUM 140 mmol/L (136-145); UREA NITROGEN 14 mg/dL (7-18); eGFR NON AFRICAN AMERICAN 90 mL/min (90-120)
[2019-02-28 20:19] LABS: CKMB 0.9 U/L (0.0-3.6); CREATINE KINASE 57 UL (21-215); MAGNESIUM - SERUM 1.7 mg/dL (1.8-2.4); TROPONIN-I < 0.017 ng/mL (0.000-0.060)
--- NOTE | 2019-02-28 21:52 | NUR ---
PT RATES CHEST PAIN 7/10 BEFORE FIRST SL NITRO AT 2148. AT 2157 PT RATES PAIN 7/10 SECOND SL NITRO GIVEN AT THAT TIME, CHEST PAIN REMAINS 7/10. EDP IN ROOM AT 2204, OBSERVES BP 105/54, NO MORE SL NITRO GIVEN AT THIS TIME PT STATES PAIN REMAINS 7/10.
--- NOTE | 2019-02-28 22:19 | NUR ---
PT RATES CHEST PAIN 7/10 BEFORE FIRST SL NITRO AT 2148. AT 2157, PT RATES CHEST PAIN 7/10, SECOND SL NITRO GIVEN AT THAT TIME. EDP IN ROOM AT 2204, OBSERVES BP OF 105/54 WITH PAIN STILL RATED AT 7/10, NO MORE SL NITRO GIVEN AT THIS TIME.
[2019-02-28] MEDS ORDERED: ZANAFLEX4 MG PO (22:42)
[2019-02-28 23:28] LABS: CKMB 1.2 U/L (0.0-3.6); CREATINE KINASE 59 UL (21-215)
[2019-02-28 23:29] LABS: TROPONIN-I < 0.017 ng/mL (0.000-0.060)
[2019-02-28] MEDS ORDERED: FUROSEMIDE40 MG PO (23:34)
[2019-03-01 00:25] VITALS: BP 129/77; BMI 28.4
[2019-03-01 04:00] VITALS: BP 139/58
[2019-03-01 05:09] LABS: BASOPHILS 0.3 % (0-2); EOSINOPHILS 2.1 % (0-7); HEMATOCRIT 37.9 % (36.0-48.0); HEMOGLOBIN 12.9 g/dL (12-16); IMMATURE GRANULOCYTES 0.3 % (0-5); LYMPHOCYTES 28.4 % (15-50); MCH 31.9 pg (26.0-34.0); MCV 93.6 fL (80.0-100.0); MEAN PLATELET VOLUME 10.1 fL (7.4-10.4); MONOCYTES 12.2 % (2-11); NEUTROPHILS 56.7 % (40-80); PLATELET COUNT 172 10x3/uL (130-400); RBC 4.05 10x6/uL (4.00-5.40); WBC 7.1 10x3/uL (4.8-10.8)
[2019-03-01 06:02] LABS: ALBUMIN 3.4 g/dL (3.4-5.0); ALKALINE PHOSPHATASE 84 U/L (46-116); BILIRUBIN - TOTAL 0.52 mg/dL (0.2-1.3); CALC OSMOLALITY 277 mosm/kg (275-300); CALCIUM 9.1 mg/dL (8.5-10.1); CARBON DIOXIDE 25.2 mmol/L (21.0-32.0); CHLORIDE - SERUM 103 mmol/L (98-107); CKMB 1.4 U/L (0.0-3.6); CREATINE KINASE 54 UL (21-215); CREATININE - SERUM 0.6 mg/dL (0.6-1.3); GLUCOSE 83 mg/dL (74-106); PROTEIN - SERUM 6.7 g/dL (6.4-8.2); SODIUM 139 mmol/L (136-145); TROPONIN-I < 0.017 ng/mL (0.000-0.060); UREA NITROGEN 16 mg/dL (7-18); eGFR NON AFRICAN AMERICAN > 90 mL/min (90-120)
[2019-03-01 06:15] LABS: ALT (SGPT) 14 U/L (10-68)
[2019-03-01 09:27] VITALS: BP 130/64
--- NOTE | 2019-03-01 09:27 | NUR ---
CONSENTS SIGNED FOR [facility]. WILL CONT. PLAN OF CARE.
[2019-03-01 09:49] VITALS: Ht 160 cm; Wt 72.7 kg
[2019-03-01 10:07] LABS: CKMB 1.4 U/L (0.0-3.6); CREATINE KINASE 54 UL (21-215); TROPONIN-I < 0.017 ng/mL (0.000-0.060)
[2019-03-01 13:45] VITALS: BP 110/56
--- NOTE | 2019-03-01 14:57 | NUR ---
PRE-OPS GIVEN. TO ASSISTANT STORE MANAGER TRAINEE BY BED.
--- NOTE | 2019-03-01 16:18 | NUR ---
BACK FROM [employer] S[employer]OR SPECIALIST. VS WNL. RIGHT GROIN STABLE WITHOUT BLEEDING OR HEMATOMA NOTED. WILL MONITOR.
--- NOTE | 2019-03-01 19:45 | NUR ---
INITIAL ROUNDS AND ASSESSMENT COMPLETED. RIGHT GROIN INCISION SITE C/D/I WITH NO SWELLING OR BLEEDING NOTED. PT STILL ON BEDREST UNTIL 8PM. SHE IS C/O PAIN/DISCOMFORT TO GROIN/BACK/KNEE ON RIGHT LEG. MEDICATED WITH NORCO FOR PAIN. AT BEDSIDE. VERY ABRUPT WITH STAFF THAT HIS MUST RECEIVE PAIN MEDS. EXPLAINED TO THAT PT WAS JUST GIVEN NORCO AND IT WAS ORDERED THE SAME DOSE AND FREQUENCY SHE TAKES IT AT HOME. AFTER PT'S LEFT FOR THE NIGHT WITH C/O THE RECLINER BEING TOO UNCOMFORTABLE FOR HIM TO STAY, THE PATIENT APOLOGIZED FOR HIS GRUFFNESS.
[2019-03-01 20:00] VITALS: BP 117/54
[2019-03-02] VITALS: BP 96/47
--- NOTE | 2019-03-02 01:15 | NUR ---
MEDICATED WITH NORCO FOR C/O GROIN AND LEG PAIN. RIGHT GROIN INCISION SITE C/D/I. NO SWELLING OR BRUISING NOTED.
[2019-03-02 04:00] VITALS: BP 121/57
--- NOTE | 2019-03-02 05:19 | NUR ---
PT AWAKE WITH REQUEST FOR PAIN MED FOR BACK/LEG/GROIN PAIN 03/02. NORCO GIVEN. MONITOR AND CPOC. CALL LIGHT IN REACH.
--- NOTE | 2019-03-02 07:15 | NUR ---
RECEIVED PT IN BED EYES CLOSED RESP UNLABORED SKIN W/D COLOR WNL NAD NOTED
[2019-03-02] MEDS ORDERED: K-DUR20 MEQ PO (08:38)
[2019-03-02] MEDS ORDERED: BAYER CHEWABLE81 MG PO (08:38)
[2019-03-02] MEDS ORDERED: PLAVIX75 MG PO (08:38)
[2019-03-02 08:50] VITALS: BP 128/33
--- NOTE | 2019-03-02 10:25 | NUR ---
REVIEWED DISCHARGE INSTRUCTIONS WITH PT STATES UNDERSTANDING COPY GIVEN DCD SALINE LOCK TO RT HAND WITH IV CATHETER SITE FREE OF REDNESS OR EDEMA PT DISCHARGED HOME LEFT UNIT IN STABLE CONDITION WITH ALL PERSONAL BELONGINGS
--- NOTE | 2019-03-04 09:23 | MORECARE ---
CASE MANAGEMENT DISCHARGE SUMMARY PATIENT: JEANETH FARRELL UNIT: [id number] ADM DATE: 02/28/19 AGE: 59 : 58 SEX: F ROOM/BED: D.5392 AUTHOR: ANJELICA CACERES PHYSICIAN: REFERRING PHYSICIAN: JANNA WONG MD DATE OF SERVICE: 03/04/19 Discharge Plan Patient Name: JEANETH FARRELL Facility: [facility]:[place] : 1960 Planned Disposition: Home Anticipated Discharge Date: 03/02/19 Discharge Date: 03/02/2019 Expected LOS: 2 Initial Reviewer: [email or web address] Initial Review Date: 03/04/2019 Generated: 03/04/19 10:23 am Patient Name: JEANETH FARRELL Page 18890 at 0923 All edits/amendments must be made on the electronic document DICTATION DATE: 03/04/19922 SHORT ORDER FRY COOK: FRANCO 03/04/19922 RPT#: [id number] DC DATE:03/02/19 STATUS: DIS IN [facility] [address] [place] [address] END OF REPORT
== END 2019-03-02 10:25 | disposition home or self-care (01) ==
LOC: D.ER 19:08 → D.M2 22:11 → OBSVTIME 22:11 → D.M2 22:11
PROVIDERS: Family Medicine; ADMIT Internal Medicine Interventional Cardiology; ATTEND Internal Medicine Interventional Cardiology
DX: I25.110 Atherosclerotic heart disease of native coronary artery with unstable angina pectoris (principal); I10 Essential (primary) hypertension; E78.5 Hyperlipidemia, unspecified; J44.9 Chronic obstructive pulmonary disease, unspecified; Z87.891 Personal history of nicotine dependence

== ENCOUNTER → 2019-05-07 16:46 | Outpatient (CLI) | payer MEDICAID ==
[2019-03-01 09:49] VITALS: BMI 28.4
[~2019-05-07 16:46] MED LIST changes: +FUROSEMIDE40 MG PO; +ZANAFLEX4 MG PO
[2019-05-07 17:22] LABS: LDL-HDL RATIO 1.7 ratio (1.5-3.5)
== END | disposition home or self-care (01) ==
LOC: D.LABREF 16:46
PROVIDERS: ATTEND Internal Medicine Interventional Cardiology
DX: E78.5 Hyperlipidemia, unspecified (principal); I25.10 Atherosclerotic heart disease of native coronary artery without angina pectoris

== ENCOUNTER 2019-07-23 17:41 | Inpatient (IN) | payer MEDICAID ==
[~2019-07-23] VITALS: Ht 154.9 cm; Wt 63.6 kg
--- NOTE | ~2019-07-23 | OP ---
PATIENT NAME: JEANETH FARRELL MEDICAL RECORD: [id number] :58 LOCATION:D.M2 D.2125 ADMISSION DATE:07/24/19 SURGEON: JOE MORENO MD DATE OF OPERATION: 07/25/2019 PROCEDURE: Left heart catheterization, selective coronary angiography, right femoral artery approach. CATHETERS: A 5-[place] sheath, 5/4 left and right Erick, 5/4 pig. The procedure was well tolerated. The patient was returned to the bains. Sheath removed. ExoSeal device placed. FINDINGS: Left ventriculography in 30-degree FIGUEROA view: Normal wall motion, normal systolic function. CORONARY ANATOMY: LEFT MAIN: Left main is free of disease. LAD: An area of previous stenting is widely patent. No evidence of progression of [place] disease. CIRCUMFLEX: Free of disease. RIGHT CORONARY ARTERY: Somewhat codominant system, free of disease. IMPRESSION: No evidence of restenosis. No progression of [place] disease. LV function remains normal. TRANSINT:[id number] Voice Confirmation ID: [id number] DOCUMENT ID: [id number] JOE MORENO MD CC: [id number] DICTATION DATE: 07/25/19 1013 OVERLAY OPERATOR: 07/25/19 [address] [facility] [address] [place] [id number]
--- NOTE | ~2019-07-23 | HEMODYNAMI ---
PATIENT:JEANETH FARRELL MEDICAL RECORD: [id number] : 58 LOCATION:[facility] D.[address] [facility]# [id number] ADMISSION DATE: 07/24/19 Generatedon:07/25/201910:09 Patient name: JEANETH FARRELL Patient #: [id number] : 1960 Date of study: 07/25/2019 Page: Of Hemodynamic Procedure Report Patient Data Patient Demographics Procedure consent was obtained First Name: JEANETH Gender: Female Last Name: JAMI : 1960 Middle Initial: A Age: 59 year(s) Patient #: [id number] Race: SSN: [id number] Additional ID: [id number] Contact details Address: [address] [place] [address] State: [place] [facility] [place]: [address] Past Medical History Allergies Allergen Reaction Date Comments Reported Other allergy 07/25/2019 PCN,latex Admission Admission Data Admission Date: 07/24/2019 Admission Time: 14:15 Arrival Date: 07/25/2019 Arrival Time: 0:00 Admit Source: Other Insurance Payor: Private Room #: D.2125 health insurance [facility] #: [id number] Height (in.): 60.63 BSA: 1.61 (m2) Height (cm.): 154 BMI: 26.56 (kg/m2) Weight (lbs.): 138.89 Weight (kg.): 63 Lab Results Lab Result Date: 07/25/2019 Lab Result Time: 0:00 Biochemistry Name Units Result Min Max BUN mg/dl 16 --(---*)-- 7 18 Creatinine mg/dl 0.9 --(-*--)-- 0.6 1.3 CBC Name Units Result Min Max Hemoglobin g/dl 11.1 *-(----)-- 13.5 17.5 Procedure Procedure Types Cath Procedure Diagnostic Procedure C LHC w/Coronaries Sedation Charges Moderate Sedation up to 15 minutes Procedure Description Procedure Date Procedure Date: 07/25/2019 Procedure Start Time: 9:57 Procedure End Time: 10:08 Procedure Staff Name Function Mitchel Buenrostro MD Performing Physician Samia Hercules RT Monitor Nini Arias RN Nurse Abby Eubanks RT Scrub Indication Abnormal enzymes Chest pain Procedure Data Cath Procedure Fluoroscopy Diagnostic fluoroscopy Total fluoroscopy Time: 1 time: 1 min min Diagnostic fluoroscopy Total fluoroscopy dose: 271 dose: 271 mGy mGy Contrast Material Contrast Material Type Amount (ml) Isovue 300 46 Entry Location Entry Primary Successful Side Size Upsize Upsize Entry Closure Succes sful Closure Location (Fr) 1 (Fr) 2 (Fr) Remarks Device Remarks Femoral Right 5 Fr Exoseal artery Estimated blood loss: 10 ml Diagnostic catheters Device Type Used For End Catheter Placement MULTIPACK JL 4.0 5Fr Procedure catheter MULTIPACK 3DRC 5Fr Procedure catheter MULTIPACK Pigtail 5 Fr Procedure catheter Procedure Complications No complications Procedure Medications Medication Administration Route Dosage 0.9% NaCl I.V. 100 ml/hr Oxygen etCO2 Nasal cannula 2 l/min Lidocaine 2% added to field 20 Heparin Flush Bag added to field 2 bags (1000units/500ml NS) Versed I.V. 2 mg Fentanyl I.V. 50 mcg Versed I.V. 2 mg Fentanyl I.V. 50 mcg Hemodynamics Rest BSA: 1.61 (m2) HGB: 11.1 (g/dl) O2 Consumption: Estimated: 168.6 (ml/min) O2 Con sumption indexed: Estimated:104.72 (ml/min/m) Heart Rate: 96 (bpm) Pressure Samples Time Site Value (mmHg) Purpose Heart Use Rate(bpm) 10:04 LV 110/4,9 Snapshot 101 Gradients Valve Time Site Site Mean SEP/DFP Peak To Heart Use 1 2 (mmHg) (sec/min) Peak Rate (mmHg) (bpm) Aortic 10:05 LV AO 103 Snapshots Pre Cath Intra NCS Post Cath Vital Signs Time Heart Resp SPO2 etCO2 NIBP (mmHg) Rhythm Pain Sedation Rate (ipm) (%) (mmHg) Status Level (bpm) 9:42:07 96 13 100 35 125/72(98) NSR 0 (11) 10(A) , No pain 9:46:19 97 13 100 34.9 124/72(94) NSR 0 (11) 10(A) , No pain 9:50:29 99 21 100 37.1 123/73(96) NSR 0 (11) 10(A) , No pain 9:54:39 100 13 100 27.5 113/71(93) NSR 0 (11) 10(A) , No pain 9:58:45 101 16 100 20 117/73(89) NSR 0 (11) 10(A) , No pain 10:02:53 101 15 99 25.2 123/72(98) NSR 0 (11) 10(A) , No pain 10:07:01 104 37 99 26.7 121/80(105) NSR 0 (11) 10(A) , No pain Medications Time Medication Route Dose Verified Delivered Reason Notes Effe ctiveness by by 9:40:28 Heparin Flush added 2 Mitchel Galindoory used for Bag to bags [facility] procedure (1000units/500ml field MD LOPEZ NS) 9:41:14 0.9% NaCl I.V. 100 Mitchel Nini used for ml/hr Chitra Hugo procedure MD DUFFY 9:41:19 Oxygen etCO2 2 Mitchel Nini used for [facility]al l[facility] MD DUFFY 9:41:24 Lidocaine 2% added 20ml Mitchel Galindoory for local to vial [facility] anesthetic field MD LOPEZ 9:51:11 Fentanyl I.V. 50 Mitchel Nini for mcg Chitra Hugo sedation MD DUFFY 9:51:57 Versed I.V. 2 mg Mitchel Nini for Chitra Hugo sedation MD DUFFY 9:58:35 Versed I.V. 2 mg Mitchel Nini for Chitra Hugo sedation MD DUFFY 9:58:39 Fentanyl I.V. 50 Mitchel Nini for mcg Chitra Hugo sedation MD DUFFYcan sealer Log Time Note 9:30:05 Arrival Date: 07/25/2019 12:00:00 AM 9:30:23 Admit Source: Other 9:30:29 Insurance Payor : Private health insurance 9:30:40 Patient Height : 60.63 inches 9:30:44 Patient Weight : 138.89 lbs 9:31:23 Lab Result : Hemoglobin 11.1 g/dl 9:31:23 Lab Result : Creatinine 0.9 mg/dl 9:31:23 Lab Result : BUN 16 mg/dl 9:31:31 Diagnostic Cath Status : Urgent 9:31:51 Indication : Abnormal enzymes 9:31:58 Indication : Chest pain 9:32:24 Use device set Femoral Dx 9:32:28 ACIST Syringe (98921) opened to sterile field. 9:32:28 Bag Decanter (2002S) opened to sterile field. 9:32:29 Medline Cath Pack ([id number]) opened to sterile field. 9:32:30 ACIST Hand Control (48614) opened to sterile field. 9:32:30 ACIST Manifold (22821) opened to sterile field. 9:32:31 DIAGNOSTIC Multipack 5Fr catheter set ([id number]) opened to sterile field. 9:32:31 Tegaderm 4 x 4 (1626W) opened to sterile field. 9:32:34 MICROPUNCTURE 4FR Cook ([id number]) opened to sterile field. 9:32:38 SHEATH 5FR Betsy Layne ([id number]) opened to sterile field. 9:32:39 EMERALD Guide Wire (462-868) opened to sterile field. 9:32:49 Procedure Status Urgent Heart Cath (IP). 9:33:04 Nini Arias RN sent for patient. Start room use. 9:33:10 Time tracking: Regular hours (M-F 7:00 - 5:00) 9:33:15 Plan of Care:Hemodynamics will remain stable., Cardiac rhythm will remain stable., Comfort level will be maintained., Respiratory function will remain adequate., Patient/ family verbilizes understanding of procedure., Procedure tolerated without complication., Recovers from procedure without complications.. 9:33:21 Patient received from Med II to CCL 2 Alert and oriented. Tansferred to table in Supine position. 9:33:24 Signed procedure consent form obtained from patient. 9:33:25 Warm blankets applied, and latha hugger turned on for patient comfort. 9:33:26 Correct patient and procedure confirmed by team. 9:33:50 Pre-procedure instructions explained to patient. 9:33:56 Pre-op teaching completed and patient verbalized understanding. 9:34:01 Family in waiting room. 9:34:03 Patient NPO since Midnight. 9:34:29 Patient allergic to Other allergyPCN,latex 9:34:33 Is the patient allergic to Iodine/contrast media? No. 9:34:34 Was the patient premedicated? Yes 9:35:04 1) 90+ Normal kidney functon but urine findings or structural abnormalities or genetic trait point to kidney disease. 9:35:18 Maximum allowable contrast dose (3.7 X eGFR X 0.75)250 ml. 9:40:28 Heparin Flush Bag (1000units/500ml NS) 2 bags added to field was administered by Mitchel Buenrostro MD; used for procedure; Verbal order read back and verified. 9:41:06 Vital chart was started 9:41:14 0.9% NaCl 100 ml/hr I.V. was administered by Nini Arias RN; used for procedure; Verbal order read back and verified. 9:41:19 Oxygen 2 l/min etCO2 Nasal cannula was administered by Nini Arias RN; used for procedure; Verbal order read back and verified. 9:41:24 Lidocaine 2% 20ml vial added to field was administered by Mitchel Buenrostro MD; for local anesthetic; Verbal order read back and verified. 9:43:51 Baseline sample Acquired. 9:43:58 Rhythm: sinus rhythm , sinus tachycardia 9:43:59 Full Disclosure recording started 9:44:14 H&P Date Dictated: 07/23/2019 Within 30 days and on chart., H&P Addendum completed by physician on day of procedure. (MUST COMPLETE FOR ALL OUTPATIENTS). 9:44:17 Is patient on blood thinner?Yes 9:44:20 ACC The patient was administered the following blood thiners within the last 24 hours: ACCPlavix 9:44:23 Patient diabetic? No. 9:44:27 Snore? No 9:44:28 Sleep apnea? No 9:44:32 Dentures? No ? 9:46:12 IV patent on arrival in left forearm with 0.9% NaCl at O. 9:46:16 Lab results completed and on chart. 9:46:21 Stress Test: no; N/A ? 9:46:24 Risk of Mortality: .3 9:46:27 Risk of blood transfusion: 5.6 9:46:30 Risk of KAMALJIT: 4.3 9:46:34 Right groin area was prepped with chlora-prep and draped in sterile fashion 9:46:35 Alarms reviewed by R. N. 9:46:36 Sharps counted by scrub and verified by R.N. 9:46:37 Physician paged 9:50:30 Physician arrived 9:50:31 --------ALL STOP TIME OUT------ 9:50:32 Final Timeout: patient, procedure, and site verified with staff and physician. All members of the team are in agreement. 9:50:34 Right groin site verified by team. 9:50:40 Fire Safety Assessment: A--An alcohol-based skin anteseptic being used preoperatively., C--Open oxygen or nitrous oxide is being used., D--An ESU, laser, or fiber-optic light is being used. 9:50:48 Physical assessment completed. ASA score P 3 - A patient with severe systemic disease as per Mitchel Buenrostro MD. 9:50:53 Sedation plan: IV Moderate Sedation Medication:Versed, Fentanyl 9:51:11 Fentanyl 50 mcg I.V. was administered by Nini Arias RN; for sedation; Verbal order read back and verified. 9:51:57 Versed 2 mg I.V. was administered by Nini Arias RN; for sedation; Verbal order read back and verified. 9:54:17 Zero performed for pressure channel P1 9:56:51 Procedure started. 9:57:11 Local anesthetic to right femoral artery with Lidocaine 2% by Mitchel Buenrostro MD.INITIAL ACCESS ONLY 9:58:35 Versed 2 mg I.V. was administered by Nini Arias RN; for sedation; Verbal order read back and verified. 9:58:39 Fentanyl 50 mcg I.V. was administered by Nini Arias RN; for sedation; Verbal order read back and verified. 9:59:19 A 5 Fr sheath was inserted into the Right Femoral artery 9:59:38 A MULTIPACK JL 4.0 5Fr catheter was advanced over the wire and used for Procedure. 10:00:07 LCA angiography performed. 10:02:41 Catheter removed. 10:02:48 A MULTIPACK 3DRC 5Fr catheter was advanced over the wire and used for Procedure. 10:02:56 RCA angiography performed. 10:04:05 ACCDominant side:Co-Dominant 10:04:11 Catheter removed. 10:04:23 A MULTIPACK Pigtail 5 Fr catheter was advanced over the wire and used for Procedure. 10:04:52 LV gram done using FIGUEROA 10:05:11 EF : 55 % 10:05:13 EXOSEAL 5Fr (EX500) opened to sterile field. 10:05:16 Catheter removed. 10:05:30 Sheath removed intact; hemostasis achieved with Exoseal to the Right Femoral artery. 10:05:33 Procedure ended.(Physican Out) 10:05:47 Fluoroscopy time 01.00 minutes. 10:05:51 Fluoroscopy dose: 271 mGy 10:05:51 Flurop Dose total: 271 10:06:04 Dose Area Product 08003 mGy/cm. 10:06:08 Contrast amount:Isovue 300 46ml. 10:06:13 Maximum allowable dose exceeded? No. 10:06:14 Sharps counted by scrub and verified by R.N. 10:06:19 Insertion/operative site no bleeding no hematoma. 10:07:00 Post-op/insertion site Right Femoral artery dressed using a 4 x 4 and Tegaderm. 10:07:02 Post Procedure Pulses reassessed and unchanged 10:07:06 Post-procedure physical assessment completed. ASA score P 3 - A patient with severe systemic disease as per Mitchel Buenrostro MD. 10:07:12 Post procedure rhythm: unchanged. 10:07:15 Estimated blood loss: 10 ml 10:07:19 Post procedure instruction explained to patient.Patient verbalizes understanding. 10:07:43 Procedure type changed to Cath procedure, Diagnostic procedure, LHC, C w/Coronaries, Sedation Charges, Moderate Sedation up to 15 minutes 10:07:45 Procedure and supply charges have been captured, reviewed, submitted and are correct. 10:07:58 Procedure Complication : No complications 10:08:01 Vital chart was stopped 10:08:13 [facility] Findings: mild to moderate CAD (<70%) 10:08:17 Operative report dictated upon procedure completion. 10:08:17 See physician's report for complete and final results. 10:08:19 Report given to [facility]. 10:08:24 Patient transfered to [facility] with Bed. 10:08:25 Procedure ended. 10:08:25 Full Disclosure recording stopped 10:08:31 End room use (Document Last) 10:08:57 End room use (Document Last) 10:09:28 End room use (Document Last) Device Usage Item Name Manufacture Quantity Catalog Hospital Part Current Minimal Lot# / Number Charge Number Stock Stock Serial# Code ACIST Syringe Acist 1 06182 314052 005895 029449 20 (46557) Medical Systems Inc Bag Decanter Microtek 1 2001S 621762 62096 415992 5 () Medical Inc. Medline Cath Medline 1 [id number] 136223 61222 262037 5 Pack ([id number]) ACIST Hand Acist 1 39729 150946 060116 339450 5 Control Medical (43946) Systems Inc ACIST Acist 1 25559 564268 265023 729077 5 Manifold Medical (46297) Systems Inc DIAGNOSTIC Cardinal 1 [id number] 549348 93137 073160 30 Multipack 5Fr Health catheter set ([id number]) Tegaderm 4 x 3M 1 1626W 134128 814600 001901 5 4 (1626W) MICROPUNCTURE Cook Medical 1 [id number] 927325 899973 550165 5 4FR Cook (L57700) SHEATH 5FR Terumo 1 ASH943 771235 222692 094427 5 Betsy Layne (RJF489) EMERALD Guide Cardinal 1 502-455 609991 150696 404874 5 Wire Health (502-455) MULTIPACK JL Cardinal 1 255181 5 4.0 5Fr Health catheter MULTIPACK Cardinal 1 770109 5 3DRC 5Fr Health catheter MULTIPACK Cardinal 1 280027 5 Pigtail 5 Fr Health catheter EXOSEAL 5Fr Cardinal 1 EX500 295710 216708 976187 10 (EX500) Health Signature Audit Pacolet Stage Time Signature Unsigned Intra-Procedure 07/25/2019 Samia Hercules 10:08:58 AM RT(R) Intra-Procedure 07/25/2019 Nini Arias 10:09:28 AM RN Intra-Procedure 07/25/2019 Mitchel Mayorga 10:09:47 AM Ari LOPEZ Signatures Performing Physician : Signature : Mitchel Buenrostro MD Date : Time : Monitor : Samia Hercules Signature : RT Date : Time : Nurse : Nini Hugo RN Signature : Date : Time : [address] [place] [address]
[2019-07-23 17:55] VITALS: Ht 154.9 cm; Wt 63.6 kg
[2019-07-23] MEDS ORDERED: COZAAR25 MG PO (18:38)
[2019-07-23] MEDS ORDERED: ZANAFLEX4 MG PO (18:40)
--- NOTE | 2019-07-23 18:44 | NUR ---
PT REPORTS NOT BEING ABLE TO GET WORDS OUT AT TIMES.
--- NOTE | 2019-07-23 18:59 | NUR ---
PT LOST CONCIOUSNESS IN ER ROOM. AWOKE AND DIDNT KNOW HER NAME OR HER OR DATE
--- NOTE | 2019-07-23 18:59 | NUR ---
URINE TO LAB
[2019-07-23 19:06] LABS: APPEARANCE CLEAR (CLEAR); BILIRUBIN NEGATIVE (NEGATIVE); COLOR YELLOW (YELLOW); GLUCOSE NEGATIVE (NEGATIVE); KETONE NEGATIVE (NEGATIVE); NITRITE NEGATIVE (NEGATIVE); PROTEIN NEGATIVE (NEGATIVE); UROBILINOGEN NORMAL (NORMAL)
[2019-07-23 19:14] LABS: UDS - AMPHET NEGATIVE QUAL (NEGATIVE); UDS - BARB NEGATIVE QUAL (NEGATIVE); UDS - BENZO POSITIVE QUAL (NEGATIVE); UDS - COCAINE NEGATIVE QUAL (NEGATIVE); UDS - OPIATE POSITIVE QUAL (NEGATIVE); UDS - PCP NEGATIVE QUAL (NEGATIVE); UDS - THC POSITIVE QUAL (NEGATIVE)
[2019-07-23 19:32] LABS: BASOPHILS 0.2 % (0-2); EOSINOPHILS 3.5 % (0-7); HEMATOCRIT 38.8 % (36.0-48.0); IMMATURE GRANULOCYTES 0.2 % (0-5); LYMPHOCYTES 12.2 % (15-50); MCH 32.1 pg (26.0-34.0); MCHC 33.5 g/dL (31.0-37.0); MCV 95.8 fL (80.0-100.0); MONOCYTES 5.9 % (2-11); RBC 4.05 10x6/uL (4.00-5.40); RDW 13.9 % (11.5-14.5); WBC 9.3 10x3/uL (4.8-10.8)
[2019-07-23 19:49] LABS: PLATELET COUNT 115 10x3/uL (130-400)
[2019-07-23 20:02] LABS: APTT 20.5 SECONDS (22.8-39.4)
[2019-07-23 20:03] LABS: INR 1.11 (0.85-1.17); PROTIME 13.8 SECONDS (11.6-15.0)
--- NOTE | 2019-07-23 20:13 | NUR ---
HOLD VANESSA FOR NOW PER RICKIE SOUZA APN.
[2019-07-23 20:22] LABS: ALBUMIN 3.5 g/dL (3.4-5.0); ALKALINE PHOSPHATASE 108 U/L (46-116); ALT (SGPT) 26 U/L (10-68); BILIRUBIN - TOTAL 0.49 mg/dL (0.2-1.3); CARBON DIOXIDE 28.2 mmol/L (21.0-32.0); CHLORIDE - SERUM 103 mmol/L (98-107); CKMB 0.3 U/L (0.0-3.6); CREATINE KINASE 72 UL (21-215); PROTEIN - SERUM 7.2 g/dL (6.4-8.2); SODIUM 142 mmol/L (136-145)
[2019-07-23 20:50] VITALS: BP 161/86
[2019-07-23 20:51] LABS: CALC OSMOLALITY 280 mosm/kg (275-300); CALCIUM 9.4 mg/dL (8.5-10.1); CREATININE - SERUM 0.6 mg/dL (0.6-1.3); GLUCOSE 75 mg/dL (74-106); MAGNESIUM - SERUM 2.1 mg/dL (1.8-2.4); THYROID STIMULATING HORMONE 1.03 uIU/mL (0.36-3.74); UREA NITROGEN 10 mg/dL (7-18); eGFR NON AFRICAN AMERICAN > 90 mL/min (90-120)
[2019-07-23 20:57] VITALS: BP 138/85
[2019-07-23 21:05] LABS: TROPONIN-I 0.087 ng/mL (0.000-0.060)
[2019-07-23 21:07] VITALS: BP 139/98
--- NOTE | 2019-07-23 22:40 | NUR ---
PT RESTING ON BED. PT WAKES TO VERBAL STIMULI. PT FAMILY AT BEDSIDE. PT AND FAMILY UPDATED ON PLAN OF CARE.
[2019-07-23 23:01] LABS: CKMB 0.5 U/L (0.0-3.6); CREATINE KINASE 64 UL (21-215)
[2019-07-23 23:07] LABS: TROPONIN-I < 0.017 ng/mL (0.000-0.060)
--- NOTE | 2019-07-23 23:15 | NUR ---
ARRIVED VIA STRETCHER TO BED LOCKED AND LOWERED SRX3 AND ASSESMENT AND HISTORY DONE
[2019-07-23] MEDS ORDERED: NEURONTIN600 MG PO (23:20)
--- NOTE | 2019-07-23 23:37 | NUR ---
PT STATES CP HAS NEVER BEEN BELOW A 7 NTG GIVEN AFTER BP CHECK
--- NOTE | 2019-07-23 23:51 | NUR ---
NTG X3 WITH NO REDUCTION IN PAIN CONTINUES TO RANK CP A 7 PT GIVES NO OTHER INDICATION OF PAIN TALKING CALMLY WITH FAMILY AT THIS TIME SKIN WARM AND DRY RESP EVEN AT 19 PULSE 73
[2019-07-24] VITALS: BP 126/72
[2019-07-24 04:00] VITALS: BP 130/81
[2019-07-24 06:14] LABS: CKMB 2.8 U/L (0.0-3.6); CREATINE KINASE 143 UL (21-215); TROPONIN-I < 0.017 ng/mL (0.000-0.060)
--- NOTE | 2019-07-24 08:27 | NUR ---
ALERT AND ORIENTED. TELEMERTY SHOWS SR 75. LEFT WRIST SL. DENIES ANY NEEDS AT PRESENT TIME. FAMILY AT BEDSIDE. WILL MONITOR
[2019-07-24 08:40] VITALS: BP 135/78
--- NOTE | 2019-07-24 10:34 | NUR ---
TO PROCTOLOGIST PER BED
[2019-07-24 10:41] LABS: CKMB 0.7 U/L (0.0-3.6); CREATINE KINASE 55 UL (21-215)
[2019-07-24 10:43] LABS: TROPONIN-I < 0.017 ng/mL (0.000-0.060)
[2019-07-24 10:55] LABS: BASOPHILS 0.3 % (0-2); EOSINOPHILS 4.6 % (0-7); HEMATOCRIT 33.8 % (36.0-48.0); HEMOGLOBIN 11.1 g/dL (12-16); IMMATURE GRANULOCYTES 0.1 % (0-5); LYMPHOCYTES 18.2 % (15-50); MCH 31.4 pg (26.0-34.0); MCHC 32.8 g/dL (31.0-37.0); MCV 95.8 fL (80.0-100.0); MEAN PLATELET VOLUME 10.2 fL (7.4-10.4); MONOCYTES 9.5 % (2-11); NEUTROPHILS 67.3 % (40-80); RBC 3.53 10x6/uL (4.00-5.40); RDW 13.9 % (11.5-14.5); WBC 7.6 10x3/uL (4.8-10.8)
[2019-07-24 11:18] LABS: ALT (SGPT) 23 U/L (10-68); CALC OSMOLALITY 276 mosm/kg (275-300); CALCIUM 8.9 mg/dL (8.5-10.1); CARBON DIOXIDE 27.5 mmol/L (21.0-32.0); CHLORIDE - SERUM 104 mmol/L (98-107); CHOL - HDL RATIO 2.8 ratio (2.3-4.1); CHOLESTEROL, TOTAL 160 mg/dL (0-200); CREATININE - SERUM 0.6 mg/dL (0.6-1.3); GLUCOSE 87 mg/dL (74-106); HDL CHOLESTEROL 57 mg/dL (32-96); LDL CHOLESTEROL 88 mg/dL (0-100); LDL-HDL RATIO 1.5 ratio (1.5-3.5); POTASSIUM - SERUM 3.6 mmol/L (3.5-5.1); SODIUM 140 mmol/L (136-145); TRIGLYCERIDE 77 mg/dL (30-200); UREA NITROGEN 10 mg/dL (7-18); eGFR NON AFRICAN AMERICAN > 90 mL/min (90-120)
[2019-07-24 11:30] LABS: PLATELET COUNT 213 10x3/uL (130-400)
[2019-07-24 12:23] VITALS: BP 133/50
--- NOTE | 2019-07-24 14:54 | NUR ---
LYING QUIETLY. DENIES ANY CHEST PAIN. SR UP WITH CALL LIGHT IN REACH
--- NOTE | 2019-07-24 15:23 | NUR ---
I have reviewed this patient and I concur with the Shift Assessment completed by the Licensed Practical Nurse today this shift.
[2019-07-24 16:11] VITALS: BP 121/57
[2019-07-24 20:00] VITALS: BP 102/64
--- NOTE | 2019-07-24 20:35 | NUR ---
PANEL ASSEMBLER AT BED SIDE TO CLIP PT FOR HEART CATH IN AM, PT GETTING UP TO SHOWER WITH HIBICLENSE.
--- NOTE | 2019-07-24 23:48 | NUR ---
RESTING WITH EYES CLOSED, RESPERATIONS EVEN, NO S/S DISTRESS NOTED.
[2019-07-25] VITALS: BP 149/62
--- NOTE | 2019-07-25 01:23 | NUR ---
I have reviewed this patient and I concur with the Shift Assessment completed by the Licensed Practical Nurse today this shift.
[2019-07-25 04:30] VITALS: BP 143/90
[2019-07-25 06:14] LABS: ANION GAP 14.2 mmol/L (8-16); CALCIUM 8.7 mg/dL (8.5-10.1); CREATININE - SERUM 0.9 mg/dL (0.6-1.3); POTASSIUM - SERUM 3.2 mmol/L (3.5-5.1)
--- NOTE | 2019-07-25 07:36 | NUR ---
ALERT AND ORIENTED FAMILY AT BEDSIDE. TELEMERTY SHOWS ST 108. KT 3.2 TREATED WITH 40 OF POTASSIUM. LEFT HAND SL. NPO FOR CATH
[2019-07-25 07:41] LABS: BASOPHILS 0.3 % (0-2); EOSINOPHILS 2.9 % (0-7); HEMATOCRIT 35.3 % (36.0-48.0); HEMOGLOBIN 11.5 g/dL (12-16); IMMATURE GRANULOCYTES 0.3 % (0-5); LYMPHOCYTES 26.6 % (15-50); MCH 31.5 pg (26.0-34.0); MCHC 32.6 g/dL (31.0-37.0); MCV 96.7 fL (80.0-100.0); MEAN PLATELET VOLUME 10.5 fL (7.4-10.4); MONOCYTES 10.2 % (2-11); NEUTROPHILS 59.7 % (40-80); PLATELET COUNT 226 10x3/uL (130-400); RBC 3.65 10x6/uL (4.00-5.40); RDW 14.1 % (11.5-14.5); WBC 7.7 10x3/uL (4.8-10.8)
[2019-07-25 08:31] VITALS: BP 109/59
--- NOTE | 2019-07-25 09:31 | NUR ---
TO CATH LABPER BED
--- NOTE | 2019-07-25 10:06 | NUR ---
I have reviewed this patient and I concur with the Shift Assessment completed by the Licensed Practical Nurse today this shift.
--- NOTE | 2019-07-25 10:36 | NUR ---
BACK FROM SKIN LIFTER BACON. RIGHT GROIN SOFT WITH DRSG CLEAN AND DRY. PPP. V/S STABLE. TELEMERTY SHOWS SR84
--- NOTE | 2019-07-25 11:09 | NUR ---
I CALLED [facility]MA FOR D/C ORDERS ON THIS PATIENT. STATES HE WILL PUT SOME ORDERS IN.
--- NOTE | 2019-07-25 12:05 | CN ---
PATIENT NAME:JEANETH FARRELL MEDICAL RECORD: [id number] : 58 LOCATION:D. D.2125 ADMIT DATE: 07/24/19 ACCOUNT: [id number] CONSULTING PHYSICIAN: JOE MORENO MD REFERRING PHYSICIAN: YULI PEREZ MD DATE OF CONSULTATION: 07/24/2019 HISTORY OF PRESENT ILLNESS: A 59-year-old female with a known history of coronary artery disease with stenting via Dr. Aldrich via the LAD, actually was found after a syncopal episode at home. Family was concerned this might be secondary to excessive opioid or benzodiazepine use, was brought to the ER as the patient became more arousable. Reports she had chest pain and had taken 3 nitroglycerin and subsequently found to have elevated troponin. We are asked to see her concerning her cardiovascular status. PAST MEDICAL HISTORY: Includes; 1. History of hypertension. 2. Hyperlipidemia. 3. Coronary artery disease as described above. 4. Obstructive pulmonary disease. ALLERGIES: PENICILLIN AND LATEX. MEDICATIONS: Include Protonix 40 mg p.o. every day, potassium supplementation 40 mEq p.o. every day, Neurontin 600 b.i.d., aspirin 81 every day, Nelson 10/325 every day, BuSpar 15 b.i.d., Cymbalta 20 b.i.d., losartan 25 every day, nitroglycerin as needed, Imdur 60 every day, atorvastatin 20 every day, Plavix 75 every day. SOCIAL HISTORY: Nonsmoker, nondrinker. No set exercise program. REVIEW OF SYSTEMS: The patient reports easy bruising but reports no swollen glands. The patient reports no fever, no night sweats, no significant weight gain, no significant weight loss. No significant exercise tolerance. The patient reports no dry eyes, no irritation, no vision change. Patient reports no difficulty hearing and no ear pain. Patient reports no frequent nose bleeds or nose and sinus problems. Patient reports on arm pain on exertion. No shortness of breath while lying down. No history of heart murmur. Patient reports no cough, no wheezing or coughing up blood. Patient reports no abdominal pain, no vomiting. Normal appetite. No diarrhea and not vomiting blood. No nausea and no constipation. Patient reports no incontinence. No difficulty urinating. No hematuria. No increased frequency. Patient reports no muscle aches. No weakness, no arthralgias, no back pain. No swelling of the extremities. Patient reports no abnormal mole, no jaundice, no rashes. Reports no loss of consciousness. No weakness and no numbness. No seizures, dizziness, or headaches. The patient reports no depression, no sleep disturbance, feeling safe in a relationship and no alcohol abuse. Patient reports on fatigue. Reports no runny nose or sinus pressure. No itching, no hives, and no frequent sneezing. PHYSICAL EXAMINATION: GENERAL: Well-developed, well-nourished, appears stated age. VITAL SIGNS: Blood pressure 135/78, pulse 78 and regular. HEENT: Normocephalic and atraumatic. NECK: No bruits are noted. CONSULT REPORT [id number] JEANETH FARRELL HEART: Regular, III/ systolic ejection murmur. LUNGS: Good air excursion. ABDOMEN: Soft, nontender. EXTREMITIES: Pulses 2+. No edema. DIAGNOSTIC DATA: EKG shows minor nonspecific ST-T changes. IMPRESSION: Acute coronary syndrome/non-ST segment elevation myocardial infarction. PLAN: For angiography, intervention based on above for a.m. TRANSINT:[id number] Voice Confirmation ID: [id number] DOCUMENT ID: [id number] JOE MORENO MD at 1205 CC: [id number] DICTATION DATE: 07/24/19 1013 PUBLIC FINANCE SPECIALIST: 07/24/19 1250 [place] [address]
[2019-07-25 12:11] VITALS: BP 119/70
--- NOTE | 2019-07-25 13:45 | MORECARE ---
CASE MANAGEMENT DISCHARGE SUMMARY PATIENT: JEANETH FARRELL UNIT: [id number] ADM DATE: 07/24/19 AGE: 59 : 58 SEX: F ROOM/BED: D.8138 AUTHOR: ANJELICA CACERES PHYSICIAN: REFERRING PHYSICIAN: YULI PEREZ MD DATE OF SERVICE: 07/25/19 Discharge Plan Patient Name: JEANETH FARRELL Facility: [facility]:[place] : 1960 Planned Disposition: Home Anticipated Discharge Date: 07/25/19 Discharge Date: Expected LOS: 1 Initial Reviewer: [email or web address] Initial Review Date: 07/25/2019 Generated: 07/25/19 2:44 pm Patient Name: JEANETH FARRELL Page 03504 at 1345 All edits/amendments must be made on the electronic document DICTATION DATE: 07/25/19 1344 RN URGENT CARE: FRANCO 07/25/19 1344 RPT#: [id number] DC DATE: STATUS: ADM IN [facility] [address] [place] [address] END OF REPORT
--- NOTE | 2019-07-25 13:53 | MORECARE ---
CASE MANAGEMENT DISCHARGE SUMMARY PATIENT: JEANETH FARRELL UNIT: [id number] ADM DATE: 07/24/19 AGE: 59 : 58 SEX: F ROOM/BED: D.5124 AUTHOR: MORRIS,DOC PHYSICIAN: REFERRING PHYSICIAN: YULI PEREZ MD DATE OF SERVICE: 07/25/19 Discharge Plan Patient Name: JEANETH FARRELL Facility: [facility]:[place] : 1960 Planned Disposition: Home Anticipated Discharge Date: 07/25/19 Discharge Date: Expected LOS: 1 Initial Reviewer: [email or web address] Initial Review Date: 07/25/2019 Generated: 07/25/19 2:53 pm Comments DCP- Discharge Planning Updated by [email or web address]: Lavelle Yee on 07/25/19 12:[address] Patient Name: JEANETH FARRELL Admission Status: ER Accout number: [id number] Admission Date: 07-24-2019 : 1960 Admission Diagnosis: Attending: YULI PEREZ Current LOS: 1 Anticipated DC Date: 07-25-2019 Planned Disposition: Home Primary Insurance: [place] [employer] Discharge Planning Comments: CM MET WITH PT IN ROOM TO DISCUSS DISCHARGE PLANNING AND NEEDS. PT REPORTS LIVING AT HOME INDEPENDENTLY WITH HER SPOUSE. PT HAS WALKER AND BEDSIDE COMMODE THAT SHE DOES NOT USE AND HAS NO MEDICAL EQUIPMENT PROVIDER PREFERENCE. PT HAS NO OUTSIDE SERVICES ASSISTING IN THE HOME. CM DISCUSSED AVAILABILITY OF HOME HEALTH, REHAB SERVICES AND MEDICAL EQUIPMENT. PT DENIES DISCHARGE NEEDS, REPORTS HER SPOUSE WILL PICK HER UP FOR DISCHARGE HOME. HUMAN RESOURCES OPERATIONS MANAGER NURSE NOTIFIED. Skimmer Reverberatory: Lavelle Yee DCPIA - Discharge Planning Initial Assessment Updated by [email or web address]: Lavelle Yee on 07/25/19 1:46 pm * Is the patient Alert and Oriented? Yes * How many steps to enter\exit or inside your home? NONE * PCP DR. RAMOS * Pharmacy [facility], [place] * Preadmission Environment Home with Family * ADLs Independent * Equipment Bedside Commode Cane * Other Equipment NO MEDICAL EQUIPMENT PROVIDER PREFERNCE * List name and contact numbers for known caregivers / representatives who currently or will assist patient after discharge: GARETH FARRELL, SPOUSE, * Verbal permission to speak to the caregivers and representatives has been obtained from the patient. N/A * Community resources currently utilized None * Please name any agencies selected above. NONE * Additional services required to return to the preadmission environment? No * Can the patient safely return to the preadmission environment? Yes * Has this patient been hospitalized within the prior 30 days at any hospital? No Patient Name: JEANETH FARRELL Page [phone] at 1353 All edits/amendments must be made on the electronic document DICTATION DATE: 07/25/19 1353 POLICE JUDGE: FRANCO 07/25/19 1353 RPT#: [id number] DC DATE: STATUS: ADM IN [facility] [address] [place] [address] END OF REPORT
--- NOTE | 2019-07-25 14:11 | NUR ---
PT DISCHARGED. IV DCD WITH TIP INTACT. INSTRUCTIONS GIVEN TO PT AND . RIGHT GROIN SOFT WITH DRSG DRY AND INTACT. NO BLEEDING OR SWELLING. TO PRIVATE CAR PER WHEELCHAIR
== END 2019-07-25 14:16 | disposition home or self-care (01) | DRG 280 ==
LOC: D.ER 17:41 → OBSVTIME 21:37 → D.M2 21:37
PROVIDERS: Emergency Medicine; Family Medicine; Internal Medicine Interventional Cardiology; ADMIT Legal Medicine; ATTEND Legal Medicine
PROC: B2151ZZ Fluoroscopy of Left Heart using Low Osmolar Contrast (ICD-10-PCS; 2019-07-25)
PROC: 4A023N7 Measurement of Cardiac Sampling and Pressure, Left Heart, Percutaneous Approach (ICD-10-PCS; 2019-07-25)
PROC: B2111ZZ Fluoroscopy of Multiple Coronary Arteries using Low Osmolar Contrast (ICD-10-PCS; principal; 2019-07-25 09:30)
DX: I21.4 Non-ST elevation (NSTEMI) myocardial infarction (principal); I50.21 Acute systolic (congestive) heart failure; I24.9 Acute ischemic heart disease, unspecified; R55 Syncope and collapse; I25.10 Atherosclerotic heart disease of native coronary artery without angina pectoris; K21.9 Gastro-esophageal reflux disease without esophagitis; F41.8 Other specified anxiety disorders; W19.XXXA Unspecified fall, initial encounter; I11.0 Hypertensive heart disease with heart failure

== ENCOUNTER 2020-01-17 23:27 | Inpatient (IN) | payer BC ==
[~2020-01-17] VITALS: Ht 154.9 cm; Wt 79.1 kg
--- NOTE | ~2020-01-17 | HEMODYNAMI ---
PATIENT:JEANETH FARRELL MEDICAL RECORD: [id number] : 58 LOCATION:[facility] D.2140 [facility]# [id number] ADMISSION DATE: 01/18/20 Generatedon:01/19/202011:53 Patient name: JEANETH FARRELL Patient #: [id number] : 1960 Date of study: 01/19/2020 Page: Of Hemodynamic Procedure Report Patient Data Patient Demographics Procedure consent was obtained First Name: JEANETH Gender: Female Last Name: JAMI : 1960 Middle Initial: A Age: 59 year(s) Patient #: [id number] Race: SSN: [id number] Additional ID: [id number] Contact details Address: [address] [place] [address] State: [place] City: [facility] Zip code: [address] Past Medical History Allergies Allergen Reaction Date Comments Reported Other allergy 07/25/2019 PCN,latex Admission Admission Data Admission Date: 01/18/2020 Admission Time: 1:59 Arrival Date: 01/18/2020 Arrival Time: 1:59 Admit Source: Emergency Insurance Payor: Private department health insurance Room #: D.2140 [facility] #: [id number] Height (in.): 60.63 BSA: 1.79 (m2) Height (cm.): 154 BMI: 34.15 (kg/m2) Weight (lbs.): 178.58 Weight (kg.): 81 Lab Results Lab Result Date: 01/19/2020 Lab Result Time: 0:00 Biochemistry Name Units Result Min Max BUN mg/dl 13 --(--*-)-- 7 18 Creatinine mg/dl 1 --(--*-)-- 0.6 1.3 eGFR ml/min 60 *-(----)-- 90 120 NONAFRICAN CBC Name Units Result Min Max Hemoglobin g/dl 14.6 --(-*--)-- 13.5 17.5 Procedure Procedure Types Cath Procedure Diagnostic Procedure [facility] w/Coronaries Sedation Charges Moderate Sedation up to 15 minutes Procedure Description Procedure Date Procedure Date: 01/19/2020 Procedure Start Time: 11:27 Procedure End Time: 11:48 Procedure Staff Name Function Candido Enriquez MD Performing Physician Abby Eubanks RT Monitor Beto Valdez RT Scrub Nabila Mackay RN Nurse Procedure Data Cath Procedure Fluoroscopy Diagnostic fluoroscopy Total fluoroscopy Time: 1.9 time: 1.9 min min Diagnostic fluoroscopy Total fluoroscopy dose: 382 dose: 382 mGy mGy Contrast Material Contrast Material Type Amount (ml) Isovue 300 35 Entry Location Entry Primary Successful Side Size Upsize Upsize Entry Closure Campbell ccessful Closure Location (Fr) 1 (Fr) 2 (Fr) Remarks Device Remarks Femoral Right 5 Fr Manual artery Compression Femoral Right 5 Fr Exoseal vein Estimated blood loss: 5 ml Diagnostic catheters Device Type Used For End Catheter Placement MULTIPACK Pigtail 5 Fr LV Angiography catheter MULTIPACK JL 4.0 5Fr Left Coronary catheter Angiography MULTIPACK 3DRC 5Fr Right Coronary catheter Angiography Procedure Complications No complications Procedure Medications Medication Administration Route Dosage Versed I.V. 1 mg Fentanyl I.V. 25 mcg Benadryl I.V. 50 mg 0.9% NaCl I.V. bolus 500 ml Hemodynamics Rest BSA: 1.79 (m2) HGB: 14.6 (g/dl) O2 Consumption: Estimated: 166.91 (ml/min) O2 Co nsumption indexed: Estimated:93.25 (ml/min/m) Heart Rate: 66 (bpm) Pressure Samples Time Site Value (mmHg) Purpose Heart Use Rate(bpm) 11:35 LV 141/-13,8 Snapshot 80 11:35 LV 143/-11,10 EDP 91 Gradients Valve Time Site Site Mean SEP/DFP Peak To Heart Use 1 2 (mmHg) (sec/min) Peak Rate (mmHg) (bpm) Aortic 11:35 LV AO 86 Snapshots Pre Cath Intra NCS Post Cath Vital Signs Time Heart Resp SPO2 etCO2 NIBP (mmHg) Rhythm Pain Sedation Rate (ipm) (%) (mmHg) Status Level (bpm) 11:09:42 73 18 99 0 151/89(116) NSR 0 (11) 10(A) , No pain 11:14:04 69 19 100 22.4 157/88(127) NSR 0 (11) 10(A) , No pain 11:18:20 76 20 100 19.4 134/85(113) NSR 0 (11) 10(A) , No pain 11:22:36 66 11 100 29.8 148/83(121) NSR 0 (11) 10(A) , No pain 11:26:54 74 19 100 29.8 141/82(108) NSR 0 (11) 10(A) , No pain 11:31:12 76 21 100 24.6 149/86(112) NSR 0 (11) 10(A) , No pain 11:36:11 89 16 100 23.9 Measuring NSR 0 (11) 10(A) , No pain 11:36:19 91 15 100 29.1 135/72(106) NSR 0 (11) 10(A) , No pain 11:40:33 83 13 100 23.9 133/80(108) NSR 0 (11) 10(A) , No pain 11:44:45 84 18 100 31.3 138/89(123) NSR 0 (11) 10(A) , No pain 11:49:03 79 18 27.6 151/79(119) NSR 0 (11) 10(A) , No pain Medications Time Medication Route Dose Verified Delivered Reason Notes Effectiven ess by by 11:29:54 0.9% NaCl I.V. 500 Norliang Cyrie Per bolus ml Mina Mackay RN physician 11:30:24 Versed I.V. 1 mg Candido Dahl for Mina Mackay RN sedation 11:30:31 Fentanyl I.V. 25 Candido Cyrie for mcg Mina Mackay RN sedation 11:36:38 Benadryl I.V. 50 mg Candido Dahl Per Mina Mackay RN physician Procedure Log Time Note 10:34:26 Informed consent obtained and on chart 10:34:29 Admit Source: Emergency department 10:34:43 Procedure Status Urgent Heart Cath (IP). 10:34:45 Time tracking: Call back (After hours or weekends) 10:34:49 Plan of Care:Hemodynamics will remain stable., Cardiac rhythm will remain stable., Comfort level will be maintained., Respiratory function will remain adequate., Patient/ family verbilizes understanding of procedure., Procedure tolerated without complication., Recovers from procedure without complications.. 10:35:42 Nabila Mackay RN sent for patient. Start room use. 10:53:07 Arrival Date: 01/18/2020 1:59:00 AM 10:53:29 Insurance Payor : Private health insurance 10:53:59 Patient Height : 60.63 inches 10:54:03 Patient Weight : 178.58 lbs 10:54:45 Lab Result : Hemoglobin 14.6 g/dl 10:54:45 Lab Result : eGFR NONAFRICAN 60 ml/min 10:54:45 Lab Result : BUN 13 mg/dl 10:54:45 Lab Result : Creatinine 1 mg/dl 10:54:54 Patient received from Med II to CCL 1 Alert and oriented. Tansferred to table in Supine position. 10:54:56 Warm blankets applied, and latha hugger turned on for patient comfort. 10:54:56 Correct patient and procedure confirmed by team. 10:54:57 ECG and BP/O2 sat monitors applied to patient. 10:55:26 Diagnostic Cath Status : Urgent 11:08:37 Vital chart was started 11:10:33 Baseline sample Acquired. 11:10:38 Rhythm: sinus rhythm 11:10:39 Full Disclosure recording started 11:10:44 H&P Date Dictated: 01/19/2020 New H&P dictated by physician.. 11:10:45 Pre-procedure instructions explained to patient. 11:10:45 Pre-op teaching completed and patient verbalized understanding. 11:10:55 Family in patients room. 11:10:57 Patient NPO since Midnight. 11:11:03 Is the patient allergic to Iodine/contrast media? No. 11:11:04 Was the patient premedicated? Yes 11:11:05 Is patient on blood thinner?Yes 11:11:08 ACC The patient was administered the following blood thiners within the last 24 hours: ACCPlavix 11:11:11 Patient diabetic? No. 11:11:23 Previous problem with sedation/anesthesia? No ? 11:11:25 Snore? Yes 11:11:27 Sleep apnea? No 11:11:29 Deviated septum? No 11:11:49 Opens mouth fully? Yes 11:11:50 Sticks out tongue? Yes 11:11:52 Airway obstruction? No ? 11:11:55 Dentures? No ? 11:12:11 Pre procedure: right dorsailis pedis pulse 2+ Normal; easily identifiable; not easily obliterated 11:12:14 Pre procedure: left dorsailis pedis pulse 2+ Normal; easily identifiable; not easily obliterated 11:12:31 Patient pain scale 0/10 ?. 11:12:47 IV left forearm D/C'd due to infiltration. 11:13:05 Lab results completed and on chart. 11:17:35 Risk of Mortality: 0.2 11:17:42 Risk of blood transfusion: 0.6 11:18:05 Risk of KAMALJIT: 1.4 11:18:19 Right groin area was prepped with chlora-prep and draped in sterile fashion 11:18:19 Alarms reviewed by R. N. 11:18:20 Sharps counted by scrub and verified by R.N. 11:19:28 Physician arrived 11:19:29 --------ALL STOP TIME OUT------ 11:19:30 Final Timeout: patient, procedure, and site verified with staff and physician. All members of the team are in agreement. 11:19:33 Right groin site verified by team. 11:19:37 Fire Safety Assessment: A--An alcohol-based skin anteseptic being used preoperatively., C--Open oxygen or nitrous oxide is being used., D--An ESU, laser, or fiber-optic light is being used. 11:19:41 Physical assessment completed. ASA score P 2 - A patient with mild systemic disease as per Candido Enriquez MD. 11:19:56 2) 60-89 Mildly reduced kidney function, and other findings (as for stage 1) point to kidney disease. 11:20:22 Maximum allowable contrast dose (3.7 X eGFR X 0.75)166 ml. 11:20:27 Sedation plan: IV Moderate Sedation Medication:Versed, Fentanyl 11:20:33 Use device set Femoral Dx 11:20:35 ACIST Syringe (32591) opened to sterile field. 11:20:35 Bag Decanter () opened to sterile field. 11:20:35 Medline Cath Pack ([id number]) opened to sterile field. 11:20:37 ACIST Hand Control (84289) opened to sterile field. 11:20:37 ACIST Manifold (60724) opened to sterile field. 11:20:38 DIAGNOSTIC Multipack 5Fr catheter set (TZ1431) opened to sterile field. 11:20:38 Tegaderm 4 x 4 (1626W) opened to sterile field. 11:20:40 SHEATH 5FR Central (SYC111) opened to sterile field. 11:20:40 EMERALD Guide Wire (962-411) opened to sterile field. 11:26:33 Procedure started. 11:27:59 Local anesthetic to right femoral artery with Lidocaine 2% by Candido Enriquez MD.INITIAL ACCESS ONLY 11:28:06 SHEATH 5FR Central (SZW897) opened to sterile field. 11:28:07 MICROPUNCTURE 4FR Cook (L82475) opened to sterile field. 11:28:18 A 5 Fr sheath was inserted into the Right Femoral artery 11:28:28 A 5 Fr sheath was inserted into the Right Femoral vein 11:29:44 patient arrived to photo lab specialist with an infiltrated IV; unable to gain IV access preprocedure; Dr Rey gaining femoral venous access 11:29:48 Zero performed for pressure channel P1 11:29:54 0.9% NaCl 500 ml I.V. bolus was administered by Nabila Mackay RN; Per physician; Verbal order read back and verified. 11:30:24 Versed 1 mg I.V. was administered by Nabila Mackay RN; for sedation; Verbal order read back and verified. 11:30:31 Fentanyl 25 mcg I.V. was administered by Nabila Mackay RN; for sedation; Verbal order read back and verified. 11:32:50 Access obtained with 4Fr micropunture. 11:33:49 A MULTIPACK Pigtail 5 Fr catheter was advanced over the wire and used for LV Angiography. 11:35:31 LV hemodynamics recorded. 11:35:32 LV gram done using FIGUEROA 11:35:35 Injector settings: Ml/sec: 12, Volume: 8, 11:36:06 EF : 55 % 11:36:16 Catheter removed. 11:36:20 A MULTIPACK JL 4.0 5Fr catheter was advanced over the wire and used for Left Coronary Angiography. 11:36:38 Benadryl 50 mg I.V. was administered by Nabila Mackay RN; Per physician; Verbal order read back and verified. 11:37:26 LCA angiography performed. 11:37:29 Injector settings: Ml/sec: 2, Volume: 4, 11:40:46 Catheter removed. 11:40:53 A MULTIPACK 3DRC 5Fr catheter was advanced over the wire and used for Right Coronary Angiography. 11:42:15 RCA angiography performed. 11:42:18 ACCDominant side:Right 11:42:49 Catheter removed. 11:42:53 Injector settings: Ml/sec: 2, Volume: 4, 11:43:11 EXOSEAL 5Fr (EX500) opened to sterile field. 11:43:16 Sheath removed intact; hemostasis achieved with Exoseal to the Right Femoral vein. 11:43:18 Procedure ended.(Physican Out) 11:43:44 Fluoroscopy time 01.90 minutes. 11:43:53 Fluoroscopy dose: 382 mGy 11:43:53 Flurop Dose total: 382 11:43:59 Dose Area Product 30977 mGy/cm. 11:44:03 Contrast amount:Isovue 300 35ml. 11:44:05 Maximum allowable dose exceeded? No. 11:44:06 Sharps counted by scrub and verified by R.N. 11:44:51 Insertion/operative site no bleeding no hematoma. 11:44:54 Post-op/insertion site Right Femoral artery dressed using a 4 x 4 and Tegaderm. 11:45:04 Sheath removed intact; hemostasis achieved with Manual Compression to the Right Femoral artery. 11:45:07 Post Procedure Pulses reassessed and unchanged 11:45:10 Post procedure rhythm: unchanged. 11:45:13 Estimated blood loss: 5 ml 11:45:30 Post procedure instruction explained to patient.Patient verbalizes understanding. 11:45:31 Patient needs reinforcement of post procedure teaching. 11:48:23 Procedure type changed to Cath procedure, Diagnostic procedure, LHC, C w/Coronaries, Sedation Charges, Moderate Sedation up to 15 minutes 11:48:24 Procedure and supply charges have been captured, reviewed, submitted and are correct. 11:48:30 Procedure Complication : No complications 11:48:33 Vital chart was stopped 11:48:36 [facility] Findings: MVD- MD will discuss options w/ pt 11:48:37 Operative report dictated upon procedure completion. 11:48:38 See physician's report for complete and final results. 11:48:40 Report given to Med II. 11:48:43 Patient transfered to Med II with Stretcher. 11:48:46 Procedure ended. 11:48:46 Full Disclosure recording stopped 11:49:00 End room use (Document Last) 11:52:03 End room use (Document Last) 11:52:23 End room use (Document Last) Device Usage Item Name Manufacture Quantity Catalog Hospital Part Current Minimal Lot# / Number Charge Number Stock Stock Serial# Code ACIST Syringe Acist 1 79855 803915 953493 039779 20 (76602) Medical Systems Inc Bag Decanter Microtek 1 2001S 795518 30092 337234 5 (2001S) Medical Inc. Medline Cath Medline 1 [id number] 614850 17067 365007 5 Pack ([id number]) ACIST Hand Acist 1 32989 335829 654075 034294 5 Control Medical (13171) Systems Inc ACIST Acist 1 01720 844871 854243 208063 5 Manifold Medical (72894) Systems Inc DIAGNOSTIC Cardinal 1 [id number] 086757 32071 331920 30 Multipack 5Fr Health catheter set (DM8293) Tegaderm 4 x 3M 1 1626W 973552 631832 130512 5 4 (1626W) SHEATH 5FR Terumo 2 HUA206 659021 295827 442163 5 Central (RXY636) EMERALD Guide Cardinal 1 502-455 561689 320237 815580 5 Wire Health (502-455) MICROPUNCTURE Cook Medical 1 G53396 168059 564600 154202 5 4FR Cook (Y07669) MULTIPACK Cardinal 1 467505 5 Pigtail 5 Fr Health catheter MULTIPACK JL Cardinal 1 627450 5 4.0 5Fr Health catheter MULTIPACK Cardinal 1 397104 5 3DRC 5Fr Health catheter EXOSEAL 5Fr Cardinal 1 EX500 196371 292162 981623 10 (EX500) Health Signature Audit [place] Stage Time Signature Unsigned Intra-Procedure 01/19/2020 Abby Eubanks 11:52:03 AM RT(R) Intra-Procedure 01/19/2020 Nabila Mackay RN 11:52:23 AM Intra-Procedure 01/19/2020 Candido Enriquez MD 11:53:[address] [address]
[~2020-01-17 23:27] MED LIST changes: +COZAAR25 MG PO; +NEURONTIN600 MG PO
[2020-01-17 23:48] LABS: BASOPHILS 0.2 % (0-2); EOSINOPHILS 0.1 % (0-7); HEMATOCRIT 41.3 % (36.0-48.0); HEMOGLOBIN 14.7 g/dL (12-16); IMMATURE GRANULOCYTES 0.5 % (0-5); LYMPHOCYTES 12.9 % (15-50); MCH 32.5 pg (26.0-34.0); MCHC 35.6 g/dL (31.0-37.0); MCV 91.2 fL (80.0-100.0); MEAN PLATELET VOLUME 10.4 fL (7.4-10.4); MONOCYTES 8.2 % (2-11); NEUTROPHILS 78.1 % (40-80); PLATELET COUNT 206 10x3/uL (130-400); RBC 4.53 10x6/uL (4.00-5.40); RDW 13.9 % (11.5-14.5); WBC 11.7 10x3/uL (4.8-10.8)
[2020-01-17 23:58] LABS: APTT 22.6 SECONDS (22.8-39.4); INR 1.04 (0.85-1.17); PROTIME 13.6 SECONDS (11.6-15.0)
[2020-01-18] VITALS (7 sets, daily range): BP systolic 91–131; BP diastolic 50–74; BMI 34.0
[2020-01-18 00:24] LABS: ALKALINE PHOSPHATASE 18 U/L (30-120); BILIRUBIN - TOTAL 0.63 mg/dL (0.2-1.3); CKMB 4.5 U/L (0.0-3.6); PRO BNP 107 pg/mL (0-125); TROPONIN-I 0.025 ng/mL (0.000-0.060); UREA NITROGEN 4 mg/dL (7-18)
[2020-01-18 00:36] LABS: ALBUMIN 4.3 g/dL (3.4-5.0); ALT (SGPT) 14 U/L (10-68); CALCIUM 9.1 mg/dL (8.5-10.1); CHLORIDE - SERUM 98 mmol/L (98-107); CREATINE KINASE 73 UL (21-215); CREATININE - SERUM 0.8 mg/dL (0.6-1.3); POTASSIUM - SERUM 3.7 mmol/L (3.5-5.1); PROTEIN - SERUM 7.4 g/dL (6.4-8.2); SODIUM 136 mmol/L (136-145); eGFR NON AFRICAN AMERICAN 77 mL/min (90-120)
--- NOTE | 2020-01-18 00:42 | NUR ---
ANSWERED PT'S CALL LIGHT, HEAD OF BED ADJUSTED TO LEVEL OF COMFORT. PT STATES SHE IS STILL HAVING NAUSEA, EDP INFORMED.
[2020-01-18 00:52] LABS: CALC OSMOLALITY 273 mosm/kg (275-300); GLUCOSE 188 mg/dL (74-106)
[2020-01-18 00:53] LABS: CARBON DIOXIDE 45.1 mmol/L (21.0-32.0)
--- NOTE | 2020-01-18 02:24 | NUR ---
PT PLACED ON 2L NC PER REQUEST STATES SHE WEARS 2L NC AT NIGHT. 98% ON 2L NC.
--- NOTE | 2020-01-18 03:47 | NUR ---
PT ASSISTED UP TO BEDSIDE COMMODE.
--- NOTE | 2020-01-18 04:14 | NUR ---
PT GIVEN SPRITE TO DRINK, TOLERATED WELL. PT DENIES ANY FURTHER NEEDS AT THIS TIME, CALL LIGHT WITHIN REACH. WILL CONTINUE TO MONITOR.
[2020-01-18 04:28] LABS: CKMB 0.6 U/L (0.0-3.6); CREATINE KINASE 40 UL (21-215); TROPONIN-I 0.016 ng/mL (0.000-0.060)
--- NOTE | 2020-01-18 08:04 | NUR ---
PT RESTING COMFORTABLY. BREATHS EVEN/REGULAR AND UNALBORED. NOS IGNS OR SYMTPOMS OF ACUTE DISTRESS NOTED AT THIS TIME. CL IN REACH, SRX2. NO FAMILY AT BEDSIDE.
[2020-01-18 09:42] LABS: CKMB 1.6 U/L (0.0-3.6); CREATINE KINASE 94 UL (21-215)
[2020-01-18 09:44] LABS: TROPONIN-I < 0.017 ng/mL (0.000-0.060)
[2020-01-18 15:51] LABS: CKMB 1.4 U/L (0.0-3.6); CREATINE KINASE 80 UL (21-215)
[2020-01-18 16:06] LABS: TROPONIN-I < 0.017 ng/mL (0.000-0.060)
[2020-01-19 06:35] LABS: BASOPHILS 0.5 % (0-2); EOSINOPHILS 1.1 % (0-7); HEMOGLOBIN 14.6 g/dL (12-16); IMMATURE GRANULOCYTES 0.3 % (0-5); LYMPHOCYTES 31.8 % (15-50); MCH 32.2 pg (26.0-34.0); MEAN PLATELET VOLUME 10.8 fL (7.4-10.4); MONOCYTES 11.7 % (2-11); NEUTROPHILS 54.6 % (40-80); PLATELET COUNT 226 10x3/uL (130-400); RBC 4.53 10x6/uL (4.00-5.40); RDW 14.7 % (11.5-14.5); WBC 9.4 10x3/uL (4.8-10.8)
[2020-01-19 06:36] LABS: MCV 94.9 fL (80.0-100.0)
[2020-01-19 07:04] LABS: PLATELET ESTIMATE NORMAL
[2020-01-19 08:14] LABS: ALBUMIN 4.1 g/dL (3.4-5.0); BILIRUBIN - TOTAL 0.91 mg/dL (0.2-1.3); CALCIUM 9.2 mg/dL (8.5-10.1); POTASSIUM - SERUM 3.6 mmol/L (3.5-5.1); PROTEIN - SERUM 7.4 g/dL (6.4-8.2)
[2020-01-19 08:18] LABS: ANION GAP 17.8 mmol/L (8-16); CARBON DIOXIDE 21.8 mmol/L (21.0-32.0)
--- NOTE | 2020-01-19 09:40 | EC ---
PATIENT:JEANETH FARRELL DATE OF SERVICE: 01/18/20 SEX: F MEDICAL RECORD: [id number] DATE OF : 58 LOCATION:D.M2 D.214 AGE OF PATIENT: 59 ADMISSION DATE: 01/18/20 REFERRING PHYSICIAN: INTERPRETING PHYSICIAN: GENNY FIGUEROA MD ECHOCARDIOGRAM REPORT ECHO CHARGES 4 ECHO COMPLETE Date: 01/18/20 CLINICAL DIAGNOSIS: PERICARDIAL EFFUSION ECHOCARDIOGRAPHIC MEASUREMENTS (adult normal given) AC root (d.<3.7cm) 2.9 cm LV Septum d (<1.2 cm> 0.9 cm Valve Excursion 1.8 cm LV Septum (systole) 1.3 cm Left Atria (s.<4.0cm> 3.4 cm LVPW d(<1.2cm) 1.1 cm RV (d.<2.3cm) 3.0 cm LVPW (sytole) 1.2 cm LV diastole(<5.6CM) 5.0 cm MV E-F(>70mm/sec) cm LV systole 3.4 cm LVOT Diameter 1.5 cm MV exc.(>10mm) cm Est.ejection fraction (50-75%) % DOPPLER: LVIT cm/sec A 96 cm/sec E 77 cm/sec LA cm/sec RVSP 25.1 mmHg LVOT 108 cm/sec AOP1/2T m/s Asc. Ao 146 cm/sec RVOT 66 cm/sec RA cm/sec PA 99 cm/sec AV Gradient Peak 8.5 mmHg AV Mean 4.9 mmHg AV Area 1.2 cm MV Gradient Peak 3.3 mmHg MV Mean 1.9 mmHg MV Area cm COMMENTS: Picking Tech: Belia MARTE Senior Security Analyst: 4 Dr. Figueroa TAPE# PACS Pericardial Effusion N DATE OF SERVICE: PROCEDURE: Transthoracic echocardiogram. FINDINGS: Left ventricle is difficult to visualize could not determine wall motion abnormalities very well. The overall function appears to be normal to slightly low, may be in the 45% to 50% range. The inflow characteristics are consistent with diastolic dysfunction. The left atrium is normal size; shape, and function. ECHOCARDIOGRAM REPORT [id number] JEANETH FARRELL Aortic valve is normal structure and function. Mitral valve is normal structure and function. Tricuspid valve is normal in structure and function. Right ventricle is mildly dilated. Right atrium is normal size. Pulmonic valve not well visualized. Pericardium appears to be normal. TRANSINT:[id number] Voice Confirmation ID: [id number] DOCUMENT ID: [id number] GENNY FIGUEROA MD at 0940 CC: [id number] DICTATION DATE: 01/18/20 174 COMMUNITY RECREATION PROGRAMMER: 01/19/20 0232 ADM IN [facility] [address] [place] [address]
[2020-01-19 09:44] VITALS: BP 132/70
--- NOTE | 2020-01-19 09:44 | NUR ---
ADMINISTERED PREOP NITRO AND PLAVIX. UNABLE TO GIVE IV BENADRLY DUE TO IV INFILTRATION. 2 ATTEMPTS WERE MADE TO START NEW IV, UNABLE TO. WILL INFORM WORM FARMER WHEN THEY ARRIVE.
--- NOTE | 2020-01-19 10:49 | NUR ---
PT TO BILINGUAL EXECUTIVE ASSISTANT
--- NOTE | 2020-01-19 13:23 | NUR ---
ADMINISTERED PRN NORCO FOR PAIN. RESTING COMFORTABLY IN BED. WILL CONTINUE TO MONITOR.
[2020-01-19 13:38] VITALS: BP 126/79
--- NOTE | 2020-01-19 13:52 | NUR ---
REMOVED SHEATH FROM RIGHT GROIN, PRESSURE HELD FOR 5+ MINUTES, STERILE BANDAGE APPLIED. PT TOLERATED WELL. RESTING IN BED. WILL REMAIN FLAT UNTIL 1530. WILL CONTINUE TO MONITOR.
--- NOTE | 2020-01-19 15:59 | NUR ---
ADMINISTERED MEDICATION AT THIS TIME. NO DIFFICULTIES. PT FLAT TIME IS UP, PT IS INCLINED IN BED. RESTING COMFORTABLY. DENIES ANY NEEDS. WILL CONTINUE TO MONITOR.
--- NOTE | 2020-01-19 16:16 | NUR ---
I have reviewed this patient and I concur with the Shift Assessment completed by the Licensed Practical Nurse today this shift.
--- NOTE | 2020-01-19 16:53 | NUR ---
I have reviewed this patient and I concur with the Shift Assessment completed by the Licensed Practical Nurse today this shift.
--- NOTE | 2020-01-19 17:30 | NUR ---
ADMINISTERED PRN PAIN MEDICATION FOR BACK/HIP PAIN. PT IS UPRIGHT IN BED EATING DINNER. HEART CATH SITE STILL CLEAN/DRY/INTACT. PT STATES FEELING WELL OTHER THAN BACK PAIN. DENIES ANY OTHER NEEDS. WILL CONTINUE TO MONITOR. PT DID NOT TAKE MORNING MEDICATION DUE TO NPO ORDER (LASIX AND BLOOD PRESSURE MEDICATIONS) HAS HAD 2 DOSES OF NARCOTICS AND BLOOD PRESSURE IS STILL STABLE. PT BELIEVES MORNING MEDICATIONS ARE THE CAUSE OF LOW BLOOD PRESSURE
[2020-01-19 17:45] VITALS: BP 111/69
[2020-01-19 20:00] VITALS: BP 137/76
[2020-01-20] VITALS: BP 103/62
--- NOTE | 2020-01-20 03:00 | NUR ---
THIS NURSE WAS ABLE TO ESTABLISH A 20G IV IN PT'S RT FOREARM. X2 STICKS. IV PATENT AND FLUSHES. NO S/S OF DISTERESS. BED LOW CALL LIGHT WIOTHIN REACH. WILL CONTINUE TO MONOITTOR.
[2020-01-20 04:00] VITALS: BP 125/68
[2020-01-20 06:18] LABS: BASOPHILS 0.5 % (0-2); HEMATOCRIT 42.4 % (36.0-48.0); IMMATURE GRANULOCYTES 0.3 % (0-5); MCH 31.5 pg (26.0-34.0); MCV 95.5 fL (80.0-100.0); MEAN PLATELET VOLUME 10.7 fL (7.4-10.4); MONOCYTES 12.7 % (2-11); NEUTROPHILS 49.5 % (40-80); RBC 4.44 10x6/uL (4.00-5.40); RDW 14.3 % (11.5-14.5); WBC 7.3 10x3/uL (4.8-10.8)
[2020-01-20 06:22] LABS: PLATELET COUNT 174 10x3/uL (130-400)
[2020-01-20 06:47] LABS: ANION GAP 9.4 mmol/L (8-16); CALCIUM 8.7 mg/dL (8.5-10.1); POTASSIUM - SERUM 3.1 mmol/L (3.5-5.1); T4 THYROXIN - FREE 0.99 ng/dL (0.76-1.46); THYROID STIMULATING HORMONE 1.53 uIU/mL (0.36-3.74)
[2020-01-20 06:54] LABS: CARBON DIOXIDE 30.7 mmol/L (21.0-32.0)
--- NOTE | 2020-01-20 07:50 | NUR ---
REPORT RECIEVED. PT SITTING SEMI FOWLERS IN BED. RR EVEN AND UNLABORED ON RA. SHE HAS A R WRIST PIV THAT IS SL. BED LOCKED AND IN LOWEST POSITION, CALL LIGHT WITHIN REACH. WILL CTM
[2020-01-20 09:22] VITALS: BP 137/73
[2020-01-20 13:56] VITALS: BP 96/59
[2020-01-20 14:25] VITALS: Ht 154.9 cm; Wt 79.1 kg
[2020-01-20 18:54] VITALS: BP 112/67
--- NOTE | 2020-01-20 19:13 | NUR ---
I have reviewed this patient and I concur with the Shift Assessment completed by the Licensed Practical Nurse today this shift.
--- NOTE | 2020-01-20 20:00 | NUR ---
PT IS RESTING IN BED WITH EYES OPEN. ALERT AND ORIENTED X 3. DENIES ACUTE PAIN OR DISCOMFORT AT THIS TIME. NO NEEDS VOICED. RFA SALINE LOCK NOTED. TELEMETRY UNIT IS ON AND INTACT. RIGHT GROIN INSERTION SITE IS WNL. SR'S ARE UP X 2 IN BED. CALL LIGHT AND BEDSIDE TABLE ARE WITHIN EASY REACH.
[2020-01-20 21:45] VITALS: BP 117/66
--- NOTE | 2020-01-20 22:30 | NUR ---
PT RESTING IN BED WATCHING TV. NO NEEDS VOICED.
[2020-01-21 00:06] VITALS: BP 96/63
--- NOTE | 2020-01-21 01:00 | NUR ---
PT IS RESTING QUIETLY IN BED WITH EYES CLOSED. RESPS ARE EVEN AND UNLABORED. NO ACUTE DISTRESS NOTED.
[2020-01-21 04:11] VITALS: BP 101/51
--- NOTE | 2020-01-21 04:34 | NUR ---
PT IS RESTING IN BED WITH EYES CLOSED. NO DISTRESS NOTED.
[2020-01-21 05:06] LABS: BASOPHILS 0.3 % (0-2); EOSINOPHILS 2.7 % (0-7); HEMATOCRIT 41.5 % (36.0-48.0); HEMOGLOBIN 13.6 g/dL (12-16); IMMATURE GRANULOCYTES 0.4 % (0-5); LYMPHOCYTES 36.3 % (15-50); MCH 31.3 pg (26.0-34.0); MCHC 32.8 g/dL (31.0-37.0); MCV 95.4 fL (80.0-100.0); MEAN PLATELET VOLUME 10.9 fL (7.4-10.4); MONOCYTES 8.8 % (2-11); NEUTROPHILS 51.5 % (40-80); PLATELET COUNT 192 10x3/uL (130-400); RBC 4.35 10x6/uL (4.00-5.40); RDW 14.5 % (11.5-14.5); WBC 7.8 10x3/uL (4.8-10.8)
[2020-01-21 06:00] LABS: ANION GAP 10.8 mmol/L (8-16); CALCIUM 9.2 mg/dL (8.5-10.1); CARBON DIOXIDE 29.6 mmol/L (21.0-32.0); POTASSIUM - SERUM 3.4 mmol/L (3.5-5.1)
[2020-01-21 08:00] VITALS: BP 116/71
[2020-01-21] MEDS ORDERED: RANEXA500 MG PO (09:51)
[2020-01-21 12:00] VITALS: BP 107/71
--- NOTE | 2020-01-21 12:10 | NUR ---
I have reviewed this patient and I concur with the Shift Assessment completed by the Licensed Practical Nurse today this shift.
--- NOTE | 2020-01-21 13:07 | NUR ---
DC PAPERWORK GONE OVER AND SIGNED WITH PT. ALL QUESTIONS ANSWERED. PIV REMOVED, CATH TIP FULLY INTACT. ALL VALUBLES REMOVED FROM ROOM, PT WHEELED DOWNSTAIRS.
== END 2020-01-21 13:13 | disposition home or self-care (01) | DRG 287 ==
LOC: D.ER 23:27 → D.M2 01-18 01:59 → D.SDCHOLD 01-20 14:25 → D.M2 01-21 13:13
PROVIDERS: Family Medicine; Internal Medicine Cardiovascular Disease; Legal Medicine; ADMIT Emergency Medicine; ATTEND Emergency Medicine
PROC: B2151ZZ Fluoroscopy of Left Heart using Low Osmolar Contrast (ICD-10-PCS; 2020-01-19)
PROC: 4A023N7 Measurement of Cardiac Sampling and Pressure, Left Heart, Percutaneous Approach (ICD-10-PCS; 2020-01-19)
PROC: B2111ZZ Fluoroscopy of Multiple Coronary Arteries using Low Osmolar Contrast (ICD-10-PCS; principal; 2020-01-19 10:35)
DX: I25.110 Atherosclerotic heart disease of native coronary artery with unstable angina pectoris (principal); R10.9 Unspecified abdominal pain; R11.2 Nausea with vomiting, unspecified; J44.9 Chronic obstructive pulmonary disease, unspecified

== ENCOUNTER 2020-04-10 00:12 | Inpatient (IN) | payer MEDICAID ==
[2020-04-10] VITALS (7 sets, daily range): BP systolic 100–176; BP diastolic 41–88; BMI 27.4
[~2020-04-10] VITALS: Ht 154.9 cm; Wt 78.9 kg
[~2020-04-10 00:12] MED LIST changes: +RANEXA500 MG PO
[2020-04-10 02:24] LABS: BASOPHILS 0.1 % (0-2); EOSINOPHILS 0.1 % (0-7); HEMATOCRIT 38.4 % (36.0-48.0); HEMOGLOBIN 13.2 g/dL (12-16); IMMATURE GRANULOCYTES 0.6 % (0-5); LYMPHOCYTES 6.7 % (15-50); MCH 33.7 pg (26.0-34.0); MCHC 34.4 g/dL (31.0-37.0); MEAN PLATELET VOLUME 9.1 fL (7.4-10.4); MONOCYTES 7.3 % (2-11); NEUTROPHILS 85.2 % (40-80); RBC 3.92 10x6/uL (4.00-5.40); RDW 14.2 % (11.5-14.5); WBC 18.8 10x3/uL (4.8-10.8)
[2020-04-10 02:28] LABS: PLATELET COUNT 270 10x3/uL (130-400)
[2020-04-10 02:29] LABS: BILIRUBIN NEGATIVE (NEGATIVE); KETONE LARGE mg/dL (NEGATIVE); NITRITE NEGATIVE (NEGATIVE); UROBILINOGEN NORMAL mg/dL (< 2)
[2020-04-10 02:31] LABS: BACTERIA MODERATE /HPF (NONE SEEN); EPITHELIAL CELLS 0-5 /hpf (0-5); WHITE CELLS - URINE 0-5 HPF (0-4)
[2020-04-10 03:25] LABS: CALC OSMOLALITY 275 mosm/kg (275-300); CALCIUM 9.3 mg/dL (8.5-10.1); CHLORIDE - SERUM 97 mmol/L (98-107); CREATININE - SERUM 0.9 mg/dL (0.6-1.3); GLUCOSE 116 mg/dL (74-106); POTASSIUM - SERUM 3.2 mmol/L (3.5-5.1); SODIUM 137 mmol/L (136-145); UREA NITROGEN 16 mg/dL (7-18); eGFR NON AFRICAN AMERICAN 67 mL/min (90-120)
[2020-04-10 03:43] LABS: ALBUMIN 3.5 g/dL (3.4-5.0); ALKALINE PHOSPHATASE 80 U/L (30-120); ALT (SGPT) 8 U/L (10-68); BILIRUBIN - TOTAL 0.78 mg/dL (0.2-1.3); C-REACTIVE PROTEIN 0.7 mg/dL (0.0-0.9); LIPASE 56 U/L (73-393); MAGNESIUM - SERUM 1.7 mg/dL (1.8-2.4); PRO BNP 621 pg/mL (0-125); PROTEIN - SERUM 7.2 g/dL (6.4-8.2)
[2020-04-10 03:46] LABS: TROPONIN-I < 0.017 ng/mL (0.000-0.060)
[2020-04-10 03:49] LABS: INR 1.08 (0.85-1.17); PROTIME 13.9 SECONDS (11.6-15.0)
[2020-04-10 04:22] LABS: APTT < 20.0 SECONDS (22.8-39.4)
--- NOTE | 2020-04-10 07:01 | NUR ---
REPORT GIVEN TO CLIVE LINO
[2020-04-11 05:33] VITALS: BP 118/58
[2020-04-11 07:09] LABS: BASOPHILS 0.1 % (0-2); EOSINOPHILS 0.2 % (0-7); HEMATOCRIT 35.2 % (36.0-48.0); HEMOGLOBIN 11.9 g/dL (12-16); IMMATURE GRANULOCYTES 0.6 % (0-5); MCH 32.9 pg (26.0-34.0); MCHC 33.8 g/dL (31.0-37.0); MCV 97.2 fL (80.0-100.0); MEAN PLATELET VOLUME 9.8 fL (7.4-10.4); MONOCYTES 8.8 % (2-11); NEUTROPHILS 74.3 % (40-80); PLATELET COUNT 252 10x3/uL (130-400); RBC 3.62 10x6/uL (4.00-5.40); RDW 14.7 % (11.5-14.5)
[2020-04-11 07:11] LABS: WBC 11.9 10x3/uL (4.8-10.8)
[2020-04-11 08:08] LABS: ALBUMIN 3.2 g/dL (3.4-5.0); ALKALINE PHOSPHATASE 66 U/L (30-120); ALT (SGPT) 10 U/L (10-68); BILIRUBIN - TOTAL 0.83 mg/dL (0.2-1.3); CALC OSMOLALITY 278 mosm/kg (275-300); CALCIUM 8.6 mg/dL (8.5-10.1); CHLORIDE - SERUM 100 mmol/L (98-107); CREATININE - SERUM 0.8 mg/dL (0.6-1.3); GLUCOSE 91 mg/dL (74-106); SODIUM 139 mmol/L (136-145); UREA NITROGEN 16 mg/dL (7-18); eGFR NON AFRICAN AMERICAN 77 mL/min (90-120)
[2020-04-11 08:10] LABS: POTASSIUM - SERUM 2.8 mmol/L (3.5-5.1)
[2020-04-11 08:31] VITALS: BP 105/56
--- NOTE | 2020-04-11 08:35 | NUR ---
CALLED SULMA BENITEZ APRN AND NOTIFIED HIM OF CRITIAL K OF 2.8. NEW ORDERS TO START PT ON EP. ALSO INFORMED HIM THAT PT WANTS TO BE ON A CLEAR LIQUID DIET DUE TO NOT BEING ABLE TO KEEP FOOD DOWN. CLEAR LIQUID DIET ORDERED.
[2020-04-11 11:45] VITALS: BP 108/54
--- NOTE | 2020-04-11 12:38 | NUR ---
LT WRIST IV LEAKING. D/C IV WITH CATHETER TIP INTACT. NEW 22G IV STARTED TO RT FA X2 STICKS. GAVE 4MG OF MORPHINE FOR PAIN LEVEL OF 9/10 AND 4MG OF ZOFRAN FOR NAUSEA. PT DENIES ANY OTHER NEED AT THIS TIME. CALL LIGHT IN REACH,NAD NOTED,W I LL CONTINUE TO MONITOR.
[2020-04-11 16:26] VITALS: BP 96/50
--- NOTE | 2020-04-11 16:26 | NUR ---
4MG OF MORPHINE GIVEN FOR PAIN LEVEL OF 8/10, ALSO GAVE 4MG OF ZOFRAN FOR NAUSEA. PT DENIES ANY OTHER NEEDS AT THIS TIME. CALL LIGHT IN REACH,NAD NOTED, WILL CONTINUE TO MONITOR.
--- NOTE | 2020-04-11 20:12 | NUR ---
RECEIVED REPORT, WILL ASSUME CARE OF PT, IV-RFA NS @75, , ASSIST PT TO RESTROOM AND BACK TO BED, DENIES ANY NEEDS AT THIS TIME, BED IS LOW, SRX2, CALL LIGHT IN REACH, WILL CONTINUE PLAN OF CARE
[2020-04-11 20:52] VITALS: BP 103/57
[2020-04-12 00:10] VITALS: BP 108/45
--- NOTE | 2020-04-12 00:40 | NUR ---
I have reviewed this patient and I concur with the Shift Assessment completed by the Licensed Practical Nurse today this shift.
[2020-04-12 05:34] VITALS: BP 112/49
[2020-04-12 08:23] VITALS: BP 95/56
--- NOTE | 2020-04-12 09:50 | NUR ---
AM MEDS GIVEN AT THIS TIME. ALSO GAVE 4MG OF MORPHINE FOR PAIN LEVEL OF 8/10, AND 4MG OF ZOFRAN FOR NAUSEA. PT A/O X4, RESP EVEN AND NONLABORED ON RA. RT FA IV INFUSING NS AT 75CC/HR. PT DENIES ANY OTHER NEED AT THIS TIME. WILL CONTINUE PLAN OF CARE.
[2020-04-12 12:19] VITALS: BP 115/33
--- NOTE | 2020-04-12 13:44 | NUR ---
4MG OF MORPHINE GIVEN FOR PAIN LEVEL OF 8/10. ALSO GAVE 4MG OF ZOFRAN.
[2020-04-12 16:00] VITALS: BP 98/53
[2020-04-12 21:02] VITALS: BP 95/50
--- NOTE | 2020-04-12 23:15 | NUR ---
CONSENTS SIGNED AND PLACED IN CHART. QUESTIONS ANSWERED. C/O ABD PAIN OF 8, ON A SCALE OF 0-10, AND NAUSEA. PM MEDS, PRN ZOFRAN AND MORPHINE ADMINISTERED, PER ORDER. REQUESTING [place] [facility] [place], PROVIDED. DENIES ANY OTHER NEEDS AT THIS TIME. BED IN LOWEST, SRX2, CALL LIGHT WITHIN REACH. WILL CTM.
[2020-04-13] VITALS (7 sets, daily range): BP systolic 90–118; BP diastolic 38–67
[2020-04-13 08:40] LABS: BASOPHILS 0.2 % (0-2); EOSINOPHILS 1.9 % (0-7); HEMATOCRIT 32.6 % (36.0-48.0); HEMOGLOBIN 10.5 g/dL (12-16); IMMATURE GRANULOCYTES 0.4 % (0-5); LYMPHOCYTES 13.8 % (15-50); MCH 32.6 pg (26.0-34.0); MCHC 32.2 g/dL (31.0-37.0); MCV 101.2 fL (80.0-100.0); MEAN PLATELET VOLUME 10.1 fL (7.4-10.4); MONOCYTES 5.7 % (2-11); RBC 3.22 10x6/uL (4.00-5.40); WBC 10.7 10x3/uL (4.8-10.8)
[2020-04-13 08:49] LABS: CALCIUM 8.5 mg/dL (8.5-10.1); CARBON DIOXIDE 29.1 mmol/L (21.0-32.0); CREATININE - SERUM 0.9 mg/dL (0.6-1.3); POTASSIUM - SERUM 3.1 mmol/L (3.5-5.1)
[2020-04-13 08:58] LABS: PLATELET COUNT 146 10x3/uL (130-400)
--- NOTE | 2020-04-13 13:52 | NUR ---
RT FA IV INFILTRATED. D/C WITH CATHETER TIP INTACT. NEW 22G IV STARTED TO LT FA X1 STICK. PRE-OP MEDS GIVEN.
--- NOTE | 2020-04-13 14:54 | NUR ---
PT TO GI LAB
[2020-04-13] MEDS ORDERED: HYDROCODON-ACE1 EA10 PO (16:26)
--- NOTE | 2020-04-13 16:27 | NUR ---
RECEIVED PT BACK TO ROOM 2118. VITAL SIGNS STABLE. PT ASKING IF SHE CAN HAVE PAIN MEDICATION BUT DOES NOT WANT MORPHINE. STATES THAT SHE TAKES NORCO 10 AT HOME. WILL CALL SULMA Duran APRN AND SEE IF IT CAN BE ORDERED.
--- NOTE | 2020-04-13 16:57 | NUR ---
CALLED WILVER BENITEZ APRN AND INFORMED HIM THAT PT ASKING IF SHE CAN HAVE NORCO INSTEAD OF MORHINE. PER SULMA OK TO START NORCO.
--- NOTE | 2020-04-13 17:07 | NUR ---
NORCO GIVEN FOR PAIN LEVEL OF 7/10. PT DENIES ANY NEEDS AT THIS TIME. CALL LIGHT IN REACH.
[2020-04-14] VITALS: BP 94/51
--- NOTE | 2020-04-14 05:01 | NUR ---
PT UP TO SHOWER, POSITION CLERK AT BED SIDE, LINENS CHANGED.
[2020-04-14 06:38] LABS: BASOPHILS 0.5 % (0-2); EOSINOPHILS 2.5 % (0-7); HEMATOCRIT 36.9 % (36.0-48.0); HEMOGLOBIN 11.8 g/dL (12-16); IMMATURE GRANULOCYTES 0.4 % (0-5); LYMPHOCYTES 25.6 % (15-50); MCH 32.7 pg (26.0-34.0); MCV 102.2 fL (80.0-100.0); MEAN PLATELET VOLUME 10.7 fL (7.4-10.4); MONOCYTES 9.3 % (2-11); NEUTROPHILS 61.7 % (40-80); RBC 3.61 10x6/uL (4.00-5.40)
[2020-04-14 07:02] LABS: PLATELET COUNT 242 10x3/uL (130-400); WBC 7.6 10x3/uL (4.8-10.8)
[2020-04-14 07:06] VITALS: BP 104/74
[2020-04-14 07:11] LABS: ALBUMIN 3.1 g/dL (3.4-5.0); ANION GAP 12.3 mmol/L (8-16); BILIRUBIN - TOTAL 0.58 mg/dL (0.2-1.3); CARBON DIOXIDE 27.2 mmol/L (21.0-32.0); CREATININE - SERUM 0.9 mg/dL (0.6-1.3); POTASSIUM - SERUM 3.5 mmol/L (3.5-5.1); PROTEIN - SERUM 6.7 g/dL (6.4-8.2)
[2020-04-14 11:03] VITALS: BP 92/50
[2020-04-14 14:07] VITALS: Ht 154.9 cm; Wt 78.9 kg
[2020-04-14 14:57] VITALS: BP 98/55
--- NOTE | 2020-04-14 15:35 | MORECARE ---
CASE MANAGEMENT DISCHARGE SUMMARY PATIENT: JEANETH ZAMBRANO UNIT: [id number] ADM DATE: 04/11/20 AGE: 60 : 58 SEX: F ROOM/BED: D.1958 AUTHOR: MORRIS,DOC PHYSICIAN: REFERRING PHYSICIAN: MAGDALENA RAMOS MD DATE OF SERVICE: 04/14/20 Discharge Plan Patient Name: JEANETH ZAMBRANO Facility: [facility]:[place] : 1960 Planned Disposition: Home Anticipated Discharge Date: Discharge Date: Expected LOS: Initial Reviewer: [id number] Initial Review Date: 04/14/2020 Generated: 04/14/20 4:34 pm Comments DCP- Discharge Planning Updated by [email or web address]: Sierra Bañuelos on 04/14/20 2:[address] Patient Name: JEANETH ZAMBRANO Admission Status: ER Accout number: [id number] Admission Date: 04-11-2020 : 1960 Admission Diagnosis: Attending: LYNNETTE Current LOS: 3 Anticipated DC Date: Planned Disposition: Home Primary Insurance: [place] [employer] Discharge Planning Comments: CM met with patient to complete initial dc planning assessment. CM educated patient on the CM role and verbal consent given by patient to complete assessment. Patient lives at home with her spouse, daughter (Cesar), Cesar's boyfriend (Ari) a 3 year old and an 11 month old grand child. At discharge patient plans to return and feels this is a safe discharge. CM discussed availability of home health, rehab services, and medical equipment. Patient denied known discharge needs at this time. CM will continue to follow and will assist as needed with dc plans/needs. Table Cut Off Saw Operator: Sierra Bañuelos DCPIA - Discharge Planning Initial Assessment Updated by [email or web address]: Sierra Bañuelos on 04/14/20 3:31 pm * Is the patient Alert and Oriented? Yes * How many steps to enter\exit or inside your home? 1/0 * PCP Dr. Ramos * Pharmacy [facility] * Preadmission Environment Home with Family * ADLs Independent * Equipment Shower Chair Walker * List name and contact numbers for known caregivers / representatives who currently or will assist patient after discharge: Brian Zambrano - spouse - [phone] * Verbal permission to speak to the caregivers and representatives has been obtained from the patient. Yes * Community resources currently utilized None * Additional services required to return to the preadmission environment? No * Can the patient safely return to the preadmission environment? Yes * Has this patient been hospitalized within the prior 30 days at any hospital? No Patient Name: JEANETH ZAMBRANO Page [phone] at 1535 All edits/amendments must be made on the electronic document DICTATION DATE: 04/14/20 1535 INSTRUCTOR ROBOTICS: FRANCO 04/14/20 1535 RPT#: [id number] DC DATE: STATUS: ADM IN [facility] [address] [place] [address] END OF REPORT
[2020-04-14 20:00] VITALS: BP 108/61; BP 108/64
[2020-04-15 04:00] VITALS: BP 116/67
[2020-04-15 07:52] LABS: HEMATOCRIT 31.9 % (36.0-48.0); HEMOGLOBIN 10.3 g/dL (12-16); MCHC 32.3 g/dL (31.0-37.0); MCV 102.2 fL (80.0-100.0); MEAN PLATELET VOLUME 10.9 fL (7.4-10.4); PLATELET COUNT 234 10x3/uL (130-400); RBC 3.12 10x6/uL (4.00-5.40); RDW 15.3 % (11.5-14.5)
[2020-04-15 07:53] LABS: WBC 5.6 10x3/uL (4.8-10.8)
[2020-04-15 08:19] LABS: ALBUMIN 2.8 g/dL (3.4-5.0); ANION GAP 10.1 mmol/L (8-16); BILIRUBIN - TOTAL 0.33 mg/dL (0.2-1.3); CALCIUM 8.8 mg/dL (8.5-10.1); CARBON DIOXIDE 29.6 mmol/L (21.0-32.0); CREATININE - SERUM 0.9 mg/dL (0.6-1.3); POTASSIUM - SERUM 3.7 mmol/L (3.5-5.1); PROTEIN - SERUM 5.9 g/dL (6.4-8.2)
[2020-04-15 09:17] LABS: EOSINOPHILS 5 % (0-7); LYMPHOCYTES 36 % (15-50); MONOCYTES 9 % (2-11); NEUTROPHILS 50 % (40-80); PLATELET ESTIMATE NORMAL
[2020-04-15 11:52] VITALS: BP 94/62
[2020-04-15 17:07] VITALS: BP 115/78
[2020-04-15 20:00] VITALS: BP 104/61
[2020-04-16 07:11] LABS: BASOPHILS 0.7 % (0-2); EOSINOPHILS 5.3 % (0-7); HEMATOCRIT 31.7 % (36.0-48.0); HEMOGLOBIN 10.2 g/dL (12-16); IMMATURE GRANULOCYTES 0.7 % (0-5); LYMPHOCYTES 38.1 % (15-50); MCH 32.7 pg (26.0-34.0); MCHC 32.2 g/dL (31.0-37.0); MCV 101.6 fL (80.0-100.0); MEAN PLATELET VOLUME 10.3 fL (7.4-10.4); MONOCYTES 10.5 % (2-11); NEUTROPHILS 44.7 % (40-80); PLATELET COUNT 259 10x3/uL (130-400); RBC 3.12 10x6/uL (4.00-5.40); RDW 15.1 % (11.5-14.5); WBC 5.7 10x3/uL (4.8-10.8)
[2020-04-16 07:56] LABS: ALBUMIN 2.7 g/dL (3.4-5.0); ALKALINE PHOSPHATASE 63 U/L (30-120); BILIRUBIN - TOTAL 0.18 mg/dL (0.2-1.3); CALCIUM 8.9 mg/dL (8.5-10.1); CARBON DIOXIDE 30.5 mmol/L (21.0-32.0); CHLORIDE - SERUM 105 mmol/L (98-107); CREATININE - SERUM 0.8 mg/dL (0.6-1.3); GLUCOSE 75 mg/dL (74-106); PROTEIN - SERUM 5.8 g/dL (6.4-8.2); SODIUM 140 mmol/L (136-145); eGFR NON AFRICAN AMERICAN 77 mL/min (90-120)
[2020-04-16 07:58] LABS: ALT (SGPT) 14 U/L (10-68); CALC OSMOLALITY 275 mosm/kg (275-300); POTASSIUM - SERUM 4.3 mmol/L (3.5-5.1); UREA NITROGEN 7 mg/dL (7-18)
[2020-04-16 08:22] VITALS: BP 107/59
--- NOTE | 2020-04-16 10:57 | NUR ---
SPOKE WITH GINI IN CT. HE STATED THAT THERE WAS TOO MUCH BARIUM IN THE COLON AND THAT I WOULD NEED TO SPEAK WITH ABOUT POSSIBLY FLUSHING THE PATIENT AND REORDERING THE KUB AND CT. WILL PAGE AND CTM. RECEIVED ORDERS THAT PT CAN EAT.
[2020-04-16 12:23] VITALS: BP 102/52
--- NOTE | 2020-04-16 12:54 | NUR ---
Nutrition Follow-up: Pt had not eaten at time of visit this AM 2/2 testing. Noted Abd XR showed large amt of retained barium contrast; CT A/P pending but still too much barium in the colon. S/p MBSS on 04/14; PROFILER reports pharyngeal dysphagia and recs ENT consult and ST. Pt reports nausea without vomiting yesterday. Last BM 04/14. Diet: Full Liquid Wt: 174# (04/14) Labs noted: Alb 2.7 Meds noted: vitamin B12, Folate, Carafate, Florajen, Protonix, Zofran, Lasix, KDur, NS @ 75, electrolyte protocol -Encourage PO intake and honor food preferences within diet restrictions. -Monitor wt; noted daily wts ordered. -RD following.
[2020-04-16 15:12] VITALS: BP 106/56
[2020-04-16 22:26] VITALS: BP 125/58
[2020-04-17 02:47] VITALS: BP 111/71
[2020-04-17 06:15] VITALS: BP 115/65
--- NOTE | 2020-04-17 09:00 | NUR ---
lactulose given for constipation.
[2020-04-17 09:27] VITALS: BP 135/72
--- NOTE | 2020-04-17 12:00 | NUR ---
HAS HAD 2 BOWEL MOVEMENTS. KUB ORDERED.
--- NOTE | 2020-04-17 12:54 | NUR ---
URINE SPECIMEN COLLECTED AND TAKEN TO LAB. WILL MONITOR.
[2020-04-17 13:00] VITALS: BP 107/59
[2020-04-17 13:25] LABS: BILIRUBIN NEGATIVE (NEGATIVE); KETONE NEGATIVE (NEGATIVE); NITRITE NEGATIVE (NEGATIVE); UROBILINOGEN NORMAL mg/dL (< 2)
[2020-04-17 17:18] VITALS: BP 149/77
[2020-04-17 20:00] VITALS: BP 110/74
--- NOTE | 2020-04-17 20:03 | NUR ---
INITIAL ROUNDS AND ASSESSMENT COMPLETED. CALL LIGHT IN REACH. NO DISTRESS.
--- NOTE | 2020-04-17 21:58 | NUR ---
PT CLEANED UP FROM EPISODE OF DIARRHEA. BEDTIME MEDS GIVEN. REQUESTED PAIN MED GIVEN. REFUSED MIRALAX DUE TO MULTIPLE EPISODES OF INCONTINENCE OF BOWEL. CURRENTLY VISITING IN ROOM. PT DOES ASK THAT SHE NOT BE BATHED TONIGHT SINCE SHE IS SO TIRED FROM ALL OF TODAYS ACTIVITIES.
--- NOTE | 2020-04-18 01:59 | NUR ---
C/O CHRONIC BACK PAIN. MEDICATED WITH NORCO FOR PAIN 03/02. CALL LIGHT IN REACH. CPOC.
[2020-04-18 04:00] VITALS: BP 104/66
[2020-04-18 07:01] LABS: BASOPHILS 0.4 % (0-2); EOSINOPHILS 3.1 % (0-7); HEMATOCRIT 32.8 % (36.0-48.0); HEMOGLOBIN 10.5 g/dL (12-16); IMMATURE GRANULOCYTES 0.4 % (0-5); LYMPHOCYTES 37.1 % (15-50); MCH 32.2 pg (26.0-34.0); MCV 100.6 fL (80.0-100.0); MEAN PLATELET VOLUME 10.3 fL (7.4-10.4); MONOCYTES 16.6 % (2-11); NEUTROPHILS 42.4 % (40-80); PLATELET COUNT 276 10x3/uL (130-400); RBC 3.26 10x6/uL (4.00-5.40); RDW 14.4 % (11.5-14.5); WBC 4.8 10x3/uL (4.8-10.8)
[2020-04-18 07:23] LABS: ALBUMIN 2.7 g/dL (3.4-5.0); BILIRUBIN - TOTAL 0.17 mg/dL (0.2-1.3); CREATININE - SERUM 0.9 mg/dL (0.6-1.3); PROTEIN - SERUM 5.7 g/dL (6.4-8.2)
[2020-04-18 07:31] LABS: ANION GAP 9.6 mmol/L (8-16); POTASSIUM - SERUM 3.6 mmol/L (3.5-5.1)
[2020-04-18 08:24] VITALS: BP 106/45
--- NOTE | 2020-04-18 10:04 | NUR ---
NORCO GIVEN FOR PAIN LEVEL OF 7/10. PT DENIES ANY OTHER NEEDS AT THIS TIME. CALL LIGHT IN REACH.
[2020-04-18 12:10] VITALS: BP 93/57
--- NOTE | 2020-04-18 16:13 | NUR ---
GAVE NORCO FOR PAIN LEVEL OF 7/10. PT DENIES ANY OTHER NEEDS AT THIS TIME. CALL LIGHT IN REACH, NAD NOTED, WILL CONTIUE TO MONITOR.
[2020-04-18 16:24] VITALS: BP 103/55
--- NOTE | 2020-04-18 20:00 | NUR ---
INITIAL ROUNDS AND ASSESSMENT COMPLETED. PT'S INITIAL BP 81/48. SHE IS WANTING PAIN MEDS FOR CHRONIC BACK PAIN BUT UNDERSTANDS THAT BP NEEDS TO BE HIGHER BEFORE SHE CAN SAFELY RECIEVE ANY MEDS. CPOC.
[2020-04-18 21:14] VITALS: BP 81/48
[2020-04-19 00:16] VITALS: BP 97/61
[2020-04-19 04:00] VITALS: BP 118/34
[2020-04-19 04:54] LABS: BASOPHILS 0.3 % (0-2); EOSINOPHILS 2.9 % (0-7); HEMATOCRIT 34.3 % (36.0-48.0); IMMATURE GRANULOCYTES 0.5 % (0-5); LYMPHOCYTES 40.4 % (15-50); MCH 32.4 pg (26.0-34.0); MCHC 32.1 g/dL (31.0-37.0); MCV 100.9 fL (80.0-100.0); MEAN PLATELET VOLUME 10.6 fL (7.4-10.4); MONOCYTES 11.8 % (2-11); NEUTROPHILS 44.1 % (40-80); PLATELET COUNT 271 10x3/uL (130-400); RDW 14.5 % (11.5-14.5); WBC 5.9 10x3/uL (4.8-10.8)
[2020-04-19 05:05] LABS: ALBUMIN 2.8 g/dL (3.4-5.0); ANION GAP 7.7 mmol/L (8-16); BILIRUBIN - TOTAL 0.13 mg/dL (0.2-1.3); CALCIUM 8.8 mg/dL (8.5-10.1); CARBON DIOXIDE 31.2 mmol/L (21.0-32.0); CREATININE - SERUM 0.9 mg/dL (0.6-1.3); POTASSIUM - SERUM 3.9 mmol/L (3.5-5.1); PROTEIN - SERUM 5.9 g/dL (6.4-8.2)
[2020-04-19 08:13] VITALS: BP 126/72
[2020-04-19] MEDS ORDERED: FOLIC ACID1 MG PO (10:26)
[2020-04-19] MEDS ORDERED: ZOFRAN ODT4 MG/UDTAB PO (10:26)
[2020-04-19] MEDS ORDERED: MELATONIN 3 MG1 TAB PO (10:26)
[2020-04-19] MEDS ORDERED: CARAFATE1 G PO (11:56)
--- NOTE | 2020-04-19 12:36 | NUR ---
IV AND TELEMETRY DCD. DC PLANS GIVEN. UNDERSTANDONG VOICED. ESCORTED TO CAR BY W/C.
--- NOTE | 2020-04-19 13:41 | MORECARE ---
CASE MANAGEMENT DISCHARGE SUMMARY PATIENT: JEANETH ZAMBRANO UNIT: [id number] ADM DATE: 04/11/20 AGE: 60 : 58 SEX: F ROOM/BED: D.8059 AUTHOR: MORRIS,DOC PHYSICIAN: REFERRING PHYSICIAN: MAGDALENA RAMOS MD DATE OF SERVICE: 04/19/20 Discharge Plan Patient Name: JEANETH ZAMBRANO Facility: [facility]:[place] : 1960 Planned Disposition: Home Anticipated Discharge Date: Discharge Date: 04/19/2020 Expected LOS: Initial Reviewer: [id number] Initial Review Date: 04/14/2020 Generated: 04/19/20 2:40 pm Comments DCP- Discharge Planning Updated by [email or web address]: Remy Hargrove on 04/19/20 12:[address] Patient Name: JEANETH ZAMBRANO Encounter No: [id number] : 1960 Primary Insurance: [employer] [facility] Anticipated DC Date: Planned Disposition: Home External Planned Provider: : DCP follow-up note: Patient in agreement with discharge plan. No changes to plan. Case management will follow and assist as needed. Remy Hargrove DCP- Discharge Planning Updated by [email or web address]: Sierra Bañuelos on 04/14/20 2:[address] Patient Name: JEANETH ZAMBRANO Admission Status: ER Accout number: [id number] Admission Date: 04-11-2020 : 1960 Admission Diagnosis: Attending: LYNNETTE Current LOS: 3 Anticipated DC Date: Planned Disposition: Home Primary Insurance: [employer] [facility] Discharge Planning Comments: CM met with patient to complete initial dc planning assessment. CM educated patient on the CM role and verbal consent given by patient to complete assessment. Patient lives at home with her spouse, daughter (Cesar), Cesar's boyfriend (Ari) a 3 year old and an 11 month old grand child. At discharge patient plans to return and feels this is a safe discharge. CM discussed availability of home health, rehab services, and medical equipment. Patient denied known discharge needs at this time. CM will continue to follow and will assist as needed with dc plans/needs. Pediatric Np: Sierra Edda DCPIA - Discharge Planning Initial Assessment Updated by [email or web address]: Sierra Peñalisa on 04/14/20 3:31 pm * Is the patient Alert and Oriented? Yes * How many steps to enter\exit or inside your home? 1/0 * PCP Dr. Ramos * Pharmacy [facility] * Preadmission Environment Home with Family * ADLs Independent * Equipment Shower Chair Walker * List name and contact numbers for known caregivers / representatives who currently or will assist patient after discharge: Brian Zambrano [facility] - [phone] * Verbal permission to speak to the caregivers and representatives has been obtained from the patient. Yes * Community resources currently utilized None * Additional services required to return to the preadmission environment? No * Can the patient safely return to the preadmission environment? Yes * Has this patient been hospitalized within the prior 30 days at any hospital? No Coverage Notice Reviewer: [email or web address] Faina Hargrove Notice Issued Date-Time: 04/19/2020 11:22 Notice Type: Patient Choice Letter Notice Delivered To: Patient Relationship to Patient: Self Digital Operations Analyst Name: Delivery Method: HAND - Hand Delivered Gema Days: Prior Verbal Notification: Recipient Understood Notice: Yes Recipient Signature: Yes Med Rec Note Co-signed by Attending: Coverage Notice Comment: 0 DME/SNF/HHS/IPR Last DP export: 04/14/20 2:35 p Patient Name: JEANETH ZAMBRANO Page [id number] at 1341 All edits/amendments must be made on the electronic document DICTATION DATE: 04/19/20 1340 GARMENT STEAMER: FRANCO 04/19/20 1340 RPT#: [id number] DC DATE:04/19/20 STATUS: DIS IN [facility] [address] [place] [address] END OF REPORT
--- NOTE | 2020-04-19 13:48 | MORECARE ---
CASE MANAGEMENT DISCHARGE SUMMARY PATIENT: JEANETH ZAMBRANO UNIT: [id number] ADM DATE: 04/11/20 AGE: 60 : 58 SEX: F ROOM/BED: D.5794 AUTHOR: MORRIS,DOC PHYSICIAN: REFERRING PHYSICIAN: MAGDALENA RAMOS MD DATE OF SERVICE: 04/19/20 Discharge Plan Patient Name: JEANETH ZAMBRANO Facility: [facility]:[employer] : 1960 Planned Disposition: Home Anticipated Discharge Date: Discharge Date: 04/19/2020 Expected LOS: Initial Reviewer: [email or web address] Initial Review Date: 04/14/2020 Generated: 04/19/20 2:48 pm Comments DCP- Discharge Planning Updated by [email or web address]: Remy Hargrove on 04/19/20 12:[address] Patient Name: JEANETH ZAMBRANO Encounter No: [id number] : 1960 Primary Insurance: [employer] [facility] Anticipated DC Date: Planned Disposition: Home External Planned Provider: : DCP follow-up note: Patient in agreement with discharge plan. No changes to plan. Case management will follow and assist as needed. Remy Hargrove DCP- Discharge Planning Updated by [id number]: Sierra Bañuelos on 04/14/20 2:[address] Patient Name: JEANETH ZAMBRANO Admission Status: ER Accout number: [id number] Admission Date: 04-11-2020 : 1960 Admission Diagnosis: Attending: LYNNETTE Current LOS: 3 Anticipated DC Date: Planned Disposition: Home Primary Insurance: [employer] [facility] Discharge Planning Comments: CM met with patient to complete initial dc planning assessment. CM educated patient on the CM role and verbal consent given by patient to complete assessment. Patient lives at home with her spouse, daughter (Cesar), Cesar's boyfriend (Ari) a 3 year old and an 11 month old grand child. At discharge patient plans to return and feels this is a safe discharge. CM discussed availability of home health, rehab services, and medical equipment. Patient denied known discharge needs at this time. CM will continue to follow and will assist as needed with dc plans/needs. Food Service Substitute: Sierra Edda DCPIA - Discharge Planning Initial Assessment Updated by [id number]: Sierra Peñalisa on 04/14/20 3:31 pm * Is the patient Alert and Oriented? Yes * How many steps to enter\exit or inside your home? 1/0 * PCP Dr. Ramos * Pharmacy [facility] * Preadmission Environment Home with Family * ADLs Independent * Equipment Shower Chair Walker * List name and contact numbers for known caregivers / representatives who currently or will assist patient after discharge: Brian Zambrano [facility] - [phone] * Verbal permission to speak to the caregivers and representatives has been obtained from the patient. Yes * Community resources currently utilized None * Additional services required to return to the preadmission environment? No * Can the patient safely return to the preadmission environment? Yes * Has this patient been hospitalized within the prior 30 days at any hospital? No Coverage Notice Reviewer: [id number] Faina Hargrove Notice Issued Date-Time: 04/19/2020 11:22 Notice Type: Patient Choice Letter Notice Delivered To: Patient Relationship to Patient: Self Ladle Patcher Name: Delivery Method: HAND - Hand Delivered Gema Days: Prior Verbal Notification: Recipient Understood Notice: Yes Recipient Signature: Yes Med Rec Note Co-signed by Attending: Coverage Notice Comment: 0 DME/SNF/HHS/IPR Last DP export: 04/19/20 12:41 p Patient Name: JEANETH ZAMBRANO Page [id number] at 1348 All edits/amendments must be made on the electronic document DICTATION DATE: 04/19/20 1348 AUDIT TECH: FRANCO 04/19/20 1348 RPT#: [id number] DC DATE:04/19/20 STATUS: DIS IN [facility] [address] [place] [address] END OF REPORT
--- NOTE | 2020-04-20 08:44 | MORECARE ---
CASE MANAGEMENT DISCHARGE SUMMARY PATIENT: JEANETH ZAMBRANO UNIT: [id number] ADM DATE: 04/11/20 AGE: 60 : 58 SEX: F ROOM/BED: D.6447 AUTHOR: MORRIS,DOC PHYSICIAN: REFERRING PHYSICIAN: MAGDALENA RAMOS MD DATE OF SERVICE: 04/20/20 Discharge Plan Patient Name: JEANETH ZAMBRANO Facility: [facility]:[place] : 1960 Planned Disposition: Home Anticipated Discharge Date: Discharge Date: 04/19/2020 Expected LOS: Initial Reviewer: [id number] Initial Review Date: 04/14/2020 Generated: 04/20/20 9:43 am Comments DCP- Discharge Planning Updated by [email or web address]: Remy Hargrove on 04/19/20 12:[address] Patient Name: JEANETH ZAMBRANO Encounter No: [id number] : 1960 Primary Insurance: [employer] [facility] Anticipated DC Date: Planned Disposition: Home External Planned Provider: : DCP follow-up note: Patient in agreement with discharge plan. No changes to plan. Case management will follow and assist as needed. Remy Hargrove DCP- Discharge Planning Updated by [email or web address]: Sierra Bañuelos on 04/14/20 2:[address] Patient Name: JEANETH ZAMBRANO Admission Status: ER Accout number: [id number] Admission Date: 04-11-2020 : 1960 Admission Diagnosis: Attending: LYNNETTE Current LOS: 3 Anticipated DC Date: Planned Disposition: Home Primary Insurance: [employer] [facility] Discharge Planning Comments: CM met with patient to complete initial dc planning assessment. CM educated patient on the CM role and verbal consent given by patient to complete assessment. Patient lives at home with her spouse, daughter (Cesar), Cesar's boyfriend (Ari) a 3 year old and an 11 month old grand child. At discharge patient plans to return and feels this is a safe discharge. CM discussed availability of home health, rehab services, and medical equipment. Patient denied known discharge needs at this time. CM will continue to follow and will assist as needed with dc plans/needs. Installation Drafter: Sierra Edda DCPIA - Discharge Planning Initial Assessment Updated by [email or web address]: Sierra Peñalisa on 04/14/20 3:31 pm * Is the patient Alert and Oriented? Yes * How many steps to enter\exit or inside your home? 1/0 * PCP Dr. Ramos * Pharmacy [employer] * Preadmission Environment Home with Family * ADLs Independent * Equipment Shower Chair Walker * List name and contact numbers for known caregivers / representatives who currently or will assist patient after discharge: Brian Zambrano [facility] - [phone] * Verbal permission to speak to the caregivers and representatives has been obtained from the patient. Yes * Community resources currently utilized None * Additional services required to return to the preadmission environment? No * Can the patient safely return to the preadmission environment? Yes * Has this patient been hospitalized within the prior 30 days at any hospital? No Coverage Notice Reviewer: [id number] Faina Hargrove Notice Issued Date-Time: 04/19/2020 11:22 Notice Type: Patient Choice Letter Notice Delivered To: Patient Relationship to Patient: Self Supervisor Gear Repair Name: Delivery Method: HAND - Hand Delivered Gema Days: Prior Verbal Notification: Recipient Understood Notice: Yes Recipient Signature: Yes Med Rec Note Co-signed by Attending: Coverage Notice Comment: 0 DME/SNF/HHS/IPR Last DP export: 04/19/20 12:48 p Patient Name: JEANETH ZAMBRANO Page [phone] at 0844 All edits/amendments must be made on the electronic document DICTATION DATE: 04/20/20842 URBAN REDEVELOPMENT SPECIALIST: FRANCO 04/20/2043 RPT#: [id number] DC DATE:04/19/20 STATUS: DIS IN [facility] [address] [place] [address] END OF REPORT
== END 2020-04-19 12:37 | disposition home or self-care (01) | DRG 382 ==
LOC: D.ER 00:12 → D.M2 03:52 → OBSVTIME 04-11 09:00 → D.M2 04-11 09:47
PROVIDERS: Family Medicine; Internal Medicine Gastroenterology; Legal Medicine; ADMIT Emergency Medicine; ATTEND Emergency Medicine
PROC: 0DB68ZX Excision of Stomach, Via Natural or Artificial Opening Endoscopic, Diagnostic (ICD-10-PCS; 2020-04-13)
PROC: 0D758ZZ Dilation of Esophagus, Via Natural or Artificial Opening Endoscopic (ICD-10-PCS; principal; 2020-04-13 07:21)
DX: K22.10 Ulcer of esophagus without bleeding (principal); I25.10 Atherosclerotic heart disease of native coronary artery without angina pectoris; J44.9 Chronic obstructive pulmonary disease, unspecified; I10 Essential (primary) hypertension; E78.5 Hyperlipidemia, unspecified; K22.2 Esophageal obstruction; K29.70 Gastritis, unspecified, without bleeding; K29.80 Duodenitis without bleeding; D64.9 Anemia, unspecified

== ENCOUNTER → 2020-09-28 18:12 | Outpatient (CLI) | payer MEDICAID ==
[2020-09-13 04:23] VITALS: BMI 28.4
[~2020-09-28 18:12] MED LIST changes: +CARAFATE1 G PO; +CORTISPORIN OTI10 M1 LEFT EAR; -CYMBALTA20 MG PO; +CYMBALTA60 MG PO; +FLUTICASONE PRO16 GM NASAL; +FOLIC ACID1 MG PO; +FUROSEMIDE20 MG PO; -FUROSEMIDE40 MG PO; -LIPITOR20 MG PO; +LIPITOR40 MG PO; +MELATONIN 3 MG1 TAB PO; +MOBIC7.5 MG PO; +PEPCID40 MG PO; +REGLAN10 MG PO; +SINGULAIR10 MG PO; +SYMBICORT 16010.2 GM INH; +TYLENOL W/CODEI1 TAB PO; +ZOFRAN ODT4 MG/UDTAB PO
[2020-09-28 20:34] LABS: BILIRUBIN NEGATIVE (NEGATIVE); KETONE NEGATIVE (NEGATIVE); NITRITE NEGATIVE (NEGATIVE); UROBILINOGEN NORMAL mg/dL (< 2)
== END | disposition home or self-care (01) ==
LOC: D.LABREF 18:12
PROVIDERS: ATTEND Emergency Medicine
DX: R39.15 Urgency of urination (principal)

== ENCOUNTER → 2020-11-17 08:31 | Outpatient (CLI) | payer MEDICAID ==
[2020-09-13 04:23] VITALS: BMI 28.4
== END | disposition home or self-care (01) ==
LOC: D.HCCARDIO 08:31
PROVIDERS: ATTEND Internal Medicine Cardiovascular Disease
DX: I10 Essential (primary) hypertension (principal)

== ENCOUNTER → 2020-11-20 08:59 | Outpatient (CLI) | payer BC ==
[2020-09-13 04:23] VITALS: BMI 28.4
== END | disposition home or self-care (01) ==
LOC: D.NM 08:59
PROVIDERS: ATTEND Internal Medicine Gastroenterology
DX: R68.81 Early satiety (principal); R10.817 Generalized abdominal tenderness; R13.10 Dysphagia, unspecified; K22.4 Dyskinesia of esophagus

== ENCOUNTER 2020-11-25 09:30 | Outpatient (CLI) | payer BC ==
[2020-09-13 04:23] VITALS: BMI 28.4
--- NOTE | 2020-11-25 10:36 | NUR ---
MANOMETRY COMPLETED. TOLERATED WELL. DC'D HOME AMBULATORY. VOICES NO NEEDS.
== END 2020-11-25 10:25 | disposition home or self-care (01) ==
LOC: D.OPS 09:30
PROVIDERS: ATTEND Internal Medicine Gastroenterology
DX: R68.81 Early satiety (principal); R10.817 Generalized abdominal tenderness; R13.10 Dysphagia, unspecified; K22.4 Dyskinesia of esophagus

== ENCOUNTER 2020-12-15 18:34 | Inpatient (IN) | payer BC ==
[~2020-12-15] VITALS: Ht 154.9 cm; Wt 102.1 kg
--- NOTE | 2020-12-15 19:07 | NUR ---
PT REPORT GIVEN TO PAGE DUFFY AT THIS TIME.
[2020-12-15 20:16] LABS: CALC OSMOLALITY 281 mosm/kg (275-300); CALCIUM 9.7 mg/dL (8.5-10.1); CHLORIDE - SERUM 101 mmol/L (98-107); CREATININE - SERUM 0.8 mg/dL (0.6-1.3); GLUCOSE 118 mg/dL (74-106); SODIUM 141 mmol/L (136-145); UREA NITROGEN 12 mg/dL (7-18); eGFR NON AFRICAN AMERICAN 77 mL/min (90-120)
[2020-12-15 20:20] LABS: BASOPHILS 0.1 % (0-2); EOSINOPHILS 0.1 % (0-7); HEMATOCRIT 40.9 % (36.0-48.0); HEMOGLOBIN 14.1 g/dL (12-16); IMMATURE GRANULOCYTES 0.2 % (0-5); LYMPHOCYTES 12.5 % (15-50); MCHC 34.5 g/dL (31.0-37.0); MCV 89.9 fL (80.0-100.0); MEAN PLATELET VOLUME 10.8 fL (7.4-10.4); MONOCYTES 6.8 % (2-11); NEUTROPHIL ABS# 7.06 10x3/uL (1.56-6.13); NEUTROPHILS 80.3 % (40-80); PLATELET COUNT 198 10x3/uL (130-400); RBC 4.55 10x6/uL (4.00-5.40); RDW 13.8 % (11.5-14.5); WBC 8.8 10x3/uL (4.8-10.8)
[2020-12-15 20:30] LABS: ALBUMIN 3.7 g/dL (3.4-5.0); ALKALINE PHOSPHATASE 76 U/L (30-120); ALT (SGPT) 13 U/L (10-68); BILIRUBIN - TOTAL 0.32 mg/dL (0.2-1.3); MAGNESIUM - SERUM 1.8 mg/dL (1.8-2.4); PRO BNP 757 pg/mL (0-125); PROTEIN - SERUM 7.7 g/dL (6.4-8.2); THYROID STIMULATING HORMONE 1.35 uIU/mL (0.36-3.74)
[2020-12-15 20:42] LABS: LIPASE 42 U/L (73-393); TROPONIN-I < 0.017 ng/mL (0.000-0.060)
[2020-12-15 21:19] LABS: UDS - AMPHET NEGATIVE QUAL (NEGATIVE); UDS - BARB NEGATIVE QUAL (NEGATIVE); UDS - BENZO NEGATIVE QUAL (NEGATIVE); UDS - COCAINE NEGATIVE QUAL (NEGATIVE); UDS - OPIATE POSITIVE QUAL (NEGATIVE); UDS - PCP NEGATIVE QUAL (NEGATIVE); UDS - THC POSITIVE QUAL (NEGATIVE)
[2020-12-15 21:27] LABS: BILIRUBIN NEGATIVE (NEGATIVE); KETONE NEGATIVE (NEGATIVE); NITRITE NEGATIVE (NEGATIVE); UROBILINOGEN NORMAL mg/dL (< 2)
[2020-12-15 21:28] LABS: SQUAMOUS EPITHELIAL 0-5 HPF (0-4); WHITE CELLS - URINE 0-5 HPF (0-4)
[2020-12-15 21:29] LABS: BACTERIA FEW HPF (NONE SEEN)
--- NOTE | 2020-12-15 21:48 | NUR ---
PT TELLS NURSE SHE IS HAVING CHEST PAIN, RATED 8/10 INTERMITTENT, SHARP AND DULL. EDP NOTIFIED, EKG OBTAINED.
[2020-12-15 21:51] VITALS: BP 152/71
--- NOTE | 2020-12-15 22:00 | NUR ---
ATTEMPTED TO FLUSH EXISTING IV, PT C/O PAIN. ATTEMPTED IV STICK X2, UNSUCCESSFUL. PT CONTINUES TO COMPLAIN.
--- NOTE | 2020-12-15 23:15 | NUR ---
RECEIVED PT FROM ED VIA BED, A&O X4. PIV TO LEFT WRIST PATENT AND INFUSING, NO REDNESS OR SWELLING. PIV TO LEFT WRIST PATENT AND S/L, NO REDNESS OR SWELLING. PT C/O PAIN IN LOWER ABD, CHEST, RIGHT HIP. PT ABLE TO AMBULATE TO BR WITH STAND BY ASSIST. EDUCATED PT ON CL AND NEEDS, VERBALIZED UNDERSTANDING. BED LOW, CL IN REACH.
[2020-12-16] VITALS (7 sets, daily range): BP systolic 101–137; BP diastolic 51–70; Ht 154.9 cm; Wt 102.1 kg
--- NOTE | 2020-12-16 07:33 | NUR ---
RECIEVED BEDSIDE REPORT. BED LOW POSITION, CALL LIGHT IN REACH. DENIES NEEDS AT THIS TIME. FREE FROM SIGNS OF DISTRESS. WILL CONTINUE TO MONITOR.
[2020-12-16 08:46] LABS: CALC OSMOLALITY 272 mosm/kg (275-300); CALCIUM 8.3 mg/dL (8.5-10.1); CHLORIDE - SERUM 104 mmol/L (98-107); CREATININE - SERUM 0.7 mg/dL (0.6-1.3); GLUCOSE 96 mg/dL (74-106); POTASSIUM - SERUM 3.2 mmol/L (3.5-5.1); SODIUM 137 mmol/L (136-145); UREA NITROGEN 9 mg/dL (7-18); eGFR NON AFRICAN AMERICAN 90 mL/min (90-120)
[2020-12-16 09:19] LABS: BASOPHILS 0.4 % (0-2); EOSINOPHILS 0.3 % (0-7); LYMPHOCYTES 21.2 % (15-50); MCH 30.4 pg (26.0-34.0); MCHC 33.4 g/dL (31.0-37.0); MONOCYTES 11.8 % (2-11); NEUTROPHILS 66.3 % (40-80); PLATELET COUNT 183 10x3/uL (130-400); RDW 14.7 % (11.5-14.5); WBC 9.3 10x3/uL (4.8-10.8)
[2020-12-16 09:21] LABS: RBC 3.63 10x6/uL (4.00-5.40)
--- NOTE | 2020-12-16 19:45 | NUR ---
RECEIVED BEDSIDE REPORT. PT LAYING IN BED A&O X4. PIV TO LEFT WRIST, PATENT AND INFUSING, NO REDNESS OR SWELLING. PIV TO RIGHT WRIST, PATENT AND S/L, NO REDNESS OR SWELLING. TELEMETRY IN PLACE 82 SR. PT ABLE TO AMBULATE AD PARISH. EDUCATED ON CL AND NEEDS, VERBALIZED UNDERSTANDING. BED LOW, CL IN REACH.
[2020-12-17] VITALS: BP 115/65
--- NOTE | 2020-12-17 01:29 | NUR ---
PT C/O LEAKING AT IV SITE ON LEFT WRIST. REMOVED PIV IN LEFT WRIST, CATH INTACT, NO REDNESS OR SWELLING. REMOVED PIV FROM RIGHT WRIST, CATH INTACT, NO REDNESS OR SWELLING. INSERTED PIV TO RIGHT FOREARM 22G, GOOD RETURN, FLUSHES WELL, PT TOLERATED WELL. BED LOW, CL IN REACH.
[2020-12-17 04:00] VITALS: BP 131/77
--- NOTE | 2020-12-17 07:23 | NUR ---
RECIEVED BEDSIDE REPORT. PATIENT RESTING COMFORTABLY. AROUSES TO VOICE, DENIES NEEDS AT THIS TIME. BED LOW POSITION, CALL LIGHT IN REACH. FREE FROM SIGNS OF DISTRESS. WILL CONTINUE TO MONITOR.
[2020-12-17 07:50] VITALS: BP 118/64
[2020-12-17 08:16] LABS: ALBUMIN 3.2 g/dL (3.4-5.0); ALKALINE PHOSPHATASE 58 U/L (30-120); ALT (SGPT) 13 U/L (10-68); BILIRUBIN - TOTAL 0.65 mg/dL (0.2-1.3); CALCIUM 8.4 mg/dL (8.5-10.1); CHLORIDE - SERUM 108 mmol/L (98-107); CREATININE - SERUM 0.8 mg/dL (0.6-1.3); GLUCOSE 82 mg/dL (74-106); POTASSIUM - SERUM 3.2 mmol/L (3.5-5.1); PROTEIN - SERUM 6.1 g/dL (6.4-8.2); SODIUM 144 mmol/L (136-145); eGFR NON AFRICAN AMERICAN 77 mL/min (90-120)
[2020-12-17 08:18] LABS: CALC OSMOLALITY 283 mosm/kg (275-300); UREA NITROGEN 6 mg/dL (7-18)
[2020-12-17 12:17] VITALS: BP 102/53
--- NOTE | 2020-12-17 14:35 | NUR ---
Nutrition follow-up: Pt remains on clear liquid diet at this time. Labs reviewed Reglan increased Wt: 224# Recommend for short-term nutrition support ProcalAmine PPN @ 125 ml/hr RDN follow-up: 12/22/20
[2020-12-17 17:07] VITALS: BP 117/43
--- NOTE | 2020-12-17 19:45 | NUR ---
RECEIVED BEDSIDE REPORT. PT SITTING UP IN CHAIR, A&O X4. PIV TO RIGHT FOREARM, PATENT AND INFUSING, NO REDNESS OR SWELLING. TELEMETRY IN PLACE 69 SR. PT ABLE TO AMBULATE AD PARISH. EDUCATED PT ON CL AND NEEDS, VERBALIZED UNDERSTANDING. BED LOW, CL IN REACH.
[2020-12-17 20:00] VITALS: BP 139/61
[2020-12-18] VITALS: BP 118/53
[2020-12-18 04:00] VITALS: BP 122/67
--- NOTE | 2020-12-18 07:21 | NUR ---
RECIEVED BEDSIDE REPORT. PATIENT AWAKE AND ALERT. BED LOW POSITION, CALL LIGHT IN REACH. DENIES NEEDS AT THIS TIME. FREE FROM SIGNS OF DISTRESS. IN INFUSING PER MAR. WILL CONTINUE TO MONITOR.
[2020-12-18 08:23] VITALS: BP 112/57
[2020-12-18 12:19] VITALS: BP 107/51
[2020-12-18 17:17] VITALS: BP 129/72
[2020-12-18 21:43] VITALS: BP 124/75
[2020-12-19 05:38] VITALS: BP 119/71
--- NOTE | 2020-12-19 10:12 | NUR ---
PT HAD BOUT OF INCONTINENT DIARRHEA, IN SHOWER NOW ASSISTED BY AID, UNABLE TO OBTAIN STOOL SAMPLE AT THIS TIME
[2020-12-19 10:28] VITALS: BP 126/73
[2020-12-19 14:19] VITALS: BP 150/68
[2020-12-19 18:36] VITALS: BP 134/70
[2020-12-19 21:03] VITALS: BP 130/80
[2020-12-20 05:13] VITALS: BP 136/81
[2020-12-20 07:01] LABS: ALBUMIN 2.9 g/dL (3.4-5.0); ALKALINE PHOSPHATASE 59 U/L (30-120); ALT (SGPT) 10 U/L (10-68); BASOPHILS 0.7 % (0-2); BILIRUBIN - TOTAL 0.42 mg/dL (0.2-1.3); CALC OSMOLALITY 285 mosm/kg (275-300); CALCIUM 8.2 mg/dL (8.5-10.1); CARBON DIOXIDE 31.3 mmol/L (21.0-32.0); CHLORIDE - SERUM 107 mmol/L (98-107); CREATININE - SERUM 0.7 mg/dL (0.6-1.3); EOSINOPHILS 4.3 % (0-7); GLUCOSE 86 mg/dL (74-106); HEMATOCRIT 29.3 % (36.0-48.0); LYMPHOCYTES 33.2 % (15-50); MCH 31.1 pg (26.0-34.0); MCV 91.3 fL (80.0-100.0); MONOCYTES 10.7 % (2-11); NEUTROPHILS 51.1 % (40-80); PLATELET COUNT 167 10x3/uL (130-400); PROTEIN - SERUM 5.8 g/dL (6.4-8.2); RBC 3.21 10x6/uL (4.00-5.40); RDW 14.2 % (11.5-14.5); SODIUM 145 mmol/L (136-145); UREA NITROGEN 6 mg/dL (7-18); WBC 5.4 10x3/uL (4.8-10.8); eGFR NON AFRICAN AMERICAN 90 mL/min (90-120)
[2020-12-20 07:09] LABS: POTASSIUM - SERUM 2.8 mmol/L (3.5-5.1)
[2020-12-20 09:56] VITALS: BP 138/71
[2020-12-20 14:06] VITALS: BP 120/43
[2020-12-20 18:38] VITALS: BP 138/72
[2020-12-20 20:00] VITALS: BP 119/49
[2020-12-21] VITALS: BP 135/67
[2020-12-21 04:00] VITALS: BP 126/57
--- NOTE | 2020-12-21 08:14 | NUR ---
RECIEVED BEDSIDE REPORT. IN BED RESTING, AROUSES TO VOICE, DENIES NEEDS AT THIS TIME BED LOW POSITION, CALL LIGHT IN REACH. FREE FROM SIGNS OF DISTRESS. WILL CONTINUE TO MONITOR.
[2020-12-21 10:02] VITALS: BP 141/72
[2020-12-21 13:32] VITALS: BP 123/61
[2020-12-21 16:52] VITALS: BP 104/60
[2020-12-21 20:00] VITALS: BP 115/47
[2020-12-21] MEDS ORDERED: COZAAR25 MG PO (21:04)
[2020-12-21] MEDS ORDERED: BENTYL 20 MG TA20 MG PO (21:04)
[2020-12-21] MEDS ORDERED: FLORAJEN DIGES1 EACH PO (21:06)
[2020-12-21] MEDS ORDERED: COLACE100 MG PO (21:06)
[2020-12-21] MEDS ORDERED: CARAFATE1 G PO (21:07)
[2020-12-21] MEDS ORDERED: PROTONIX40 MG PO (21:07)
[2020-12-21] MEDS ORDERED: FUROSEMIDE20 MG PO (21:08)
--- NOTE | 2020-12-21 23:35 | NUR ---
DISCHARGE ORDER FOUND AT [address] RAMOS AT [id number] DISCHARGE INSTRUCTIONS WELL PAPERWORK GIVEN IV DC'D. DISCHARGED HOME IN WHEELCHAIR WITH LAST WAXER IN ASSIST
== END 2020-12-21 23:30 | disposition home or self-care (01) | DRG 392 ==
LOC: D.ER 18:34 → D.MS 22:30
PROVIDERS: Family Medicine; Legal Medicine; ADMIT Emergency Medicine; ATTEND Emergency Medicine
DX: K31.84 Gastroparesis (principal); N39.0 Urinary tract infection, site not specified; R10.9 Unspecified abdominal pain; E87.6 Hypokalemia; R11.2 Nausea with vomiting, unspecified; I10 Essential (primary) hypertension; J43.9 Emphysema, unspecified; Z87.891 Personal history of nicotine dependence